=== PATIENT | male | born 1970 | race Caucasian/White ===

== ENCOUNTER 2016-05-07 11:58 | Emergency (ER) | payer SELFPAY ==
[2016-05-07] MEDS ORDERED: DOXEPIN 25 MG CAPSULE PO STA (13:35)
[2016-05-07] MEDS ORDERED: QUEtiapine 25 MG TABLET PO STA (13:35)
[2016-05-07] MEDS ORDERED: QUEtiapine 100 MG TABLET PO STA (13:40)
== END 2016-05-07 13:49 | disposition home or self-care (01) ==
DX: F31.9 Bipolar disorder, unspecified (principal); Z76.0 Encounter for issue of repeat prescription; E11.9 Type 2 diabetes mellitus without complications; G47.00 Insomnia, unspecified
CPT/HCPCS: 99283; A9270

== ENCOUNTER 2016-07-06 01:52 | Outpatient (CLI) | payer SELFPAY | END 2016-07-06 01:53 | disposition critical access hospital (66) | LOC: EMS 01:52 | PROVIDERS: ATTEND Surgery | DX: R07.9 Chest pain, unspecified (principal); R00.0 Tachycardia, unspecified; F41.9 Anxiety disorder, unspecified | CPT/HCPCS: A0425; A0429 ==

== ENCOUNTER 2016-07-06 02:11 | Emergency (ER) | payer SELFPAY ==
--- NOTE | 2016-07-06 02:52 | ED Physician Documentation ---
History of Present Illness - Stated complaint Stated Complaint: RAPID HEART RATE - Chief complaint Chief Complaint: Cardiac PD PAST MEDICAL HISTORY - Past Medical History Past Medical History: Yes Cardiovascular: None Respiratory: None Neuro: None Endocrine/Autoimmune: Type 2 diabetes GI: Other : None HEENT: None Psych: Anxiety, Other Musculoskeletal: Other Derm: None Other Past Medical History: ABDOMINAL HERNIA...INSOMNIA..NON COMPLIANT DM... - Past Surgical History Past Surgical History: No - Present Medications Home Medications: Ambulatory Orders Medication Instructions Recorded Confirmed Clonazepam 1 mg PO QPM 01/18/16 05/07/16 QUEtiapine [SEROquel] 1 tab PO DAILY 01/18/16 05/07/16 Clonazepam [Klonopin] 1 mg PO BID #14 tablet 05/07/16 Doxepin HCl 75 mg PO DAILY #30 capsule 05/07/16 Doxepin [SINEquan] 75 mg ORAL DAILY 05/07/16 05/07/16 QUEtiapine [SEROquel] 100 mg PO QPM #30 tablet 05/07/16 Quetiapine Fumarate [Seroquel] 2 tab PO QPM #60 tablet 05/07/16 - Allergies Allergies/Adverse Reactions: Allergies Allergy/AdvReac Type Severity Reaction Status Date / Time No Known Drug Allergies Allergy Verified 07/06/16 02:28 - Social History Does the pt smoke?: No Smoking Status: Never smoker Does the pt drink ETOH?: Yes Does the pt have substance abuse?: No - Immunizations Immunizations are current?: No - POLST Patient has POLST: No Results - Vitals Vitals: Vital Signs - 24 hr 07/06/16 07/06/16 02:20 02:37 Temperature 36.3 C L Heart Rate 99 Respiratory 19 Rate Blood Pressure 138/82 H Blood Pressure 138/82 H [Left] Blood Pressure 129/71 [Right] O2 Saturation 98 Oxygen O2 Source Room air
--- NOTE | 2016-07-06 02:53 | ED Physician Documentation ---
PD HPI CHEST PAIN - Stated complaint Stated Complaint: RAPID HEART RATE - Chief complaint Chief Complaint: Cardiac - History obtained from History obtained from: Patient - History of Present Illness Timing - onset: Today Timing - onset during: Rest, Light activity Timing - duration: Hours Timing - details: Intermittant, Waxing and waning Pain level now: 3 Quality: Pressure Location: Substernal Radiation: No: Jaw, Neck, Back, Abdominal, Left upper extremity, Right upper extremity Improved by: Nothing Worsened by: No: Exertion, Inspiration, Eating, Movement, Palpation, Position Associated symptoms: General Weakness, Palpitations Similar symptoms before: Has not had sx before Recently seen: Not recently seen Review of Systems Constitutional: reports: Reviewed and negative Cardiac: reports: Chest pain / pressure, Palpitations Respiratory: reports: Reviewed and negative GI: reports: Reviewed and negative PD PAST MEDICAL HISTORY - Past Medical History Past Medical History: Yes Cardiovascular: None Respiratory: None Neuro: None Endocrine/Autoimmune: Type 2 diabetes GI: Other : None HEENT: None Psych: Anxiety, Other Musculoskeletal: Other Derm: None Other Past Medical History: ABDOMINAL HERNIA...INSOMNIA..NON COMPLIANT DM... - Past Surgical History Past Surgical History: No - Present Medications Home Medications: Ambulatory Orders Medication Instructions Recorded Confirmed Clonazepam 1 mg PO QPM 01/18/16 05/07/16 QUEtiapine [SEROquel] 1 tab PO DAILY 01/18/16 05/07/16 Clonazepam [Klonopin] 1 mg PO BID #14 tablet 05/07/16 Doxepin HCl 75 mg PO DAILY #30 capsule 05/07/16 Doxepin [SINEquan] 75 mg ORAL DAILY 05/07/16 05/07/16 QUEtiapine [SEROquel] 100 mg PO QPM #30 tablet 05/07/16 Quetiapine Fumarate [Seroquel] 2 tab PO QPM #60 tablet 05/07/16 Metformin HCl 500 mg PO BID #60 tablet 07/06/16 - Allergies Allergies/Adverse Reactions: Allergies Allergy/AdvReac Type Severity Reaction Status Date / Time No Known Drug Allergies Allergy Verified 07/06/16 02:28 - Social History Does the pt smoke?: No Smoking Status: Never smoker Does the pt drink ETOH?: Yes Does the pt have substance abuse?: No - Immunizations Immunizations are current?: No - POLST Patient has POLST: No PD ED PE NORMAL - Vitals Vital signs reviewed: Yes - General General: Alert and oriented X 3, No acute distress, Well developed/nourished - Cardiac Cardiac: RRR, No murmur, No gallop, No rub - Respiratory Respiratory: No respiratory distress, Clear bilaterally - Abdomen Abdomen: Soft, Non tender - Extremities Extremities: No edema Results - Vitals Vitals: Oxygen O2 Source Room air - EKG (time done) No standard instances Rate: Rate (enter#) (95) Rhythm: NSR [place]: LAD Intervals: Prolonged VA, Other (borderline NSIVCD) QRS: Normal Ischemia: Normal ST segments - Labs Labs: Laboratory Tests 07/06/16 07/06/16 07/06/16 03:15 03:15 03:15 WBC 7.1 RBC 4.42 L Hgb 12.8 L Hct 38.3 L MCV 86.7 MCH 29.0 MCHC 33.4 RDW 13.4 Plt Count 233 MPV 8.6 Neut # 5.6 Lymph # 0.9 L [place] # 0.5 Eos # 0.1 Baso # 0.0 Absolute Nucleated RBC 0.00 Nucleated RBCs 0.0 Sodium 137 Potassium 4.4 Chloride 102 Carbon Dioxide 25 Anion Gap 10.0 BUN 22 H Creatinine 1.1 Estimated GFR (MDRD) 72 L Glucose 244 H Calcium 9.5 Total Bilirubin 0.4 AST 24 ALT 32 Alkaline Phosphatase 62 Troponin I < 0.04 Total Protein 7.3 Albumin 4.2 Globulin 3.1 Albumin/Globulin Ratio 1.4 Lipase 21 L - Rads (name of study) chest xray Radiology: Prelim report reviewed, See rad report PD MEDICAL DECISION MAKING - ED course Complexity details: reviewed results, re-evaluated patient, considered differential, d/w patient Departure - Departure Disposition: Home, Self Care Clinical Impression: Hyperglycemia Chest pain Qualifiers: Chest pain type: unspecified Qualified Code(s): R07.9 - Chest pain, unspecified Condition: Good Instructions: ED Chest Pain Atypical Unkn Cause, ED Hyperglycemia Diabetic Follow-Up: [facility] [Provider Group] [facility] [Provider Group] Prescriptions: Metformin HCl 500 mg PO BID #60 tablet Discharge Date/Time: 07/06/16 04:39
[2016-07-06 03:26] LABS: BASOPHILS % (AUTO) 0.6 %; EOSINOPHILS # (AUTO) 0.1 10^3/uL (0.0-0.7); HCT - HEMATOCRIT 38.3 % (42.0-52.0); HGB - HEMOGLOBIN 12.8 g/dL (14.0-18.0); LYMPHOCYTES # (AUTO) 0.9 10^3/uL (1.5-3.5); LYMPHOCYTES % (AUTO) 13.3 %; MEAN CORPUSCULAR HGB CONC 33.4 g/dL (32.0-36.0); MEAN CORPUSCULAR VOLUME 86.7 fL (80.0-94.0); MEAN PLATELET VOLUME 8.6 fL (7.4-11.4); MONOCYTES # (AUTO) 0.5 10^3/uL (0.0-1.0); MONOCYTES % (AUTO) 6.4 %; NEUTROPHILS # (AUTO) 5.6 10^3/uL (1.5-6.6); NEUTROPHILS % (AUTO) 78.7 %; RED BLOOD COUNT 4.42 10^6/uL (4.70-6.10); RED CELL DISTRIBUTION WIDTH 13.4 % (12.0-15.0); UNCORRECTED WHITE BLOOD COUNT 7.1 x10^3/uL; WHITE BLOOD COUNT 7.1 x10^3/uL (4.8-10.8)
[2016-07-06 03:37] LABS: ALBUMIN/GLOBULIN RATIO 1.4 (1.0-2.2); BILIRUBIN,TOTAL 0.4 mg/dL (0.2-1.0); CALCIUM 9.5 mg/dL (8.5-10.3); CREATININE 1.1 mg/dL (0.6-1.2); POTASSIUM 4.4 mmol/L (3.5-5.0); TOTAL PROTEIN 7.3 g/dL (6.7-8.2)
--- NOTE | 2016-07-06 03:56 | XRAY Preliminary Report ---
Exam: XR Chest 2 View PA/LAT IMPRESSION: 1. No acute abnormality seen in the chest. [facility] SITE ID: [id number]
--- NOTE | 2016-07-06 03:58 | XRAY Report ---
EXAM: CHEST RADIOGRAPHY EXAM DATE: 07/06/2016 03:47 AM. CLINICAL HISTORY: Chest pain. COMPARISON: None. TECHNIQUE: 2 views. FINDINGS: Lungs/Pleura: No focal opacities evident. No pleural effusion. No pneumothorax. Normal volumes. Mediastinum: Heart and mediastinal contours are unremarkable. Other: None. IMPRESSION: 1. No acute abnormality seen in the chest. [facility] Referring Provider Line: [phone] SITE ID: [id number]
[2016-07-06] MEDS ORDERED: metFORMIN 500 MG TABLET PO STA (04:24)
[2016-07-06] MEDS ORDERED: metFORMIN 500 MG TABLET ONE (04:30)
[2016-07-06 04:39] VITALS: BP 144/65
== END 2016-07-06 04:39 | disposition home or self-care (01) ==
LOC: EDUNIT# → ED 02:11
DX: E11.65 Type 2 diabetes mellitus with hyperglycemia (principal); Z79.84 Long term (current) use of oral hypoglycemic drugs; R07.9 Chest pain, unspecified
CPT/HCPCS: 36415; 71020; 80053; 83690; 84484; 85025; 93005; 93010; 99284; A9270

== ENCOUNTER 2016-08-31 21:25 | Emergency (ER) | payer MEDICAID ==
[2016-08-31] MEDS ORDERED: QUEtiapine 25 MG TABLET PO STA (22:06)
--- NOTE | 2016-08-31 22:09 | ED Physician Documentation ---
History of Present Illness - Stated complaint Stated Complaint: MED REFILL - Chief complaint Chief Complaint: General - History obtained from History obtained from: Patient - History of Present Illness Timing: Other (Having trouble finding primary care and insurance and needs a refill of his Seroquel and doxepin and clonazepam for insomnia. No acute issues.) Review of Systems Constitutional: denies: Fever, Chills Psychiatric: denies: Depressed, Suicidal, Homicidal, Hallucinations, Delusions, Anxiety Endocrine: reports: Reviewed and negative PD PAST MEDICAL HISTORY - Past Medical History Cardiovascular: None Respiratory: None Neuro: None Endocrine/Autoimmune: Type 2 diabetes GI: Other : None HEENT: None Psych: Anxiety, Other Musculoskeletal: Other Derm: None - Past Surgical History Past Surgical History: No - Present Medications Home Medications: Ambulatory Orders Medication Instructions Recorded Confirmed Clonazepam 1 mg PO QPM 01/18/16 05/07/16 QUEtiapine [SEROquel] 1 tab PO DAILY 01/18/16 05/07/16 Clonazepam [Klonopin] 1 mg PO BID #14 tablet 05/07/16 Doxepin HCl 75 mg PO DAILY #30 capsule 05/07/16 Doxepin [SINEquan] 75 mg ORAL DAILY 05/07/16 05/07/16 QUEtiapine [SEROquel] 100 mg PO QPM #30 tablet 05/07/16 Quetiapine Fumarate [Seroquel] 2 tab PO QPM #60 tablet 05/07/16 Metformin HCl 500 mg PO BID #60 tablet 07/06/16 Doxepin HCl 75 mg PO DAILY #30 capsule 08/31/16 Quetiapine Fumarate [Seroquel] 2 tab PO DAILY PM #60 tablet 08/31/16 Quetiapine Fumarate [Seroquel] 100 mg PO DAILY PM #30 tablet 08/31/16 - Allergies Allergies/Adverse Reactions: Allergies Allergy/AdvReac Type Severity Reaction Status Date / Time No Known Drug Allergies Allergy Verified 07/06/16 02:28 - Social History Does the pt smoke?: No Smoking Status: Never smoker Does the pt drink ETOH?: Yes Does the pt have substance abuse?: No - Immunizations Immunizations are current?: No - POLST Patient has POLST: No PD ED PE NORMAL - Vitals Vital signs reviewed: Yes - General General: Alert and oriented X 3, No acute distress - Neuro Neuro: Alert and oriented X 3, Normal speech - Psych Psych: Normal mood, Normal affect Results - Vitals Vitals: Vital Signs - 24 hr 08/31/16 08/31/16 21:35 22:52 Temperature 36.4 C L 36.6 C Heart Rate 86 86 Respiratory 16 20 Rate Blood Pressure 133/91 H 124/89 H O2 Saturation 100 99 Oxygen O2 Source Room air PD MEDICAL DECISION MAKING - ED course ED course: I discussed with him that I was happy to refill the Seroquel and doxepin, but clonazepam would not be refilled from the emergency department and further refills must come from a primary care physician. Departure - Departure Disposition: Home, Self Care Clinical Impression: Insomnia Qualifiers: Insomnia type: primary Qualified Code(s): F51.01 - Primary insomnia Condition: Good Record reviewed to determine appropriate education?: Yes Instructions: ED Insomnia Follow-Up: [facility] [Provider Group] Prescriptions: Doxepin HCl 75 mg PO DAILY #30 capsule Quetiapine Fumarate [Seroquel] 100 mg PO DAILY PM #30 tablet Quetiapine Fumarate [Seroquel] 2 tab PO DAILY PM #60 tablet Comments: Further prescriptions to come from her primary care physician or psychiatrist. Follow-up with [facility] at [phone] to schedule psychiatric care and counseling.
[2016-08-31 22:53] VITALS: BP 124/89
== END 2016-08-31 22:58 | disposition home or self-care (01) ==
LOC: ED 21:25
DX: G47.00 Insomnia, unspecified (principal); E11.9 Type 2 diabetes mellitus without complications; Z79.84 Long term (current) use of oral hypoglycemic drugs
CPT/HCPCS: 99282; 99283; A9270

== ENCOUNTER 2016-12-17 17:37 | Outpatient (CLI) | payer MEDICAID ==
--- NOTE | 2016-12-18 19:04 | Ultrasound Report ---
TESTICULAR ULTRASOUND: 12/17/2016 COMPARISON: None. INDICATION: Pelvic pain. TECHNIQUE: Sonographic evaluation of the testes was performed. FINDINGS: The testes appear normal in size, contour, and echogenicity without mass. There is a small right slightly complex hydrocele. There is a very small left hydrocele. There are bilateral epididymal cysts, 1.1 cm on the right and 0.4 cm on the left. Right testis 4.5 x 2.7 x 2.2 cm. Right epididymis 3.4 x 1.6 x 1.2 cm. Left testis 4.5 x 2.6 x 2.3 cm. Left epididymis 2.9 x 1.2 x 0.8 cm. No skin thickening. The testes demonstrate normal color Doppler flow. Bilateral groin imaging was performed. There is no evidence of hernia. IMPRESSION: BILATERAL EPIDIDYMAL CYSTS AND VERY SMALL HYDROCELES. NO ACUTE FINDINGS. JOB #: [id number] EXT JOB #: [id number] [facility]
== END 2016-12-17 17:38 | disposition home or self-care (01) ==
LOC: DI 17:37
PROVIDERS: ATTEND Physician Assistant Medical
DX: N50.3 Cyst of epididymis (principal); N43.3 Hydrocele, unspecified
CPT/HCPCS: 76870

== ENCOUNTER 2017-03-22 20:11 | Emergency (ER) | payer MEDICAID ==
[2017-03-22] MEDS ORDERED: SODIUM CHLORIDE 0.9% 1,000 ML IV ONE (20:28)
--- NOTE | 2017-03-22 20:34 | ED Physician Documentation ---
History of Present Illness - Stated complaint Stated Complaint: FLU LIKE SYMPTOMS - Chief complaint Chief Complaint: General - History obtained from History obtained from: Patient, Family - History of Present Illness Timing: How many days ago (6) Pain level max: 0 Pain level now: 0 Improved by: rest Worsened by: exertion - Additonal information Additional information: Patient is a 46-year-old male who presents to the emergency department with vomiting for the past 5 days, none today. States has not had any diarrhea. No abdominal pain. Intermittent rhinorrhea, congestion and mild cough. He is diabetic does not know what his blood sugars been. Has been feeling run down and like he is dehydrated. States he is feeling weak today. Also complains that he has a right lower tooth was abscess that he "popped with a dental instrument at home". Review of Systems Constitutional: denies: Fever, Chills Ears: denies: Ear pain Nose: reports: Rhinorrhea / runny nose, Congestion GI: reports: Nausea, Vomiting Skin: denies: Rash Musculoskeletal: denies: Neck pain, Back pain Neurologic: denies: Focal weakness, Numbness, Headache PD PAST MEDICAL HISTORY - Past Medical History Cardiovascular: None Respiratory: None Neuro: None Endocrine/Autoimmune: Type 2 diabetes GI: Other : None HEENT: None Psych: Anxiety, Other Musculoskeletal: Other Derm: None - Past Surgical History Past Surgical History: No - Present Medications Home Medications: Ambulatory Orders Medication Instructions Recorded Confirmed QUEtiapine [SEROquel] 1 tab PO DAILY 01/18/16 05/07/16 clonazePAM [Clonazepam] 1 mg PO QPM 01/18/16 05/07/16 Doxepin HCl 75 mg PO DAILY #30 capsule 05/07/16 Doxepin [SINEquan] 75 mg ORAL DAILY 05/07/16 05/07/16 QUEtiapine [SEROquel] 100 mg PO QPM #30 tablet 05/07/16 Quetiapine Fumarate [Seroquel] 2 tab PO QPM #60 tablet 05/07/16 clonazePAM [Klonopin] 1 mg PO BID #14 tablet 05/07/16 Metformin HCl 500 mg PO BID #60 tablet 07/06/16 Doxepin HCl 75 mg PO DAILY #30 capsule 08/31/16 Quetiapine Fumarate [Seroquel] 2 tab PO DAILY PM #60 tablet 08/31/16 Quetiapine Fumarate [Seroquel] 100 mg PO DAILY PM #30 tablet 08/31/16 Hydrocodone/Acetaminophen 1 - 2 each PO Q6H PRN #12 tablet 03/22/17 [Hydrocodon-Acetaminophen 5-325] Ondansetron Odt [Zofran] 4 mg TL Q6H PRN #10 tablet 03/22/17 Penicillin V Potassium 500 mg PO Q6HR #40 tablet 03/22/17 - Allergies Allergies/Adverse Reactions: Allergies Allergy/AdvReac Type Severity Reaction Status Date / Time No Known Drug Allergies Allergy Verified 03/22/17 20:20 - Social History Does the pt smoke?: No Smoking Status: Never smoker Does the pt drink ETOH?: Yes Does the pt have substance abuse?: No - Immunizations Immunizations are current?: No - POLST Patient has POLST: No PD ED PE NORMAL - Vitals Vital signs reviewed: Yes - General General: Alert and oriented X 3, No acute distress - HEENT HEENT: Other (dry lips and tongue) - Neck Neck: Supple, no meningeal sign - Cardiac Cardiac: RRR, Strong equal pulses - Respiratory Respiratory: No respiratory distress, Clear bilaterally - Abdomen Abdomen: Soft, Non tender, Non distended - Derm Derm: Warm and dry - Neuro Neuro: Alert and oriented X 3 PD ED PE EXPANDED - HEENT HEENT Visual: 1 - tenderness (Dental caries without gingival swelling or abscess) Results - Vitals Vitals: Vital Signs - 24 hr 03/22/17 03/22/17 20:16 21:55 Temperature 36.8 C 36.8 C Heart Rate 78 74 Respiratory 20 18 Rate Blood Pressure 143/95 H 149/84 H O2 Saturation 100 100 Oxygen O2 Source Room air - Labs Labs: Laboratory Tests 03/22/17 03/22/17 03/22/17 20:48 20:48 20:48 WBC 7.0 RBC 4.49 L Hgb 12.7 L Hct 36.5 L MCV 81.3 MCH 28.3 MCHC 34.8 RDW 13.8 Plt Count 310 MPV 7.8 Neut # 4.9 Lymph # 1.1 L [place] # 0.7 Eos # 0.3 Baso # 0.1 Absolute Nucleated RBC 0.00 Nucleated RBC % 0.0 VBG pH 7.342 VBG pCO2 51.0 VBG pO2 30.1 VBG HCO3 27.0 VBG Total CO2 28.6 VBG O2 Saturation 59.2 L VBG Base Excess 0.5 Sodium 130 L Potassium 4.8 Chloride 93 L Carbon Dioxide 26 Anion Gap 11.0 BUN 22 H Creatinine 1.0 Estimated GFR (MDRD) 80 L Glucose 348 H Calcium 10.0 Total Bilirubin 0.4 AST 30 ALT 52 Alkaline Phosphatase 97 Total Protein 8.6 H Albumin 4.2 Globulin 4.3 H Albumin/Globulin Ratio 1.0 Lipase 23 Serum Ketones NEGATIVE PD MEDICAL DECISION MAKING - ED course Complexity details: reviewed results, re-evaluated patient, considered differential, d/w patient, d/w family ED course: Patient is a 46-year-old male who is diabetic who has had vomiting this week, no evidence of DKA. Appears to be a likely viral illness. Has not had any vomiting today. Feels better after IV fluids. Will prescribe Zofran for home in case he has recurrent vomiting. His blood sugar is elevated and he will follow-up with his doctor for further evaluation of this. Will not adjust his medications at this time. Patient also appears to have dental caries and will place on antibiotics, has an appointment with his dentist on Friday. We will also prescribe a small amount of pain medication for him. He is well-appearing , nontoxic. Afebrile. Tolerating p.o. without difficulty. Ambulating with a steady gait. Patient and family counseled regarding signs and symptoms for which I believe and urgent re-evaluation would be necessary. Patient with good understanding of and agreement to plan and is comfortable going home at this time This document was made in part using voice recognition software. While efforts are made to proofread this document, sound alike and grammatical errors may occur. Departure - Departure Disposition: Home, Self Care Clinical Impression: Hyperglycemia, Dehydration, Dental caries Condition: Good Instructions: ED Dehydration, ED Cavity Dental Follow-Up: Garry Guido DO [Primary Care Provider] - Within 1 week Prescriptions: Penicillin V Potassium 500 mg PO Q6HR #40 tablet Hydrocodone/Acetaminophen [Hydrocodon-Acetaminophen 5-325] 1 - 2 each PO Q6H PRN #12 tablet PRN Reason: pain Ondansetron Odt [Zofran] 4 mg TL Q6H PRN #10 tablet PRN Reason: Nausea / Vomiting Comments: Take all antibiotics until gone. Return if you worsen. You need to monitor your blood sugars closely at home and follow-up with your doctor to have your medications adjusted. Do not drink alcohol or drive while on narcotic pain medicine. Note that many narcotic pain relievers also contain tylenol/acetaminophen. Please ensure that your total dose of acetaminophen from all sources does not exceed 3 grams (3000mg) per day. You may constipated on this medication, take a stool softener such as "Colace" twice a day while you are on it. Also recommend a [id number] laxative such as senna or MiraLAX any day that you do not have a bowel movement. If you received narcotic pain medication in the emergency department, do not drive or operate machinery for the next 24 hours. Discharge Date/Time: 03/22/17 21:00
[2017-03-22 20:54] LABS: BASOPHILS # (AUTO) 0.1 10^3/uL (0.0-0.1); BASOPHILS % (AUTO) 1.4 %; EOSINOPHILS # (AUTO) 0.3 10^3/uL (0.0-0.7); EOSINOPHILS % (AUTO) 3.6 %; HGB - HEMOGLOBIN 12.7 g/dL (14.0-18.0); LYMPHOCYTES # (AUTO) 1.1 10^3/uL (1.5-3.5); LYMPHOCYTES % (AUTO) 16.4 %; MEAN CORPUSCULAR HEMOGLOBIN 28.3 pg (27.0-31.0); MEAN CORPUSCULAR HGB CONC 34.8 g/dL (32.0-36.0); MEAN CORPUSCULAR VOLUME 81.3 fL (80.0-94.0); MEAN PLATELET VOLUME 7.8 fL (7.4-11.4); MONOCYTES # (AUTO) 0.7 10^3/uL (0.0-1.0); MONOCYTES % (AUTO) 9.5 %; NEUTROPHILS # (AUTO) 4.9 10^3/uL (1.5-6.6); NEUTROPHILS % (AUTO) 69.1 %; PLT - PLATELET COUNT 310 10^3/uL (130-450); RED BLOOD COUNT 4.49 10^6/uL (4.70-6.10); RED CELL DISTRIBUTION WIDTH 13.8 % (12.0-15.0)
[2017-03-22 20:59] LABS: KETONES, SERUM (ACETEST) NEGATIVE (NEGATIVE)
[2017-03-22 21:00] LABS: VBG BASE EXCESS 0.5 mmol/L (-2 - +2); VBG PH 7.342 (7.31-7.41); VBG PO2 30.1 mmHg (25-47); VBG TOTAL CO2 28.6 mmol/L (24-29)
[2017-03-22 21:04] LABS: ALBUMIN 4.2 g/dL (3.2-5.5); ALKALINE PHOSPHATASE 97 IU/L (42-121); ALT ALANINE AMINOTRANSFERASE 52 IU/L (10-60); AST ASPARTATE AMINOTRANSFERASE 30 IU/L (10-42); BILIRUBIN,TOTAL 0.4 mg/dL (0.2-1.0); BUN - BLOOD UREA NITROGEN 22 mg/dL (6-20); CARBON DIOXIDE - CO2 26 mmol/L (21-32); CHLORIDE 93 mmol/L (101-111); GFR - MDRD 80 (>89); GLUCOSE 348 mg/dL (70-100); LIPASE 23 U/L (22-51); SODIUM 130 mmol/L (135-145); TOTAL PROTEIN 8.6 g/dL (6.7-8.2)
[2017-03-22] MEDS ORDERED: HYDROcod/ACETAM 5/325 MG TABLET PO STA (21:51)
[2017-03-22 22:21] VITALS: BP 149/84
== END 2017-03-22 21:00 | disposition home or self-care (01) ==
LOC: ED 20:11
DX: E11.65 Type 2 diabetes mellitus with hyperglycemia (principal); E86.0 Dehydration; K02.9 Dental caries, unspecified; Z79.84 Long term (current) use of oral hypoglycemic drugs
CPT/HCPCS: 36415; 80053; 82009; 82803; 83690; 85025; 96360; 99283; 99284; A9270

== ENCOUNTER 2017-03-27 08:00 | Outpatient (CLI) | payer MEDICAID ==
[2017-03-27 13:28] LABS: ALBUMIN 3.8 g/dL (3.2-5.5); ALKALINE PHOSPHATASE 79 IU/L (42-121); ALT ALANINE AMINOTRANSFERASE 45 IU/L (10-60); AST ASPARTATE AMINOTRANSFERASE 24 IU/L (10-42); BILIRUBIN,TOTAL 0.2 mg/dL (0.2-1.0); BUN - BLOOD UREA NITROGEN 18 mg/dL (6-20); CALCIUM 9.6 mg/dL (8.5-10.3); CARBON DIOXIDE - CO2 27 mmol/L (21-32); CHLORIDE 95 mmol/L (101-111); CHOL/HDL RATIO 5.4 (<5.0); CHOLESTEROL 226 mg/dL; CREATININE 1.2 mg/dL (0.6-1.2); GFR - MDRD 65 (>89); GLUCOSE 271 mg/dL (70-100); HDL CHOLESTEROL 42 mg/dL; SODIUM 131 mmol/L (135-145); TOTAL PROTEIN 7.5 g/dL (6.7-8.2)
[2017-03-27 13:59] LABS: HB2 TOTAL 13.9 g/dL; HEMOGLOBIN A1C 1.42 g/dL; HEMOGLOBIN A1C % 11.5 % (4.6-6.2)
[2017-03-27 14:01] LABS: LDL CHOLESTEROL,DIRECT 145 mg/dL; LDLD/HDL RATIO 3.5 (<3.6)
== END 2017-03-27 08:01 ==
LOC: LAB.WCP 08:00
PROVIDERS: ATTEND Family Medicine
DX: E11.9 Type 2 diabetes mellitus without complications (principal)
CPT/HCPCS: 36415; 80053; 80061; 83036; 83721

== ENCOUNTER 2017-04-07 17:43 | Emergency (ER) | payer MEDICAID ==
[2017-04-07] MEDS ORDERED: LIDOCAINE 2% URO-JET 5 ML SYRINGE UR STA (18:16)
--- NOTE | 2017-04-07 18:29 | ED Physician Documentation ---
History of Present Illness - Stated complaint Stated Complaint: MALE - Chief complaint Chief Complaint: General - History obtained from History obtained from: Patient, Family - History of Present Illness Timing: How many days ago (3) Pain level max: 8 Pain level now: 8 Improved by: nothing Worsened by: nothing - Additonal information Additional information: states no BM for 3 days. unable to urinate today. Attempted to disimpact himself with the handle of a spoon today and then had rectal bleeding. Patient also states that he has a continued dental infection in his mouth, has been unable to see his dentist since he was last seen here. Requesting a refill of antibiotics. Review of Systems Ten Systems: 10 systems reviewed and negative Constitutional: denies: Fever, Chills Ears: denies: Ear pain Nose: denies: Rhinorrhea / runny nose, Congestion Throat: denies: Sore throat Cardiac: denies: Chest pain / pressure Respiratory: denies: Cough, Wheezing : reports: Unable to Void Skin: denies: Rash Musculoskeletal: denies: Neck pain, Back pain Neurologic: denies: Focal weakness, Numbness, Headache PD PAST MEDICAL HISTORY - Past Medical History Cardiovascular: None Respiratory: None Neuro: None Endocrine/Autoimmune: Type 2 diabetes GI: Other : None HEENT: None Psych: Anxiety, Other Musculoskeletal: Other Derm: None - Past Surgical History Past Surgical History: No - Present Medications Home Medications: Ambulatory Orders Medication Instructions Recorded Confirmed QUEtiapine [SEROquel] 1 tab PO DAILY 01/18/16 05/07/16 clonazePAM [Clonazepam] 1 mg PO QPM 01/18/16 05/07/16 Doxepin HCl 75 mg PO DAILY #30 capsule 05/07/16 Doxepin [SINEquan] 75 mg ORAL DAILY 05/07/16 05/07/16 QUEtiapine [SEROquel] 100 mg PO QPM #30 tablet 05/07/16 Quetiapine Fumarate [Seroquel] 2 tab PO QPM #60 tablet 05/07/16 clonazePAM [Klonopin] 1 mg PO BID #14 tablet 05/07/16 Metformin HCl 500 mg PO BID #60 tablet 07/06/16 Doxepin HCl 75 mg PO DAILY #30 capsule 08/31/16 Quetiapine Fumarate [Seroquel] 2 tab PO DAILY PM #60 tablet 08/31/16 Quetiapine Fumarate [Seroquel] 100 mg PO DAILY PM #30 tablet 08/31/16 Hydrocodone/Acetaminophen 1 - 2 each PO Q6H PRN #12 tablet 03/22/17 [Hydrocodon-Acetaminophen 5-325] Ondansetron Odt [Zofran] 4 mg TL Q6H PRN #10 tablet 03/22/17 Penicillin V Potassium 500 mg PO Q6HR #40 tablet 03/22/17 Hydrocodone/Acetaminophen 1 - 2 each PO Q6H PRN #6 tablet 04/07/17 [Hydrocodon-Acetaminophen 5-325] Penicillin V Potassium 500 mg PO Q6HR #40 tablet 04/07/17 - Allergies Allergies/Adverse Reactions: Allergies Allergy/AdvReac Type Severity Reaction Status Date / Time No Known Drug Allergies Allergy Verified 03/22/17 20:20 - Social History Does the pt smoke?: No Smoking Status: Never smoker Does the pt drink ETOH?: Yes Does the pt have substance abuse?: No - Immunizations Immunizations are current?: No - POLST Patient has POLST: No PD ED PE NORMAL - Vitals Vital signs reviewed: Yes - General General: Alert and oriented X 3, No acute distress, Well developed/nourished - HEENT HEENT: PERRL, Ears normal, Moist mucous membranes, Pharynx benign, Other (Poor dentition, no drainable abscess. No facial swelling) - Neck Neck: Supple, no meningeal sign - Cardiac Cardiac: RRR, Strong equal pulses - Respiratory Respiratory: No respiratory distress, Clear bilaterally - Abdomen Abdomen: Soft, Non distended, Other (Tender to palpation left lower quadrant Without peritoneal signs) - Rectal Rectal: Other (Small amount of bright red blood on the finger. Appears secondary to hemorrhoidal bleeding. Unable to palpate stool. He does have excoriation dexter around the anus) - Back Back: No spinal TTP - Derm Derm: Warm and dry, No rash - Extremities Extremities: No calf tenderness / cord - Neuro Neuro: Alert and oriented X 3 - Psych Psych: Normal mood, Normal affect Results - Vitals Vitals: Vital Signs - 24 hr 04/07/17 04/07/17 04/07/17 17:48 19:30 20:49 Temperature 37 C 36.7 C Heart Rate 92 87 92 Respiratory 16 18 14 Rate Blood Pressure 137/93 H 141/86 H 111/78 O2 Saturation 98 100 100 Oxygen O2 Source Room air - Labs Labs: Laboratory Tests 04/07/1718 04/07/17 18:27 18:27 18:27 WBC 13.4 H RBC 4.75 Hgb 13.0 L Hct 40.3 L MCV 84.7 MCH 27.3 MCHC 32.2 RDW 13.8 Plt Count 335 MPV 8.3 Neut # 11.6 H Lymph # 0.9 L [place] # 0.8 Eos # 0.1 Baso # 0.1 Absolute Nucleated RBC 0.01 Nucleated RBC % 0.1 PT 10.6 INR 0.9 APTT 26.6 Sodium Potassium Chloride Carbon Dioxide Anion Gap BUN Creatinine Estimated GFR (MDRD) Glucose Calcium Total Bilirubin AST ALT Alkaline Phosphatase Total Protein Albumin Globulin Albumin/Globulin Ratio Lipase Urine Color Urine Clarity Urine pH Ur Specific [place] Urine Protein Urine Glucose (UA) Urine Ketones Urine Occult Blood Urine Nitrite Urine Bilirubin Urine Urobilinogen Ur Leukocyte Esterase Ur Microscopic Review Urine Culture Comments Blood Type A POSITIVE Antibody Screen NEGATIVE 04/07/17 04/07/17 18:27 18:27 WBC RBC Hgb Hct MCV MCH MCHC RDW Plt Count MPV Neut # Lymph # [place] # Eos # Baso # Absolute Nucleated RBC Nucleated RBC % PT INR APTT Sodium 130 L Potassium 4.6 Chloride 95 L Carbon Dioxide 23 Anion Gap 12.0 BUN 12 Creatinine 1.0 Estimated GFR (MDRD) 80 L Glucose 250 H Calcium 9.0 Total Bilirubin 0.4 AST 22 ALT 43 Alkaline Phosphatase 66 Total Protein 8.0 Albumin 4.4 Globulin 3.6 Albumin/Globulin Ratio 1.2 Lipase 20 L Urine Color YELLOW Urine Clarity CLEAR Urine pH 6.0 Ur Specific [place] <=1.005 Urine Protein NEGATIVE Urine Glucose (UA) 500 H Urine Ketones NEGATIVE Urine Occult Blood NEGATIVE Urine Nitrite NEGATIVE Urine Bilirubin NEGATIVE Urine Urobilinogen 0.2 (NORMAL) Ur Leukocyte Esterase NEGATIVE Ur Microscopic Review NOT INDICATED Urine Culture Comments NOT INDICATED Blood Type Antibody Screen - Rads (name of study) CT abdomen pelvis Radiology: Prelim report reviewed, EMP read contemporaneously, See rad report ( Small rectal stool ball with mild presacral edema. diverticulosis. o/w normal. ) PD MEDICAL DECISION MAKING - ED course Complexity details: reviewed old records, reviewed results, re-evaluated patient , considered differential, d/w patient, d/w family ED course: Patient is a 46-year-old male who presents with several problems, the first is acute urinary retention, a Luis catheter was placed in his bladder was drained. Approximately 1500 cc of urine drained. The second appears to be constipation, this was resolved with a mineral oil enema. Large bowel movement produced. It appears that the stool was blocking the neck of the bladder, causing the urinary obstruction. The catheter was then removed and he is able to urinate in the emergency department. No evidence of perforation. Counseled not to use any foreign objects to try to disimpact himself in the future. Will refill antibiotics for his dental infection. Encouraged follow-up with his dentist. Patient and family counseled regarding signs and symptoms for which I believe and urgent re-evaluation would be necessary. Patient with good understanding of and agreement to plan and is comfortable going home at this time This document was made in part using voice recognition software. While efforts are made to proofread this document, sound alike and grammatical errors may occur. Departure - Departure Disposition: 01 Home, Self Care Clinical Impression: Urinary obstruction, Hematochezia, Dental caries Constipation Qualifiers: Constipation type: unspecified constipation type Qualified Code(s): K59.00 - Constipation, unspecified Condition: Good Instructions: ED Constipation, ED Hematochezia Stable Follow-Up: Garry Guido DO [Primary Care Provider] - Within 1 week Prescriptions: Penicillin V Potassium 500 mg PO Q6HR #40 tablet Hydrocodone/Acetaminophen [Hydrocodon-Acetaminophen 5-325] 1 - 2 each PO Q6H PRN #6 tablet PRN Reason: pain Comments: Follow up with your doctor within 1 week to recheck your blood counts. Drink plenty of water. Return if you worsen. Make sure to follow-up with a dentist for your tooth. Do not drink alcohol or drive while on narcotic pain medicine. Note that many narcotic pain relievers also contain tylenol/acetaminophen. Please ensure that your total dose of acetaminophen from all sources does not exceed 3 grams (3000mg) per day. You may constipated on this medication, take a stool softener such as "Colace" twice a day while you are on it. Also recommend a nobg-moi-nlliloj laxative such as senna or MiraLAX any day that you do not have a bowel movement. If you received narcotic pain medication in the emergency department, do not drive or operate machinery for the next 24 hours. Discharge Date/Time: 04/07/17 21:00
[2017-04-07 18:43] LABS: BASOPHILS # (AUTO) 0.1 10^3/uL (0.0-0.1); BASOPHILS % (AUTO) 0.6 %; EOSINOPHILS # (AUTO) 0.1 10^3/uL (0.0-0.7); EOSINOPHILS % (AUTO) 0.4 %; LYMPHOCYTES # (AUTO) 0.9 10^3/uL (1.5-3.5); LYMPHOCYTES % (AUTO) 6.5 %; MEAN CORPUSCULAR HEMOGLOBIN 27.3 pg (27.0-31.0); MEAN CORPUSCULAR HGB CONC 32.2 g/dL (32.0-36.0); MEAN CORPUSCULAR VOLUME 84.7 fL (80.0-94.0); MEAN PLATELET VOLUME 8.3 fL (7.4-11.4); MONOCYTES # (AUTO) 0.8 10^3/uL (0.0-1.0); MONOCYTES % (AUTO) 5.8 %; NEUTROPHILS # (AUTO) 11.6 10^3/uL (1.5-6.6); NEUTROPHILS % (AUTO) 86.7 %; PLT - PLATELET COUNT 335 10^3/uL (130-450); RED BLOOD COUNT 4.75 10^6/uL (4.70-6.10); RED CELL DISTRIBUTION WIDTH 13.8 % (12.0-15.0); WHITE BLOOD COUNT 13.4 x10^3/uL (4.8-10.8)
[2017-04-07 18:50] LABS: INR 0.9 (0.8-1.2); PT - PROTHROMBIN TIME 10.6 secs (9.9-12.6)
[2017-04-07 18:56] LABS: BILIRUBIN,URINE NEGATIVE (NEGATIVE); GLUCOSE, URINE (UA) 500 mg/dL (NEGATIVE); KETONES,URINE (UA) NEGATIVE (NEGATIVE); LEUKOCYTE ESTERASE, URINE NEGATIVE (NEGATIVE); NITRITE,URINE NEGATIVE (NEGATIVE); OCCULT BLOOD,URINE NEGATIVE (NEGATIVE); PROTEIN,URINE NEGATIVE (NEGATIVE); UROBILINOGEN,URINE 0.2 (NORMAL) E.U./dL (NORMAL)
[2017-04-07 18:58] LABS: ALBUMIN 4.4 g/dL (3.2-5.5); ALBUMIN/GLOBULIN RATIO 1.2 (1.0-2.2); BILIRUBIN,TOTAL 0.4 mg/dL (0.2-1.0)
[2017-04-07 18:59] LABS: CLARITY,URINE CLEAR (CLEAR)
[2017-04-07] MEDS ORDERED: IOPAMIDOL-300 100 ML VIAL ONE (19:09)
[2017-04-07] MEDS ORDERED: MINERAL OIL ENEMA 133 ML BOTTLE RC STA (19:28)
[2017-04-07] MEDS ORDERED: IOPAMIDOL-300 100 ML VIAL IVP ONE (19:39)
--- NOTE | 2017-04-07 20:02 | CT Preliminary Report ---
Exam: CT ABDOMEN/PELVIS W/ IMPRESSION: 1. Small rectal stool ball with mild presacral edema. 2. Colonic diverticulosis. 3. Otherwise, unremarkable exam. [facility] SITE ID: [id number]
--- NOTE | 2017-04-07 20:16 | CT Report ---
EXAM: CT ABDOMEN AND PELVIS EXAM DATE: 04/07/2017 07:39 PM. CLINICAL HISTORY: LLQ pain, constipation, acute urinary retention. On antibiotics for tooth abscess. COMPARISONS: None. TECHNIQUE: Routine helical CT imaging was performed through the abdomen and pelvis. IV contrast: 100 mL Isovue 300. Enteric contrast: Extremely small amount. Reconstructions: Coronal and sagittal. In accordance with CT protocol optimization, one or more of the following dose reduction techniques w ere utilized for this exam: automated exposure control, adjustment of mA and/or KV based on patient s ize, or use of iterative reconstructive technique. FINDINGS: Lung Bases: Unremarkable. Liver: Normal. No masses. Gallbladder/Bile Ducts: Unremarkable. Spleen: Normal. Pancreas: Normal. Adrenal Glands: Normal. Kidneys: Normal. No masses or hydronephrosis. Peritoneal Cavity/Bowel: Diverticula off the colon. Moderate amount of stool in the small caliber sig moid colon. No free fluid, free air or adenopathy. No masses or acute inflammatory process. The appen gia is well visualized and normal. Oral contrast extends to the mid ileum. Pelvic Organs: Moderate amount of stool in the 7.4 cm diameter rectum. Mild presacral edema. No recta l wall thickening. No adenopathy. Luis catheter within the small caliber urinary bladder. Vasculature: No aneurysms or other significant abnormality. Bones: No significant abnormality. Other: None. IMPRESSION: 1. Small rectal stool ball with mild presacral edema. 2. Colonic diverticulosis. 3. Otherwise, unremarkable exam. [facility] Referring Provider Line: [phone] SITE ID: [id number]
[2017-04-07 20:55] VITALS: BP 111/78
== END 2017-04-07 21:00 | disposition home or self-care (01) ==
LOC: ED 17:43
DX: N13.9 Obstructive and reflux uropathy, unspecified (principal); K92.1 Melena; K02.9 Dental caries, unspecified; K59.00 Constipation, unspecified; E11.9 Type 2 diabetes mellitus without complications; Z79.84 Long term (current) use of oral hypoglycemic drugs
CPT/HCPCS: 36415; 51702; 74177; 80053; 81003; 83690; 85025; 85610; 85730; 86850; 86900; 86901; 99284; A9270; Q9967; 81001; 87086

== ENCOUNTER 2017-06-23 17:55 | Outpatient (CLI) | payer MEDICAID | END 2017-06-23 17:56 | disposition critical access hospital (66) | LOC: EMS 17:55 | PROVIDERS: ATTEND Surgery | DX: R09.2 Respiratory arrest (principal) | CPT/HCPCS: A0425; A0427 ==

== ENCOUNTER 2017-06-23 18:13 | Emergency (ER) | payer MEDICAID ==
[2017-06-23] MEDS ORDERED: SODIUM CHLORIDE 0.9% 1,000 ML IV ONE ×2 (18:22)
--- NOTE | 2017-06-23 18:25 | ED Physician Documentation ---
History of Present Illness - Stated complaint Stated Complaint: AMS - Chief complaint Chief Complaint: Neuro - History obtained from History obtained from: Patient, Family, EMS - History of Present Illness Timing: Today Pain level max: 8 Pain level now: 8 Improved by: narcan Worsened by: nothing - Additonal information Additional information: Patient is a 46-year-old gentleman who presents to the emergency department after taking 30-60 mg of oxycodone, klonopin, as well as a Soma earlier today. He became unconscious after this and bystander CPR was performed. Unclear if he actually lost pulses or not. AED did not advise a shock. He was given Narcan by EMS and immediately awoke. Now complaining of chest soreness. States he did not intentionally overdose and is not suicidal. Review of Systems Ten Systems: 10 systems reviewed and negative Constitutional: denies: Fever, Chills Ears: denies: Ear pain Nose: denies: Rhinorrhea / runny nose, Congestion Throat: denies: Sore throat Cardiac: denies: Palpitations Respiratory: denies: Cough GI: denies: Abdominal Pain, Nausea, Vomiting, Diarrhea Skin: denies: Rash Musculoskeletal: denies: Neck pain, Back pain Neurologic: denies: Focal weakness, Numbness, Headache PD PAST MEDICAL HISTORY - Past Medical History Cardiovascular: None Respiratory: None Neuro: None Endocrine/Autoimmune: Type 2 diabetes GI: Other : None HEENT: None Psych: Anxiety, Other Musculoskeletal: Other Derm: None - Past Surgical History Past Surgical History: No - Present Medications Home Medications: Ambulatory Orders Medication Instructions Recorded Confirmed clonazePAM [Clonazepam] 1 mg PO QPM 01/18/16 05/07/16 Doxepin [SINEquan] 75 mg ORAL DAILY 05/07/16 05/07/16 clonazePAM [Klonopin] 1 mg PO BID #14 tablet 05/07/16 Meloxicam [Mobic] 15 mg PO DAILY PRN #20 tablet 06/23/17 Metformin HCl 500 mg PO DAILY 06/23/17 06/23/17 Omeprazole [PriLOSEC] 20 mg PO DAILY #30 capsule 06/23/17 Quetiapine Fumarate [Seroquel] 500 mg PO DAILY PM 06/23/17 06/23/17 glipiZIDE [Glipizide] 5 mg PO BID 06/23/17 06/23/17 oxyCODONE/ACET 5/325 [Percocet 5 1 - 2 tab PO PRN PRN 06/23/17 06/23/17 mg/325 mg] - Allergies Allergies/Adverse Reactions: Allergies Allergy/AdvReac Type Severity Reaction Status Date / Time No Known Drug Allergies Allergy Verified 06/23/17 18:24 - Social History Does the pt smoke?: No Smoking Status: Never smoker Does the pt drink ETOH?: Yes Does the pt have substance abuse?: No - Immunizations Immunizations are current?: No - POLST Patient has POLST: No PD ED PE NORMAL - Vitals Vital signs reviewed: Yes - General General: Alert and oriented X 3, No acute distress, Well developed/nourished - HEENT HEENT: Atraumatic, PERRL, Moist mucous membranes, Pharynx benign - Neck Neck: Supple, no meningeal sign, No bony TTP - Cardiac Cardiac: RRR, Strong equal pulses - Respiratory Respiratory: No respiratory distress, Clear bilaterally - Abdomen Abdomen: Soft, Non tender, Non distended - Back Back: No spinal TTP - Derm Derm: Warm and dry - Extremities Extremities: No tenderness to palpate, Normal ROM s pain - Neuro Neuro: Alert and oriented X 3, senior search marketing analyst 2-12 intact, No motor deficit, No sensory deficit, Normal speech Eye Opening: Spontaneous Motor: Obeys Commands Verbal: Oriented GCS Score: 15 - Psych Psych: Normal mood, Normal affect Results - Vitals Vitals: Vital Signs - 24 hr 06/23/17 06/23/17 06/23/17 22:20 22:24 22:27 Temperature 36.6 C Heart Rate 80 82 Respiratory 16 17 Rate Blood Pressure 123/82 H 123/82 H O2 Saturation 97 97 Oxygen O2 Source Room air Oxygen Flow Rate 2 - EKG (time done) 1826 Rate: Rate (enter#) (81) Rhythm: NSR [place]: LAD Intervals: Prolonged ID QRS: LVH Ischemia: Normal ST segments - Labs Labs: Laboratory Tests 06/23/17 06/23/17 06/23/17 18:35 18:35 18:35 WBC 7.9 RBC 4.62 L Hgb 12.4 L Hct 39.0 L MCV 84.4 MCH 26.8 L MCHC 31.8 L RDW 13.8 Plt Count 278 MPV 8.3 Neut # 6.5 Lymph # 0.8 L [place] # 0.4 Eos # 0.1 Baso # 0.0 Absolute Nucleated RBC 0.00 Nucleated RBC % 0.0 Sodium 135 Potassium 4.9 Chloride 104 Carbon Dioxide 27 Anion Gap 4.0 L BUN 11 Creatinine 1.0 Estimated GFR (MDRD) 80 L Glucose 301 H Calcium 8.4 L Total Bilirubin 0.3 AST 56 H ALT 51 Alkaline Phosphatase 67 Troponin I < 0.04 Total Protein 6.8 Albumin 3.8 Globulin 3.0 Albumin/Globulin Ratio 1.3 Lipase 24 Salicylates < 6.0 Urine Opiates Screen Ur Oxycodone Screen Urine Methadone Screen Ur Propoxyphene Screen Acetaminophen < 10 L Ur Barbiturates Screen Ur Tricyclics Screen Ur Phencyclidine Scrn Ur Amphetamine Screen U Methamphetamines Scrn U Benzodiazepines Scrn Urine Cocaine Screen U Cannabinoids Screen Ethyl Alcohol < 5.0 06/23/17 20:21 WBC RBC Hgb Hct MCV MCH MCHC RDW Plt Count MPV Neut # Lymph # [place] # Eos # Baso # Absolute Nucleated RBC Nucleated RBC % Sodium Potassium Chloride Carbon Dioxide Anion Gap BUN Creatinine Estimated GFR (MDRD) Glucose Calcium Total Bilirubin AST ALT Alkaline Phosphatase Troponin I Total Protein Albumin Globulin Albumin/Globulin Ratio Lipase Salicylates Urine Opiates Screen NEGATIVE Ur Oxycodone Screen NEGATIVE Urine Methadone Screen NEGATIVE Ur Propoxyphene Screen NEGATIVE Acetaminophen Ur Barbiturates Screen NEGATIVE Ur Tricyclics Screen POSITIVE H Ur Phencyclidine Scrn NEGATIVE Ur Amphetamine Screen NEGATIVE U Methamphetamines Scrn NEGATIVE U Benzodiazepines Scrn NEGATIVE Urine Cocaine Screen NEGATIVE U Cannabinoids Screen POSITIVE H Ethyl Alcohol - Rads (name of study) cxr Radiology: Prelim report reviewed, EMP read contemporaneously, See rad report ( normal) PD MEDICAL DECISION MAKING - ED course Complexity details: reviewed results, re-evaluated patient, considered differential, d/w patient, d/w family ED course: Patient is a 46-year-old gentleman who presents to the emergency department with an accidental overdose. Resolved with Narcan. Observed in the emergency department for several hours with no change in mental status. Ambulating with a steady gait. Speaking clearly and without any slurring of his speech. He is not suicidal or homicidal. is comfortable going home with him at this time. Chemical dependency resources as well as mental health resources were given to the patient and his . Patient and family counseled regarding signs and symptoms for which I believe and urgent re-evaluation would be necessary. Patient with good understanding of and agreement to plan and is comfortable going home at this time This document was made in part using voice recognition software. While efforts are made to proofread this document, sound alike and grammatical errors may occur. Departure - Departure Disposition: 01 Home, Self Care Clinical Impression: Accidental overdose Qualifiers: Encounter type: initial encounter Qualified Code(s): T50.901A - Poisoning by unspecified drugs, medicaments and biological substances, accidental ( unintentional), initial encounter Condition: Good Instructions: ED Overdose Accidental Follow-Up: Garry Guido DO [Primary Care Provider] - Within 3 Days Prescriptions: Meloxicam [Mobic] 15 mg PO DAILY PRN #20 tablet PRN Reason: pain Omeprazole [PriLOSEC] 20 mg PO DAILY #30 capsule Comments: Return if you worsen. You need to stay away from narcotics, benzodiazepines and muscle relaxants. Especially medications that are not prescribed to you. Follow-up with the chemical dependency resources you are given tonight. Also follow-up with your doctor as he may benefit from colonoscopy and endoscopy for your stomach issues recently. Discharge Date/Time: 06/23/17 22:43
[2017-06-23 18:46] LABS: BASOPHILS % (AUTO) 0.6 %; EOSINOPHILS # (AUTO) 0.1 10^3/uL (0.0-0.7); HGB - HEMOGLOBIN 12.4 g/dL (14.0-18.0); LYMPHOCYTES # (AUTO) 0.8 10^3/uL (1.5-3.5); LYMPHOCYTES % (AUTO) 10.5 %; MEAN CORPUSCULAR HEMOGLOBIN 26.8 pg (27.0-31.0); MEAN CORPUSCULAR HGB CONC 31.8 g/dL (32.0-36.0); MEAN CORPUSCULAR VOLUME 84.4 fL (80.0-94.0); MEAN PLATELET VOLUME 8.3 fL (7.4-11.4); MONOCYTES # (AUTO) 0.4 10^3/uL (0.0-1.0); MONOCYTES % (AUTO) 5.5 %; NEUTROPHILS # (AUTO) 6.5 10^3/uL (1.5-6.6); NEUTROPHILS % (AUTO) 82.4 %; PLT - PLATELET COUNT 278 10^3/uL (130-450); RED BLOOD COUNT 4.62 10^6/uL (4.70-6.10); RED CELL DISTRIBUTION WIDTH 13.8 % (12.0-15.0); WHITE BLOOD COUNT 7.9 x10^3/uL (4.8-10.8)
[2017-06-23 19:01] LABS: ALBUMIN 3.8 g/dL (3.2-5.5); ALBUMIN/GLOBULIN RATIO 1.3 (1.0-2.2); ALKALINE PHOSPHATASE 67 IU/L (42-121); ALT ALANINE AMINOTRANSFERASE 51 IU/L (10-60); AST ASPARTATE AMINOTRANSFERASE 56 IU/L (10-42); BILIRUBIN,TOTAL 0.3 mg/dL (0.2-1.0); BUN - BLOOD UREA NITROGEN 11 mg/dL (6-20); CALCIUM 8.4 mg/dL (8.5-10.3); CARBON DIOXIDE - CO2 27 mmol/L (21-32); CHLORIDE 104 mmol/L (101-111); GFR - MDRD 80 (>89); GLUCOSE 301 mg/dL (70-100); LIPASE 24 U/L (22-51); SALICYLATE < 6.0 mg/dL; SODIUM 135 mmol/L (135-145); TOTAL PROTEIN 6.8 g/dL (6.7-8.2)
[2017-06-23 19:03] LABS: ACETAMINOPHEN < 10 ug/mL (10-30)
[2017-06-23 20:33] LABS: MUDS CUTOFF CONCENTRATIONS CUTOFF CONC BELOW:
[2017-06-23] MEDS ORDERED: KETOROLAC 60 MG/2 ML VIAL IVP STA (20:44)
[2017-06-23 21:14] LABS: AMPHETAMINE SCREEN,URINE NEGATIVE (NEGATIVE); BENZODIAZEPINES SCREEN, URINE NEGATIVE (NEGATIVE); COCAINE SCREEN URINE NEGATIVE (NEGATIVE); METHADONE SCREEN, URINE NEGATIVE (NEGATIVE); METHAMPHETAMINES SCREEN, URINE NEGATIVE (NEGATIVE); OPIATE SCREEN, URINE NEGATIVE (NEGATIVE); OXYCODONE SCREEN, URINE NEGATIVE (NEGATIVE); PROPOXYPHENE SCREEN, URINE NEGATIVE (NEGATIVE); TRICYCLIC ANTIDEPRESSANT,URINE POSITIVE (NEGATIVE)
--- NOTE | 2017-06-23 21:31 | XRAY Report ---
EXAM: CHEST RADIOGRAPHY EXAM DATE: 06/23/2017 09:14 PM. CLINICAL HISTORY: Chest pain. COMPARISON: 07/06/2016. TECHNIQUE: 1 view. FINDINGS: Lungs/Pleura: Clear. No effusion or pneumothorax. Mediastinum: Within exam limitations, the cardiomediastinal contour is normal. Upper lobe vessels not distended. Other: None. IMPRESSION: Normal single view chest. [facility] Referring Provider Line: [phone] SITE ID: [id number]
[2017-06-23 22:21] VITALS: BP 123/82
== END 2017-06-23 22:43 | disposition home or self-care (01) ==
LOC: EDUNIT# → ED 18:13
DX: T40.2X1A Poisoning by other opioids, accidental (unintentional), initial encounter (principal); T42.4X1A Poisoning by benzodiazepines, accidental (unintentional), initial encounter; T42.8X1A Poisoning by antiparkinsonism drugs and other central muscle-tone depressants, accidental (unintentional), initial encounter; R94.31 Abnormal electrocardiogram [ECG] [EKG]; E11.9 Type 2 diabetes mellitus without complications; Z79.84 Long term (current) use of oral hypoglycemic drugs
CPT/HCPCS: 36415; 71045; 80053; 80306; 80307; 80320; 80329; 83690; 84484; 85025; 93005; 96361; 96374; 99284

== ENCOUNTER 2017-11-17 11:26 | Outpatient (CLI) | payer MEDICAID | END 2017-11-17 11:27 | disposition home or self-care (01) | LOC: SC 11:26 | PROVIDERS: ATTEND Internal Medicine Pulmonary Disease | DX: G47.30 Sleep apnea, unspecified (principal); G47.10 Hypersomnia, unspecified; R06.83 Snoring; G47.8 Other sleep disorders; G47.23 Circadian rhythm sleep disorder, irregular sleep wake type | CPT/HCPCS: 99203; 99212 ==

== ENCOUNTER 2018-05-19 08:14 | Outpatient (CLI) | payer MEDICAID | END 2018-05-19 08:15 | disposition home or self-care (01) | LOC: SC 08:14 | PROVIDERS: ATTEND Nurse Practitioner Family | DX: G47.33 Obstructive sleep apnea (adult) (pediatric) (principal) | CPT/HCPCS: 99212; 99214 ==

== ENCOUNTER 2018-07-27 12:46 | Outpatient (CLI) | payer MEDICAID | END 2018-07-27 12:47 | disposition home or self-care (01) | LOC: SC 12:46 | PROVIDERS: ATTEND Nurse Practitioner Family | DX: Z53.9 Procedure and treatment not carried out, unspecified reason (principal) ==

== ENCOUNTER 2018-07-29 08:26 | Outpatient (CLI) | payer MEDICAID ==
[2018-07-29 13:02] LABS: CALCIUM 9.3 mg/dL (8.5-10.3); CREATININE 1.1 mg/dL (0.6-1.2)
[2018-07-29 13:04] LABS: HB2 TOTAL 12.9 g/dL; HEMOGLOBIN A1C 1.55 g/dL; HEMOGLOBIN A1C % 13.1 % (4.6-6.2)
== END 2018-07-29 23:59 | disposition home or self-care (01) ==
LOC: LAB.N 08:26
PROVIDERS: ATTEND Physician Assistant Medical
DX: E11.8 Type 2 diabetes mellitus with unspecified complications (principal)
CPT/HCPCS: 36415; 80048; 83036

== ENCOUNTER 2018-12-25 07:00 | Outpatient (CLI) | payer MEDICAID ==
[2018-12-25 13:06] LABS: CREATININE,URINE 172.5 mg/dL; MICROALBUM/CREATININE RATIO,UR 2.9 ug/mg (<30.0); MICROALBUMIN,URINE 0.5 mg/dL (0-300.0)
[2018-12-25 13:37] LABS: BASOPHILS % (AUTO) 0.6 %; EOSINOPHILS # (AUTO) 0.2 10^3/uL (0.0-0.7); HGB - HEMOGLOBIN 11.8 g/dL (14.0-18.0); LYMPHOCYTES # (AUTO) 1.2 10^3/uL (1.5-3.5); LYMPHOCYTES % (AUTO) 22.6 %; MEAN CORPUSCULAR HEMOGLOBIN 26.5 pg (27.0-31.0); MEAN CORPUSCULAR HGB CONC 29.3 g/dL (32.0-36.0); MEAN CORPUSCULAR VOLUME 90.4 fL (80.0-94.0); MEAN PLATELET VOLUME 10.5 fL (7.4-11.4); MONOCYTES # (AUTO) 0.4 10^3/uL (0.0-1.0); MONOCYTES % (AUTO) 8.2 %; NEUTROPHILS # (AUTO) 3.5 10^3/uL (1.5-6.6); NEUTROPHILS % (AUTO) 65.4 %; PLT - PLATELET COUNT 322 10^3/uL (130-450); RED BLOOD COUNT 4.46 10^6/uL (4.70-6.10); WHITE BLOOD COUNT 5.4 x10^3/uL (4.8-10.8)
[2018-12-25 13:44] LABS: HB2 TOTAL 12.3 g/dL; HEMOGLOBIN A1C 0.92 g/dL
[2018-12-25 14:04] LABS: ALBUMIN 4.1 g/dL (3.2-5.5); ALBUMIN/GLOBULIN RATIO 1.1 (1.0-2.2); ALKALINE PHOSPHATASE 76 IU/L (42-121); ALT ALANINE AMINOTRANSFERASE 30 IU/L (10-60); AST ASPARTATE AMINOTRANSFERASE 24 IU/L (10-42); BILIRUBIN,TOTAL 0.5 mg/dL (0.2-1.0); BUN - BLOOD UREA NITROGEN 19 mg/dL (6-20); CALCIUM 9.1 mg/dL (8.5-10.3); CARBON DIOXIDE - CO2 26 mmol/L (21-32); CHLORIDE 104 mmol/L (101-111); CHOLESTEROL 154 mg/dL; CREATININE 1.1 mg/dL (0.6-1.2); GFR - MDRD 71 (>89); GLUCOSE 183 mg/dL (70-100); HDL CHOLESTEROL 52 mg/dL; LDL CHOLESTEROL,CALCULATED 81 mg/dL; LDL/HDL RATIO 1.6 (<3.6); SODIUM 137 mmol/L (135-145); TOTAL PROTEIN 7.7 g/dL (6.7-8.2); VLDL CHOLESTEROL 21 mg/dL
== END 2018-12-25 23:59 | disposition home or self-care (01) ==
LOC: LAB.WCP 07:00
PROVIDERS: ATTEND Family Medicine
DX: E11.9 Type 2 diabetes mellitus without complications (principal); E78.5 Hyperlipidemia, unspecified
CPT/HCPCS: 36415; 80053; 80061; 82043; 82570; 83036; 83721; 84443; 85025

== ENCOUNTER 2019-02-24 08:00 | Outpatient (CLI) | payer MEDICAID | END 2019-02-24 23:59 | disposition home or self-care (01) | LOC: LAB.R 08:00 | PROVIDERS: ATTEND Family Medicine | DX: D64.9 Anemia, unspecified (principal) | CPT/HCPCS: 82274 ==

== ENCOUNTER 2019-04-14 14:34 | Outpatient (CLI) | payer MEDICAID ==
[2019-04-14 18:30] LABS: ABSOLUTE RETICS # AUTO 0.046 10^6/uL (0.020-0.110); BASOPHILS # (AUTO) 0.1 10^3/uL (0.0-0.1); BASOPHILS % (AUTO) 0.9 %; EOSINOPHILS # (AUTO) 0.2 10^3/uL (0.0-0.7); EOSINOPHILS % (AUTO) 3.4 %; LYMPHOCYTES # (AUTO) 1.3 10^3/uL (1.5-3.5); LYMPHOCYTES % (AUTO) 22.7 %; MEAN CORPUSCULAR VOLUME 87.2 fL (80.0-94.0); MEAN PLATELET VOLUME 10.5 fL (7.4-11.4); MONOCYTES # (AUTO) 0.4 10^3/uL (0.0-1.0); MONOCYTES % (AUTO) 6.3 %; NEUTROPHILS # (AUTO) 3.7 10^3/uL (1.5-6.6); NEUTROPHILS % (AUTO) 66.3 %; PLT - PLATELET COUNT 299 10^3/uL (130-450); RED BLOOD COUNT 4.44 10^6/uL (4.70-6.10); RED CELL DISTRIBUTION WIDTH 14.1 % (12.0-15.0); WHITE BLOOD COUNT 5.5 x10^3/uL (4.8-10.8)
[2019-04-14 18:41] LABS: HB2 TOTAL 12.5 g/dL; HEMOGLOBIN A1C 1.02 g/dL; HEMOGLOBIN A1C % 9.6 % (4.6-6.2)
[2019-04-14 18:49] LABS: % IRON SATURATION 20 % (20-50); IRON 64 ug/dL (45-182); TOTAL IRON BINDING CAPACITY 326 ug/dL (250-450); TRANSFERRIN 233 mg/dL (180-329)
[2019-04-14 18:58] LABS: FERRITIN 74.8 ng/mL (23.9-336.2)
[2019-04-14 19:02] LABS: FOLATE 13.74 ng/mL (5.90 - >24.8)
== END 2019-04-14 23:59 | disposition home or self-care (01) ==
LOC: LAB.N 14:34
PROVIDERS: ATTEND Family Medicine
DX: D64.9 Anemia, unspecified (principal); E11.9 Type 2 diabetes mellitus without complications
CPT/HCPCS: 36415; 82607; 82728; 82746; 83036; 83540; 84466; 85025; 85045

== ENCOUNTER 2019-05-09 11:26 | Outpatient (CLI) | payer MEDICAID ==
--- NOTE | 2019-05-10 03:45 | Ultrasound Report ---
Reason: GROIN PAIN,RIGHT Procedure Date: 05/09/2019 Accession Number: [id number] / [id number] Procedure: US - Testicle CPT Code: Final Report FULL RESULT: EXAM: SCROTAL ULTRASOUND EXAM DATE: 05/09/2019 12:42 PM CLINICAL HISTORY: Groin pain, right. Right groin pain for 3 years. Intermittent. Worsening after a long day of work. COMPARISON: TESTICLE 12/17/2016 5:51 PM, ABDOMEN/PELVIS W/ 04/07/2017 7:23 PM. TECHNIQUE: Real-time scanning was performed with static images obtained. Color-flow images were utilized. FINDINGS: Right: Testis: 4.8 x 2.2 x 2.6 cm. Normal size and echotexture. No mass, calcification, or abnormal blood flow. Epididymis: 4.4 x 1.0 x 0.6 cm. No suspicious lesion. Tiny epididymal cysts. Hydrocele: Small. Varicocele: None. Left: Testis: 4.6 x 2.2 x 2.6 cm. Normal size and echotexture. No mass, calcification, or abnormal blood flow. Epididymis: 3.0 x 1.1 x 0.3 cm. No suspicious lesion. Tiny epididymal cysts. Hydrocele: Small. Varicocele: None. Other: No inguinal hernia demonstrated at rest or during Valsalva. IMPRESSION: No significant scrotal abnormality. No evidence of an inguinal hernia. [facility]
== END 2019-05-09 11:27 | disposition home or self-care (01) ==
LOC: DI 11:26
PROVIDERS: ATTEND Physician Assistant
DX: R10.31 Right lower quadrant pain (principal)
CPT/HCPCS: 76870

== ENCOUNTER 2019-12-02 08:00 | Outpatient (CLI) | payer MEDICAID ==
[2019-12-02 19:02] LABS: HGB - HEMOGLOBIN 10.5 g/dL (14.0-18.0); MEAN CORPUSCULAR HEMOGLOBIN 26.4 pg (27.0-31.0); MEAN CORPUSCULAR HGB CONC 29.7 g/dL (32.0-36.0); MEAN CORPUSCULAR VOLUME 88.7 fL (80.0-94.0); MEAN PLATELET VOLUME 11.5 fL (7.4-11.4); RED BLOOD COUNT 3.98 10^6/uL (4.70-6.10); RED CELL DISTRIBUTION WIDTH 14.4 % (12.0-15.0); WHITE BLOOD COUNT 5.7 x10^3/uL (4.8-10.8)
[2019-12-02 19:03] LABS: CALCIUM 9.1 mg/dL (8.5-10.3); CREATININE 1.4 mg/dL (0.6-1.2)
[2019-12-02 19:21] LABS: CREATININE,URINE 68.4 mg/dL
[2019-12-02 19:24] LABS: HEMOGLOBIN A1c% 12.1 % (4.27-6.07); MICROALBUMIN,URINE < 0.2 mg/dL (0-300.0)
== END 2019-12-02 23:59 | disposition home or self-care (01) ==
LOC: LAB.WCP 08:00
PROVIDERS: ATTEND Family Medicine
DX: E11.65 Type 2 diabetes mellitus with hyperglycemia (principal); R06.09 Other forms of dyspnea; D64.9 Anemia, unspecified
CPT/HCPCS: 36415; 80048; 82043; 82570; 83036; 83880; 85025; 85027

== ENCOUNTER 2019-12-17 13:23 | Emergency (ER) | payer MEDICAID ==
[2019-12-17 13:49] LABS: BILIRUBIN,URINE NEGATIVE (NEGATIVE); CLARITY,URINE CLEAR (CLEAR); GLUCOSE, URINE (UA) 100 mg/dL (NEGATIVE); KETONES,URINE (UA) NEGATIVE (NEGATIVE); LEUKOCYTE ESTERASE, URINE NEGATIVE (NEGATIVE); NITRITE,URINE NEGATIVE (NEGATIVE); OCCULT BLOOD,URINE NEGATIVE (NEGATIVE); PH,URINE 6.5 PH (5.0-7.5); PROTEIN,URINE NEGATIVE (NEGATIVE); UROBILINOGEN,URINE 1 (NORMAL) E.U./dL (NORMAL)
--- NOTE | 2019-12-17 14:10 | ED Physician Documentation ---
PD HPI MALE - Stated complaint Stated Complaint: MALE - Chief complaint Chief Complaint: General - History obtained from History obtained from: Patient - History of Present Illness Timing - onset: How many days ago (2-3) Timing - details: Gradual onset (over a few days) Associated symptoms: Scrotal swelling, Other (cramping pains in testicles, more on right.). No: Urinary frequency, Unable to urinate PD HPI MALE CONTRIB FACTORS: No: Exposed to STD Similar symptoms before: Has not had sx before (he has had bilateral leg edema for the past several weeks and seen by PCP with Rx of Lasix 10 mg ? daily. He says leg swelling is decreasing some but now with scrotal edema as well. No dyspnea nor orthopnea.) Recently seen: Clinic Review of Systems Constitutional: denies: Fever, Chills Nose: denies: Rhinorrhea / runny nose, Congestion Throat: denies: Sore throat Respiratory: denies: Cough GI: denies: Abdominal Pain, Nausea, Vomiting, Diarrhea : reports: Testicular pain Skin: reports: Rash (mild red rash right inguinal crease. No rash on scrotum.) Musculoskeletal: reports: Extremity swelling (bilateral legs for several weeks.) Neurologic: denies: Focal weakness, Numbness Endocrine: denies: Weight loss, Weight gain PD PAST MEDICAL HISTORY - Past Medical History Cardiovascular: None Respiratory: None Endocrine/Autoimmune: Type 2 diabetes GI: Other : None, Renal insuffiency (had some elevation creatinine few weeks ago and was told his edema is from kidney problem. On diuretic.) HEENT: None Psych: Anxiety, Other Musculoskeletal: Other Derm: None - Past Surgical History Past Surgical History: No - Present Medications Home Medications: Ambulatory Orders Medication Instructions Recorded Confirmed clonazePAM [Clonazepam] 1 mg PO QPM 01/18/16 05/07/16 Doxepin [SINEquan] 75 mg ORAL DAILY 05/07/16 05/07/16 clonazePAM [Klonopin] 1 mg PO BID #14 tablet 05/07/16 Meloxicam [Mobic] 15 mg PO DAILY PRN #20 tablet 06/23/17 Metformin HCl 500 mg PO DAILY 06/23/17 06/23/17 Omeprazole [PriLOSEC] 20 mg PO DAILY #30 capsule 06/23/17 Quetiapine Fumarate [Seroquel] 500 mg PO DAILY PM 06/23/17 06/23/17 glipiZIDE [Glipizide] 5 mg PO BID 06/23/17 06/23/17 oxyCODONE/ACET 5/325 [Percocet 5 1 - 2 tab PO PRN PRN 06/23/17 06/23/17 mg/325 mg] Clotrimazole/Betamethasone Crm 1 applic TOP TID 5 Days #15 g 12/17/19 [Lotrisone Cream] Furosemide [Lasix] 40 mg PO DAILY #20 tablet 12/17/19 - Allergies Allergies/Adverse Reactions: Allergies Allergy/AdvReac Type Severity Reaction Status Date / Time No Known Drug Allergies Allergy Verified 06/23/17 18:24 - Social History Does the pt smoke?: No Smoking Status: Never smoker Does the pt drink ETOH?: Yes Does the pt have substance abuse?: No - Immunizations Immunizations are current?: No - POLST Patient has POLST: No PD ED PE NORMAL - Vitals Vital signs reviewed: Yes - General General: Alert and oriented X 3, No acute distress, Well developed/nourished - HEENT HEENT: Moist mucous membranes, Pharynx benign - Neck Neck: Supple, no meningeal sign - Cardiac Cardiac: RRR, No murmur - Respiratory Respiratory: Clear bilaterally (no crackles) - Abdomen Abdomen: Normal bowel sounds, Soft, Non distended, No organomegaly - Male Male : Other (Generalized scrotal edema with minimal redness and no tenderness per se of the scrotum itself. There is some tenderness in the testicles but they are difficult to palpate given the edema. The base of the scrotum is without any rash. Right inguinal area has superficial red speckled rash c/w tinea) - Rectal Rectal: Deferred - Back Back: No CVA TTP - Derm Derm: Normal color, Warm and dry - Extremities Extremities: No deformity, No tenderness to palpate, No calf tenderness / cord, Other (2+ edema in both lower legs up to knees. No redness nor sores. ) Results - Vitals Vitals: Vital Signs - 24 hr 12/17/19 13:28 Temperature 36.7 C Heart Rate 64 Respiratory 20 Rate Blood Pressure 156/57 H O2 Saturation 96 Oxygen O2 Source Room air - Labs Labs: Laboratory Tests 10/12/17/19 12/17/19 13:35 15:25 15:25 WBC 5.9 RBC 3.84 L Hgb 10.3 L Hct 34.2 L MCV 89.1 MCH 26.8 L MCHC 30.1 L RDW 13.6 Plt Count 241 MPV 9.9 Neut # (Auto) 3.9 Lymph # (Auto) 1.2 L Saline # (Auto) 0.5 Eos # (Auto) 0.3 Baso # (Auto) 0.1 Absolute Nucleated RBC 0.00 Nucleated RBC % 0.0 Sodium 136 Potassium 4.3 Chloride 99 L Carbon Dioxide 29 Anion Gap 8.0 BUN 16 Creatinine 1.0 Estimated GFR (MDRD) 79 L Glucose 245 H Calcium 8.8 Magnesium 1.9 Total Bilirubin 0.3 AST 21 ALT 36 Alkaline Phosphatase 85 Total Protein 7.4 Albumin 3.7 Globulin 3.7 Albumin/Globulin Ratio 1.0 Lipase 26 Urine Color YELLOW Urine Clarity CLEAR Urine pH 6.5 Ur Specific [place] 1.015 Urine Protein NEGATIVE Urine Glucose (UA) 100 H Urine Ketones NEGATIVE Urine Occult Blood NEGATIVE Urine Nitrite NEGATIVE Urine Bilirubin NEGATIVE Urine Urobilinogen 1 (NORMAL) Ur Leukocyte Esterase NEGATIVE Ur Microscopic Review NOT INDICATED Urine Culture Comments NOT INDICATED - Rads (name of study) testicle U/S Radiology: Prelim report reviewed (hydroceles similar to prior. Normal flow in testicles and normal appearance. ), See rad report PD MEDICAL DECISION MAKING - ED course Complexity details: considered differential (presume scrotal edema similar to leg edema. Can check labs. Will get u/s to ensure no testicular problem as well. Tinea cruris right inguinal, but scrotum does not have infectious appearance. ), d/w patient Departure - Departure Disposition: 01 Home, Self Care Clinical Impression: Scrotal edema, Tinea cruris, Leg edema Condition: Stable Record reviewed to determine appropriate education?: Yes Instructions: ED Edema Legs Bilateral Follow-Up: MAGGIE SEQUEIRA MD [Primary Care Provider] - Prescriptions: Furosemide [Lasix] 40 mg PO DAILY #20 tablet Clotrimazole/Betamethasone Crm [Lotrisone Cream] 1 applic TOP TID 5 Days #15 g Comments: Your scrotal edema is essentially the same process as the leg edema. Your kidney function electrolytes are good on your blood test so I would say you can increase to 40 mg of Lasix (take 20 mg in the morning and another 20 mg late morning or lunchtime). Continue with the potassium supplement. Use some scrotal support such as loose fitting briefs. This will help some of the discomfort of the swollen scrotum. Follow-up with your primary care next week as planned. You do have what appears to be a yeast infection and the inguinal crease, you can use the antifungal/steroid cream there 2-3 times a day until that is improved. Return if worsening symptoms overall. He is some mild anti-inflammatories such as Aleve twice daily and add Tylenol every 4-6 hours if needed for pain.
[2019-12-17] MEDS ORDERED: ACETAMINOPHEN 325 MG TABLET PO STA (15:06)
[2019-12-17] MEDS ORDERED: KETOROLAC 30 MG/ML VIAL IM STA (15:06)
[2019-12-17] MEDS ORDERED: FUROSEMIDE 20 MG TABLET PO STA (15:07)
[2019-12-17 15:34] LABS: BASOPHILS # (AUTO) 0.1 10^3/uL (0.0-0.1); BASOPHILS % (AUTO) 0.8 %; EOSINOPHILS # (AUTO) 0.3 10^3/uL (0.0-0.7); EOSINOPHILS % (AUTO) 4.2 %; HGB - HEMOGLOBIN 10.3 g/dL (14.0-18.0); LYMPHOCYTES # (AUTO) 1.2 10^3/uL (1.5-3.5); LYMPHOCYTES % (AUTO) 19.6 %; MEAN CORPUSCULAR HEMOGLOBIN 26.8 pg (27.0-31.0); MEAN CORPUSCULAR HGB CONC 30.1 g/dL (32.0-36.0); MEAN CORPUSCULAR VOLUME 89.1 fL (80.0-94.0); MEAN PLATELET VOLUME 9.9 fL (7.4-11.4); MONOCYTES # (AUTO) 0.5 10^3/uL (0.0-1.0); MONOCYTES % (AUTO) 8.6 %; NEUTROPHILS # (AUTO) 3.9 10^3/uL (1.5-6.6); NEUTROPHILS % (AUTO) 66.5 %; PLT - PLATELET COUNT 241 10^3/uL (130-450); RED BLOOD COUNT 3.84 10^6/uL (4.70-6.10); RED CELL DISTRIBUTION WIDTH 13.6 % (12.0-15.0); WHITE BLOOD COUNT 5.9 x10^3/uL (4.8-10.8)
[2019-12-17 15:44] LABS: ALBUMIN 3.7 g/dL (3.2-5.5); BILIRUBIN,TOTAL 0.3 mg/dL (0.2-1.0); CALCIUM 8.8 mg/dL (8.5-10.3); MAGNESIUM 1.9 mg/dL (1.7-2.8); TOTAL PROTEIN 7.4 g/dL (6.7-8.2)
--- NOTE | 2019-12-17 16:16 | Ultrasound Report ---
PROCEDURE: Testicle w/Doppler INDICATIONS: Scrotal edema; eval testicles TECHNIQUE: Real-time scanning was performed of the scrotum and testicles, with image documentation. Color and p ulse Doppler interrogation was performed of both testicles. COMPARISON: 05/09/2019 scrotal and testicular ultrasound FINDINGS: There is marked subcutaneous edema of the scrotal skin, presumably related to the same process that i s causing the patient's lower extremity edema. The skin measures up to 1.5 cm in thickness. There are moderate bilateral hydroceles. Small bilateral epididymal head cysts are present, measuring up to 6 mm on the right and 5 mm on the left. Both testicles are normal in size and appearance with no evidence of testicular mass. Both testicles demonstrate normal blood flow. IMPRESSION: Moderate to severe scrotal edema with bilateral hydroceles. No testicular mass. Reviewed by: Kulwinder Serna MD on 12/17/2019 4:15 PM PDT Approved by: Kulwinder Serna MD on 12/17/2019 4:15 PM PDT Station ID: [id number]
[2019-12-17 16:42] VITALS: BP 131/59
== END 2019-12-17 16:52 | disposition home or self-care (01) ==
LOC: ED 13:23
DX: N50.89 Other specified disorders of the male genital organs (principal); B35.6 Tinea cruris; R60.0 Localized edema; E11.29 Type 2 diabetes mellitus with other diabetic kidney complication; Z79.84 Long term (current) use of oral hypoglycemic drugs
CPT/HCPCS: 36415; 76870; 80053; 81003; 83690; 83735; 85025; 93975; 96372; 99284; A9270; 81001; 87086

== ENCOUNTER 2019-12-23 08:00 | Outpatient (CLI) | payer MEDICAID ==
[2019-12-23 18:31] LABS: BASOPHILS # (AUTO) 0.1 10^3/uL (0.0-0.1); BASOPHILS % (AUTO) 0.8 %; EOSINOPHILS # (AUTO) 0.5 10^3/uL (0.0-0.7); EOSINOPHILS % (AUTO) 6.3 %; HGB - HEMOGLOBIN 10.6 g/dL (14.0-18.0); LYMPHOCYTES # (AUTO) 1.2 10^3/uL (1.5-3.5); LYMPHOCYTES % (AUTO) 16.5 %; MEAN CORPUSCULAR HEMOGLOBIN 26.2 pg (27.0-31.0); MEAN CORPUSCULAR HGB CONC 29.7 g/dL (32.0-36.0); MEAN CORPUSCULAR VOLUME 88.4 fL (80.0-94.0); MEAN PLATELET VOLUME 10.8 fL (7.4-11.4); MONOCYTES # (AUTO) 0.7 10^3/uL (0.0-1.0); MONOCYTES % (AUTO) 9.4 %; NEUTROPHILS # (AUTO) 4.9 10^3/uL (1.5-6.6); NEUTROPHILS % (AUTO) 66.9 %; PLT - PLATELET COUNT 291 10^3/uL (130-450); RED BLOOD COUNT 4.04 10^6/uL (4.70-6.10); RED CELL DISTRIBUTION WIDTH 13.7 % (12.0-15.0); WHITE BLOOD COUNT 7.3 x10^3/uL (4.8-10.8)
[2019-12-23 18:48] LABS: ALBUMIN 4.1 g/dL (3.2-5.5); BILIRUBIN,TOTAL 0.6 mg/dL (0.2-1.0); CALCIUM 9.4 mg/dL (8.5-10.3); CREATININE 1.3 mg/dL (0.6-1.2); TOTAL PROTEIN 8.1 g/dL (6.7-8.2)
== END 2019-12-23 23:59 | disposition home or self-care (01) ==
LOC: LAB.WCP 08:00
PROVIDERS: ATTEND Family Medicine
DX: N18.30 Chronic kidney disease, stage 3 unspecified (principal)
CPT/HCPCS: 36415; 80053; 85025

== ENCOUNTER 2019-12-27 08:00 | Outpatient (CLI) | payer MEDICAID ==
[2019-12-27 17:58] LABS: CALCIUM 9.3 mg/dL (8.5-10.3); CREATININE 1.9 mg/dL (0.6-1.2)
== END 2019-12-27 23:59 | disposition home or self-care (01) ==
LOC: LAB.WCP 08:00
PROVIDERS: ATTEND Family Medicine
DX: I12.9 Hypertensive chronic kidney disease with stage 1 through stage 4 chronic kidney disease, or unspecified chronic kidney disease (principal); N18.30 Chronic kidney disease, stage 3 unspecified; R60.0 Localized edema
CPT/HCPCS: 36415; 80048

== ENCOUNTER 2020-01-27 08:00 | Outpatient (CLI) | payer MEDICAID ==
[2020-01-27 18:39] LABS: CALCIUM 9.6 mg/dL (8.5-10.3); CREATININE 1.3 mg/dL (0.6-1.2)
[2020-01-27 21:06] LABS: HEMOGLOBIN A1c% 13.5 % (4.27-6.07)
== END 2020-01-27 23:59 | disposition home or self-care (01) ==
LOC: LAB.WCP 08:00
PROVIDERS: ATTEND Internal Medicine
DX: E11.22 Type 2 diabetes mellitus with diabetic chronic kidney disease (principal); N18.30 Chronic kidney disease, stage 3 unspecified
CPT/HCPCS: 36415; 80048; 83036

== ENCOUNTER 2020-02-29 08:00 | Outpatient (CLI) | payer MEDICAID ==
[2020-02-29 19:02] LABS: BASOPHILS % (AUTO) 0.2 %; EOSINOPHILS # (AUTO) 0.5 10^3/uL (0.0-0.7); EOSINOPHILS % (AUTO) 5.8 %; HGB - HEMOGLOBIN 8.3 g/dL (14.0-18.0); LYMPHOCYTES # (AUTO) 1.3 10^3/uL (1.5-3.5); LYMPHOCYTES % (AUTO) 15.6 %; MEAN CORPUSCULAR HEMOGLOBIN 26.1 pg (27.0-31.0); MEAN CORPUSCULAR HGB CONC 29.4 g/dL (32.0-36.0); MEAN CORPUSCULAR VOLUME 88.7 fL (80.0-94.0); MEAN PLATELET VOLUME 9.3 fL (7.4-11.4); MONOCYTES # (AUTO) 0.8 10^3/uL (0.0-1.0); MONOCYTES % (AUTO) 9.8 %; NEUTROPHILS # (AUTO) 5.5 10^3/uL (1.5-6.6); NEUTROPHILS % (AUTO) 68.2 %; PLT - PLATELET COUNT 328 10^3/uL (130-450); RED BLOOD COUNT 3.18 10^6/uL (4.70-6.10); RED CELL DISTRIBUTION WIDTH 14.7 % (12.0-15.0); WHITE BLOOD COUNT 8.1 x10^3/uL (4.8-10.8)
[2020-02-29 19:21] LABS: CALCIUM 8.8 mg/dL (8.5-10.3); CREATININE 1.1 mg/dL (0.6-1.2); MAGNESIUM 2.2 mg/dL (1.7-2.8)
== END 2020-02-29 23:59 | disposition home or self-care (01) ==
LOC: LAB.WCP 08:00
PROVIDERS: ATTEND Family Medicine
DX: N17.0 Acute kidney failure with tubular necrosis (principal)
CPT/HCPCS: 36415; 80048; 83735; 84100; 85025

== ENCOUNTER 2020-04-19 07:51 | Outpatient (CLI) | payer MEDICAID | END 2020-04-19 07:52 | disposition home or self-care (01) | LOC: DI 07:51 | PROVIDERS: ATTEND Internal Medicine | DX: I12.9 Hypertensive chronic kidney disease with stage 1 through stage 4 chronic kidney disease, or unspecified chronic kidney disease (principal); N18.30 Chronic kidney disease, stage 3 unspecified | CPT/HCPCS: 93306 ==

== ENCOUNTER 2020-05-18 14:55 | Emergency (ER) | payer MEDICAID ==
[2020-05-18 15:38] LABS: BASOPHILS # (AUTO) 0.1 10^3/uL (0.0-0.1); BASOPHILS % (AUTO) 0.9 %; EOSINOPHILS # (AUTO) 0.4 10^3/uL (0.0-0.7); EOSINOPHILS % (AUTO) 7.5 %; HCT - HEMATOCRIT 29.4 % (42.0-52.0); HGB - HEMOGLOBIN 8.6 g/dL (14.0-18.0); LYMPHOCYTES # (AUTO) 1.3 10^3/uL (1.5-3.5); LYMPHOCYTES % (AUTO) 21.9 %; MEAN CORPUSCULAR HEMOGLOBIN 25.1 pg (27.0-31.0); MEAN CORPUSCULAR HGB CONC 29.3 g/dL (32.0-36.0); MEAN CORPUSCULAR VOLUME 85.7 fL (80.0-94.0); MEAN PLATELET VOLUME 9.2 fL (7.4-11.4); MONOCYTES # (AUTO) 0.5 10^3/uL (0.0-1.0); MONOCYTES % (AUTO) 9.3 %; NEUTROPHILS # (AUTO) 3.4 10^3/uL (1.5-6.6); PLT - PLATELET COUNT 284 10^3/uL (130-450); RED BLOOD COUNT 3.43 10^6/uL (4.70-6.10); RED CELL DISTRIBUTION WIDTH 14.9 % (12.0-15.0); WHITE BLOOD COUNT 5.7 x10^3/uL (4.8-10.8)
--- NOTE | 2020-05-18 15:38 | ED Physician Documentation ---
History of Present Illness - Stated complaint Stated Complaint: WEAKNESS/FATIGUE - Chief complaint Chief Complaint: Neuro - Additonal information Additional information: 49-year-old male who has a history of diabetes presents to the emergency department because for a few weeks he reports that he has been feeling foggy and drained. He intermittently feels twitching in his lips or sometimes both his arms will jerk suddenly. He does not have any lapses in consciousness. Patient states that his blood sugars have been in the 400s at home though our fingerstick glucose here is 223. For a long time he has been dealing with chronic bilateral lower extremity skin changes. He last had antibiotics 2 months ago. Since stopping antibiotics he has been applying Neosporin antibiotic ointment to the skin and finds that the wounds are healing nicely. He has not had any fevers, chest pain, nausea vomiting diarrhea. He does endorse some mild dysuria. He does not feel lightheaded or dizzy. No syncope or near syncope. Denies seizure activity. No focal weakness in the arms or legs. Patient does state that he was seen by cardiology late March and had an echocardiogram that showed mild left ventricular hypertrophy with an EF of 65%. This echo was done due to persistent lower extremity swelling. Patient denies that he is having any shortness of air or that his legs are more swollen than normal. He denies fevers calf pain tenderness. No hemoptysis. Review of Systems Constitutional: reports: Fatigue. denies: Fever, Chills Eyes: denies: Loss of vision, Decreased vision Nose: reports: Reviewed and negative Throat: reports: Reviewed and negative Cardiac: reports: Pedal edema. denies: Chest pain / pressure, Palpitations, Calf pain Respiratory: denies: Dyspnea, Cough, Hemoptysis, Wheezing GI: denies: Abdominal Pain, Nausea, Vomiting, Diarrhea, Hematemesis, Bloody / black stool : reports: Dysuria. denies: Frequency, Hesitancy Skin: reports: Lesions (Chronic appearing scaling lesions bilateral lower extremities with swelling. Legs are generally erythematous with yellow honey crusting sores. Mild tenderness elicited with palpation. 2+ DP pulse.). denies: Rash Musculoskeletal: denies: Neck pain Neurologic: denies: Generalized weakness, Syncope, Seizure, Confused PD PAST MEDICAL HISTORY - Past Medical History Cardiovascular: None Respiratory: None Endocrine/Autoimmune: Type 2 diabetes GI: Other : None, Renal insuffiency (had some elevation creatinine few weeks ago and was told his edema is from kidney problem. On diuretic.) HEENT: None Psych: Anxiety, Other Musculoskeletal: Other Derm: None - Past Surgical History Past Surgical History: No - Present Medications Home Medications: Ambulatory Orders Medication Instructions Recorded Confirmed Buprenorphine HCl/Naloxone HCl 1 film TOP 05/18/20 [Suboxone 8 mg-2 mg Sl Film] Furosemide [Lasix] 1 tab PO DAILY 05/18/20 05/18/20 Insulin Glargine [Lantus Solostar] 05/18/20 Insulin Lispro [Humalog] 05/18/20 Pravastatin Sodium [Pravachol] 1 tab PO DAILY 05/18/20 05/18/20 Pregabalin [Lyrica] 1 tab PO DAILY 05/18/20 05/18/20 Quetiapine Fumarate [Seroquel Xr] 1 tab PO DAILY 05/18/20 05/18/20 lisinopriL [Lisinopril] 1 tab PO DAILY 05/18/20 05/18/20 - Allergies Allergies/Adverse Reactions: Allergies Allergy/AdvReac Type Severity Reaction Status Date / Time Sulfa (Sulfonamide Allergy Unknown Verified 05/18/20 15:10 Antibiotics) - Social History Does the pt smoke?: No Smoking Status: Never smoker Does the pt drink ETOH?: Yes Does the pt have substance abuse?: No - Immunizations Immunizations are current?: No - POLST Patient has POLST: No PD ED PE EXPANDED - General General: Alert, No acute distress, Well developed/nourished - Eyes Eyes: PERRL, Normal accommodation - Neck Neck: Supple w/out meningeal sx. No: Adenopathy - Cardiac Cardiac: Regular Rate, Regular Rhythm, Radial strong equal, Pedal strong equal, Cap refill < 2 sec. No: Murmur Present - Respiratory Respiratory: Clear to ausultation christoph. No: Distress, Labored - Abdomen Abdomen: Normal Bowel sounds. No: Tender to palpation - Derm Derm: Normal color, Warm and dry - Neuro Neuro: Alert and Oriented X 3, Normal motor, Normal Speech, CNII-XII intact, Cerebellar nl, Normal gait, Normal finger nose, Normal speech. No: Confused, Disoriented, Lethargic - GCS Eye Opening: Spontaneous Motor: Obeys Commands Verbal: Oriented Total: 15 Results - Vitals Vitals: Vital Signs - 24 hr 05/18/20 05/18/20 05/18/20 15:03 15:09 17:09 Temperature 36.5 C Heart Rate 77 74 80 Respiratory 14 18 16 Rate Blood Pressure 134/79 H O2 Saturation 98 97 99 05/18/20 05/18/20 18:00 20:00 Temperature 36.5 C Heart Rate 79 72 Respiratory 16 16 Rate Blood Pressure 115/65 118/62 O2 Saturation 98 99 Oxygen O2 Source Room air - EKG (time done) 1737 Rate: Rate (enter#) (67) Rhythm: NSR [place]: Normal Intervals: Prolonged OH, RBBB (LAFB predominate) Ischemia: Non specific changes Compare to prior EKG: Unchanged from prior EKG Computer interpretation: Agree with computer - Labs Labs: Laboratory Tests 05/18/20 05/18/20 05/18/20 15:21 15:33 15:33 WBC 5.7 RBC 3.43 L Hgb 8.6 L Hct 29.4 L MCV 85.7 MCH 25.1 L MCHC 29.3 L RDW 14.9 Plt Count 284 MPV 9.2 Neut # (Auto) 3.4 Lymph # (Auto) 1.3 L [place] # (Auto) 0.5 Eos # (Auto) 0.4 Baso # (Auto) 0.1 Absolute Nucleated RBC 0.00 Nucleated RBC % 0.0 Sodium 130 L Potassium 4.5 Chloride 94 L Carbon Dioxide 25 Anion Gap 11.0 BUN 65 H Creatinine 1.9 H Estimated GFR (MDRD) 38 L Glucose 242 H POC Whole Bld Glucose 223 H Lactic Acid Calcium 9.1 Total Bilirubin 0.3 AST 18 ALT 18 Alkaline Phosphatase 81 B-Natriuretic Peptide Total Protein 7.7 Albumin 3.5 Globulin 4.2 Albumin/Globulin Ratio 0.8 L Lipase 31 Urine Color Urine Clarity Urine pH Ur Specific [place] Urine Protein Urine Glucose (UA) Urine Ketones Urine Occult Blood Urine Nitrite Urine Bilirubin Urine Urobilinogen Ur Leukocyte Esterase Ur Microscopic Review Urine Culture Comments 05/18/20 05/18/20 05/18/20 15:33 15:33 17:33 WBC RBC Hgb Hct MCV MCH MCHC RDW Plt Count MPV Neut # (Auto) Lymph # (Auto) [place]arton # (Auto) Eos # (Auto) Baso # (Auto) Absolute Nucleated RBC Nucleated RBC % Sodium Potassium Chloride Carbon Dioxide Anion Gap BUN Creatinine Estimated GFR (MDRD) Glucose POC Whole Bld Glucose Lactic Acid 1.0 Calcium Total Bilirubin AST ALT Alkaline Phosphatase B-Natriuretic Peptide 19 Total Protein Albumin Globulin Albumin/Globulin Ratio Lipase Urine Color YELLOW Urine Clarity CLEAR Urine pH 5.5 Ur Specific [place] 1.015 Urine Protein NEGATIVE Urine Glucose (UA) NEGATIVE Urine Ketones NEGATIVE Urine Occult Blood NEGATIVE Urine Nitrite NEGATIVE Urine Bilirubin NEGATIVE Urine Urobilinogen 0.2 (NORMAL) Ur Leukocyte Esterase NEGATIVE Ur Microscopic Review NOT INDICATED Urine Culture Comments NOT INDICATED 05/18/20 18:04 WBC RBC Hgb Hct MCV MCH MCHC RDW Plt Count MPV Neut # (Auto) Lymph # (Auto) [place] # (Auto) Eos # (Auto) Baso # (Auto) Absolute Nucleated RBC Nucleated RBC % Sodium 131 L Potassium 4.9 Chloride 98 L Carbon Dioxide 26 Anion Gap 7.0 BUN 63 H Creatinine 1.9 H Estimated GFR (MDRD) 38 L Glucose 253 H POC Whole Bld Glucose Lactic Acid Calcium 8.8 Total Bilirubin AST ALT Alkaline Phosphatase B-Natriuretic Peptide Total Protein Albumin Globulin Albumin/Globulin Ratio Lipase Urine Color Urine Clarity Urine pH Ur Specific [place] Urine Protein Urine Glucose (UA) Urine Ketones Urine Occult Blood Urine Nitrite Urine Bilirubin Urine Urobilinogen Ur Leukocyte Esterase Ur Microscopic Review Urine Culture Comments PD MEDICAL DECISION MAKING - ED course Complexity details: reviewed old records, reviewed results, re-evaluated patient, considered differential, d/w patient ED course: This is a very well-appearing 49-year-old diabetic male who presents to the emergency department with a chief complaint of fatigue and intermittent twitching of his lips and sometimes upper extremities. He does not report feeling lightheaded or having near fainting episodes. He has no chest pain or shortness of breath. A recent echocardiogram was completed and was essentially normal. On exam he has a normal mental status and a nonfocal neuro exam. Screening labs do show some baseline anemia which is unchanged. His electrolytes reveal a hyponatremia with a sodium of 130 and a glucose of 242. This is likely secondary to the hyperglycemia. His BUN is 65 and creatinine is 1.9. This is elevated from his baseline creatinine which seems to range 1.1- 1.4. Here in the emergency department he was given 2 L of IV fluid and then a BMP was rechecked. There was no change in renal function. I then did give a 3rd L of IV fluid. I suspect this gentleman is chronically dehydrated secondary to hyperglycemia but he does not present in DKA or HHNK. However he has been hemodynamically stable. I discussed this case briefly with And show to them the gentleman would not benefit from admission for observation and repeat labs overnight. He will be discharged home and encouraged to increase his hydration. I have advised him to follow-up with his primary care doctor within the next week to have his kidney function or BMP panel rechecked. Emergent return precautions were verbally discussed for fevers, shortness of breath or fainting episodes. Departure - Departure Disposition: Home, Self Care Clinical Impression: Dehydration, Elevated serum creatinine, Hyperglycemia Condition: Stable Record reviewed to determine appropriate education?: Yes Instructions: ED Dehydration Ch Follow-Up: Enrike Ayala MD [Primary Care Provider] - [facility] [Provider Group] Comments: Danielito cuevas were seen in the emergency department today for fatigue and intermittent twitching and jerking of your arms over the last few weeks. Today in the emergency department your labs do show that you have anemia but this is not different than it has been. You should discuss this with your primary care doctor to determine if you would benefit from additional doses of iron or a colonoscopy. Your labs today do show that your blood sugar was 242 and that you are fairly dehydrated. Here in the emergency department we have given you 3 L of IV fluid. I think it is important to increase your water intake at home. You are chronically dehydrated because your diabetes is not well controlled. Please discuss this with Dr. Ayala. Because you did have an elevated kidney function tests today I would like you to have your labs redrawn on Friday to make sure that they are improving. This can be done through your primary care office or if unable to follow-up there please go to one of our local walk-in clinics to request repeat lab evaluation.
[2020-05-18 15:50] LABS: ALBUMIN 3.5 g/dL (3.2-5.5); ALBUMIN/GLOBULIN RATIO 0.8 (1.0-2.2); BILIRUBIN,TOTAL 0.3 mg/dL (0.2-1.0); CALCIUM 9.1 mg/dL (8.5-10.3); CREATININE 1.9 mg/dL (0.6-1.2); POTASSIUM 4.5 mmol/L (3.5-5.0); TOTAL PROTEIN 7.7 g/dL (6.7-8.2)
[2020-05-18] MEDS ORDERED: SODIUM CHLORIDE 0.9% 1,000 ML IV STA ×3 (15:52→19:12)
[2020-05-18 17:44] LABS: BILIRUBIN,URINE NEGATIVE (NEGATIVE); GLUCOSE, URINE (UA) NEGATIVE (NEGATIVE); KETONES,URINE (UA) NEGATIVE (NEGATIVE); LEUKOCYTE ESTERASE, URINE NEGATIVE (NEGATIVE); NITRITE,URINE NEGATIVE (NEGATIVE); OCCULT BLOOD,URINE NEGATIVE (NEGATIVE); PH,URINE 5.5 PH (5.0-7.5); PROTEIN,URINE NEGATIVE (NEGATIVE); UROBILINOGEN,URINE 0.2 (NORMAL) E.U./dL (NORMAL)
[2020-05-18 17:48] LABS: CLARITY,URINE CLEAR (CLEAR)
[2020-05-18 18:19] LABS: CALCIUM 8.8 mg/dL (8.5-10.3); CREATININE 1.9 mg/dL (0.6-1.2); POTASSIUM 4.9 mmol/L (3.5-5.0)
[2020-05-18 20:50] VITALS: BP 122/80
== END 2020-05-18 20:49 | disposition home or self-care (01) ==
LOC: ED 14:55
DX: E86.0 Dehydration (principal); E87.1 Hypo-osmolality and hyponatremia; E11.65 Type 2 diabetes mellitus with hyperglycemia; Z79.4 Long term (current) use of insulin; R79.89 Other specified abnormal findings of blood chemistry; D64.9 Anemia, unspecified; I44.0 Atrioventricular block, first degree; I45.2 Bifascicular block
CPT/HCPCS: 36415; 80048; 80053; 81001; 81003; 83605; 83690; 83880; 85025; 87086; 93005; 96360; 96361; 99284

== ENCOUNTER 2020-05-24 13:04 | Outpatient (CLI) | payer MEDICAID ==
[2020-05-24 18:15] LABS: BASOPHILS # (AUTO) 0.1 10^3/uL (0.0-0.1); BASOPHILS % (AUTO) 0.9 %; EOSINOPHILS # (AUTO) 0.4 10^3/uL (0.0-0.7); HCT - HEMATOCRIT 30.8 % (42.0-52.0); HGB - HEMOGLOBIN 8.7 g/dL (14.0-18.0); LYMPHOCYTES # (AUTO) 1.3 10^3/uL (1.5-3.5); LYMPHOCYTES % (AUTO) 16.2 %; MEAN CORPUSCULAR HEMOGLOBIN 24.6 pg (27.0-31.0); MEAN CORPUSCULAR HGB CONC 28.2 g/dL (32.0-36.0); MEAN CORPUSCULAR VOLUME 87.3 fL (80.0-94.0); MONOCYTES # (AUTO) 0.8 10^3/uL (0.0-1.0); MONOCYTES % (AUTO) 9.9 %; NEUTROPHILS # (AUTO) 5.5 10^3/uL (1.5-6.6); NEUTROPHILS % (AUTO) 67.6 %; PLT - PLATELET COUNT 363 10^3/uL (130-450); RED BLOOD COUNT 3.53 10^6/uL (4.70-6.10); WHITE BLOOD COUNT 8.1 x10^3/uL (4.8-10.8)
[2020-05-24 18:47] LABS: CALCIUM 8.9 mg/dL (8.5-10.3); CREATININE 1.5 mg/dL (0.6-1.2); POTASSIUM 5.9 mmol/L (3.5-5.0)
[2020-05-24 18:59] LABS: THYROID STIMULATING HORMONE 5.78 uIU/mL (0.34-5.60)
[2020-05-24 19:00] LABS: FREE T4 (FREE THYROXINE) 0.64 ng/dL (0.58-1.64)
[2020-05-24 19:01] LABS: FREE T3 3.02 pg/mL (2.5-3.9)
== END 2020-05-24 23:59 | disposition home or self-care (01) ==
LOC: LAB.WCP 13:04
PROVIDERS: ATTEND Internal Medicine
DX: E11.22 Type 2 diabetes mellitus with diabetic chronic kidney disease (principal); N18.31 Chronic kidney disease, stage 3a; E11.42 Type 2 diabetes mellitus with diabetic polyneuropathy; G47.33 Obstructive sleep apnea (adult) (pediatric); R60.0 Localized edema
CPT/HCPCS: 36415; 80048; 84439; 84443; 84481; 85025

== ENCOUNTER 2020-07-25 08:00 | Outpatient (CLI) | payer MEDICAID ==
[2020-07-25 20:56] LABS: CALCIUM 8.8 mg/dL (8.5-10.3); CREATININE 1.9 mg/dL (0.6-1.2); POTASSIUM 5.2 mmol/L (3.5-5.0)
== END 2020-07-25 23:59 | disposition home or self-care (01) ==
LOC: LAB.N 08:00
PROVIDERS: ATTEND Physician Assistant Medical
DX: F95.9 Tic disorder, unspecified (principal)
CPT/HCPCS: 36415; 80048

== ENCOUNTER 2020-10-16 21:10 | Emergency (ER) | payer MEDICAID ==
[2020-10-16] MEDS ORDERED: KETOROLAC 30 MG/ML VIAL IM STA (21:22)
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
[2020-10-16] MEDS ORDERED: ACETAMINOPHEN 325 MG TABLET PO STA (22:05)
--- NOTE | 2020-10-16 22:10 | XRAY Report ---
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 COMPARISON: None FINDINGS: Bones: The distal fibula has a mildly displaced fracture. There are well-corticated ossifications dis buck to the medial malleolus and lateral malleolus consistent with remote trauma. The mortise is congr uent. Soft tissues: There is a large effusion over the lateral malleolus. Achilles tendon appears normal. IMPRESSION: 1. Mildly displaced fracture of the distal fibula. 2. Sequela of remote trauma in the ankle. Reviewed by: Joby Morris on 10/16/2020 10:09 PM PDT Approved by: Joby Morris on 10/16/2020 10:09 PM PDT Station ID: [id number]
[2020-10-17 00:23] VITALS: BP 130/85
== END 2020-10-16 23:58 | disposition home or self-care (01) ==
LOC: ED 21:10
DX: S82.832A Other fracture of upper and lower end of left fibula, initial encounter for closed fracture (principal); V86.56XA Driver of dirt bike or motor/cross bike injured in nontraffic accident, initial encounter; Y93.89 Activity, other specified; E11.51 Type 2 diabetes mellitus with diabetic peripheral angiopathy without gangrene; Z79.4 Long term (current) use of insulin
CPT/HCPCS: 73610; 96372; 99283; A9270

== ENCOUNTER 2020-10-26 07:28 | Outpatient (CLI) | payer MEDICAID ==
--- NOTE | 2020-10-26 15:52 | XRAY Report ---
PROCEDURE: Ankle 3 View LT INDICATIONS: LEFT ANKLE PAIN TECHNIQUE: 3 views of the ankle were acquired. COMPARISON: Prior ankle plain films 10/16/2020 FINDINGS: Bones: No acute fractures or dislocations but there is moderately severe degenerative ankle joint os teoarthritic change, on the left and this includes what appears to be a fracture, chronicity uncertai n, involving the talonavicular articulation with the talus partially extruded cephalad from its chaparro l position between the tarsal row and the distal talus.. Ankle mortise is near normally aligned. No suspicious bony lesions. Note is also made of a prior fracture involving the distal fibula on the r ight and moderate degenerative osteoarthritic change at the right ankle Soft tissues: No tibiotalar joint effusion. Achilles tendon appears normal. IMPRESSION: Please correlate for recent trauma. A portion of the navicular bone appears extremely de nse cephalad in its positioning in relationship to the distal talus and the proximal margin of the ta rsal bones. This is seen on the lateral view. Prior trauma to the right ankle region has occurred. It is unclear whether the abnormality seen on the left is acute, subacute or chronic. Note: The prior ankle plain films from 10/16/2020 had raises concern for presence of the distal fibula r fracture. There is mild distortion of the lateral border of the distal fibula but this appears to l ikely have represented old trauma. Follow-up by dedicated ankle CT or MR scanning may be warranted on the left, to include the hindfoot and midfoot. Reviewed by: Otis Mars MD on 10/26/2020 3:51 PM PDT Approved by: Otis Mars MD on 10/26/2020 3:51 PM PDT Station ID: [id number]
== END 2020-10-26 23:59 | disposition home or self-care (01) ==
LOC: DI.N 07:28
PROVIDERS: ATTEND Physician Assistant
DX: M25.572 Pain in left ankle and joints of left foot (principal); R93.6 Abnormal findings on diagnostic imaging of limbs

== ENCOUNTER 2020-11-21 14:56 | Outpatient (CLI) | payer MEDICAID ==
--- NOTE | 2020-11-21 18:41 | XRAY Report ---
PROCEDURE: Ankle 3 View LT INDICATIONS: FX OF UPPER PROXIMAL AND DISTAL L FIBULA TECHNIQUE: 3 views of the ankle were acquired. COMPARISON: 10/26/2020 FINDINGS: Bones: Compared to previous study, there is interval medial tilting of the talar dome in relation to distal tibia with at least partial dislocation/subluxation at tibiotalar joint and complete disruptio n of ankle mortise. Age indeterminant dislocation at talonavicular joint is again seen. No obvious ac [place] fracture is seen. Small calcified fragments are noted adjacent to tip of medial malleolus and med ial periphery of talus suggestive of old injury. Well-defined plantar and dorsal calcaneal enthesophy michelle are seen. No suspicious bony lesions. Soft tissues: No tibiotalar joint effusion. Achilles tendon appears normal. IMPRESSION: 1. Interval development of complete disruption of ankle mortise with medial tilting of talar dome as above. Chronic appearing talonavicular joint dislocation. No definite acute fracture is seen. Marked ankle soft tissue swelling. Finding could represent neuropathic joint, suggest clinical correlation. Reviewed by: Palomo Carbone MD on 11/21/2020 6:39 PM PDT Approved by: Palomo Carbone MD on 11/21/2020 6:39 PM PDT Station ID: [id number]
--- NOTE | 2020-11-21 18:43 | XRAY Report ---
PROCEDURE: Foot 3 View LT INDICATIONS: FLAT FOOT, L TECHNIQUE: 3 views of the foot were acquired. COMPARISON: 10/26/2020 FINDINGS: Bones: Chronic appearing comminuted fracture of the navicular bone is seen with suggestion of dorsal and medial displacement of a large fractured navicular bone fragment. Well-defined plantar and dorsal calcaneal enthesophytes are seen. No gross acute fracture or dislocation. Pes planus with weight fercho ring. Calcaneal pitch angle measures 14.7 degrees. no suspicious bony lesions. Soft tissues: No tibiotalar joint effusion. Achilles tendon appears normal. IMPRESSION: Pes planus with weightbearing. Chronic comminuted navicular fracture with displacement as above. No g ross acute fracture. No dislocation. Reviewed by: Palomo Carbone MD on 11/21/2020 6:42 PM PDT Approved by: Palomo Carbone MD on 11/21/2020 6:42 PM PDT Station ID: [id number]
== END 2020-11-21 14:58 ==
LOC: DI.N 14:56
PROVIDERS: ATTEND Physician Assistant
DX: S93.05XA Dislocation of left ankle joint, initial encounter (principal); S92.252A Displaced fracture of navicular [scaphoid] of left foot, initial encounter for closed fracture; M21.42 Flat foot [pes planus] (acquired), left foot

== ENCOUNTER 2021-03-12 13:29 | Emergency (ER) | payer MEDICAID ==
[2021-03-12] MEDS ORDERED: INSULIN 70/30 HUMAN 100 UNIT/1 ML 10 ML MDV SUBQ STA (14:06)
--- NOTE | 2021-03-12 14:07 | ED Physician Documentation ---
PD HPI ALTERED MENTAL STATUS - Stated complaint Stated Complaint: CONFUSTION/DAZED - Chief complaint Chief Complaint: Neuro - History obtained from History obtained from: Patient, Family - Additional information Additional information: This is a 50-year-old gentleman with anxiety and type 2 diabetes who is brought in by his significant other's mother. His significant other about half a week ago after a prolonged illness and then succumbed to COVID. Since then he has been over taking his Seroquel because he wants to sleep more but denies SI. He says he has been taking his other medications including his insulin but there is a question of that. His blood sugar in triage is 425. He does answer questions for me but then will kind of fade off and as such history taking is somewhat difficult. His significant other's mother is in the room and is quite helpful. Of note last hemoglobin A1c's suggest that at baseline he is relatively uncontrolled with regard to his diabetes. Review of Systems Unable to obtain: Uncooperative PD PAST MEDICAL HISTORY - Past Medical History Cardiovascular: None Respiratory: None Endocrine/Autoimmune: Type 2 diabetes GI: Other : None, Renal insuffiency (had some elevation creatinine few weeks ago and was told his edema is from kidney problem. On diuretic.) HEENT: None Psych: Anxiety, Other Musculoskeletal: Other Derm: None - Past Surgical History Past Surgical History: No - Present Medications Home Medications: Ambulatory Orders Medication Instructions Recorded Confirmed Buprenorphine HCl/Naloxone HCl 1 film TOP TID 05/18/20 03/12/21 [Suboxone 8 mg-2 mg Sl Film] Furosemide [Lasix] 1 tab PO DAILY 05/18/20 05/18/20 Insulin Glargine [Lantus Solostar] 05/18/20 Insulin Lispro [Humalog] 05/18/20 Pravastatin Sodium [Pravachol] 1 tab PO DAILY 05/18/20 05/18/20 Quetiapine Fumarate [Seroquel Xr] 1 tab PO DAILY 05/18/20 03/12/21 lisinopriL [Lisinopril] 1 tab PO DAILY 05/18/20 05/18/20 Pregabalin [Lyrica] 100 mg PO TID 03/12/21 03/12/21 - Allergies Allergies/Adverse Reactions: Allergies Allergy/AdvReac Type Severity Reaction Status Date / Time Sulfa (Sulfonamide Allergy Unknown Verified 03/12/21 13:45 Antibiotics) - Social History Does the pt smoke?: No Smoking Status: Never smoker Does the pt drink ETOH?: Yes Does the pt have substance abuse?: No - Immunizations Immunizations are current?: No - POLST Patient has POLST: No PD ED PE NORMAL - Vitals Vital signs reviewed: Yes - General General: Other (He will answer simple questions but then he will kind of stare off into space. Moving all extremities with good tone.) - HEENT HEENT: PERRL, EOMI - Neck Neck: Supple, no meningeal sign, No bony TTP - Cardiac Cardiac: RRR, No murmur - Respiratory Respiratory: No respiratory distress, Clear bilaterally - Abdomen Abdomen: Normal bowel sounds, Soft, Non tender - Back Back: No CVA TTP, No spinal TTP - Derm Derm: Normal color, Warm and dry - Extremities Extremities: Other (Multiple scratch dexter on his right arm and on the neck that appear scrotal self-inflicted with fingernails. Nothing deep.) - Neuro Neuro: No motor deficit, No sensory deficit Results - Vitals Vitals: Vital Signs - 24 hr 03/12/21 03/12/21 03/12/21 13:38 15:45 17:00 Temperature 36.0 C L 36.5 C Heart Rate 84 78 77 Respiratory 16 16 16 Rate Blood Pressure 147/73 H 137/55 H 150/94 H O2 Saturation 99 100 97 03/12/21 03/12/21 20:57 22:00 Temperature 36.5 C Heart Rate 72 78 Respiratory 16 16 Rate Blood Pressure 141/89 H 143/90 H O2 Saturation 96 97 Oxygen O2 Source Room air - EKG (time done) 1429 Rate: Rate (enter#) (68) Rhythm: NSR [place]: Normal Intervals: Prolonged GA, RBBB (incomplete) QRS: LVH Ischemia: Non specific changes. No: ST elevation c/w ischemia, ST depression - Labs Labs: Laboratory Tests 03/12/21 03/12/21 03/12/21 13:44 14:35 14:35 WBC RBC Hgb Hct MCV MCH MCHC RDW Plt Count MPV Neut # (Auto) Lymph # (Auto) [place] # (Auto) Eos # (Auto) Baso # (Auto) Absolute Nucleated RBC Nucleated RBC % Sodium Potassium Chloride Carbon Dioxide Anion Gap BUN Creatinine Estimated GFR (MDRD) Glucose POC Whole Bld Glucose 425 H Calcium Total Bilirubin AST ALT Alkaline Phosphatase Total Protein Albumin Globulin Albumin/Globulin Ratio Lipase TSH Urine Color YELLOW Urine Clarity CLEAR Urine pH 5.5 Ur Specific [place] >=1.030 H Urine Protein 100 H Urine Glucose (UA) >=1000 H Urine Ketones TRACE Urine Occult Blood TRACE-INTA Urine Nitrite NEGATIVE Urine Bilirubin NEGATIVE Urine Urobilinogen 1 (NORMAL) Ur Leukocyte Esterase NEGATIVE Urine RBC 0-5 Urine WBC 0-3 Ur Squamous Epith Cells RARE Squamous Urine Bacteria Rare Urine Casts 6-10 Hyaline Casts Urine Mucus Few Strands Ur Microscopic Review INDICATED Urine Culture Comments NOT INDICATED Nasal Adenovirus (PCR) NOT DETECTED Nasal B. parapertussis DNA (PCR) NOT DETECTED Nasal Coronavir 229E PCR NOT DETECTED Nasal Coronavir HKU1 PCR NOT DETECTED Nasal Coronavir NL63 PCR NOT DETECTED Nasal Coronavir OC43 PCR NOT DETECTED Nasal Enterovir/Rhinovir PCR NOT DETECTED Nasal Influenza B PCR NOT DETECTED Nasal Influenza A PCR NOT DETECTED Nasal Parainfluen 1 PCR NOT DETECTED Nasal Parainfluen 2 PCR NOT DETECTED Nasal Parainfluen 3 PCR NOT DETECTED Nasal Parainfluen 4 PCR NOT DETECTED Nasal RSV (PCR) NOT DETECTED Nasal B.pertussis DNA PCR NOT DETECTED Nasal C.pneumoniae (PCR) NOT DETECTED [place] Human Metapneumo PCR NOT DETECTED Nasal M.pneumoniae (PCR) NOT DETECTED Nasal SARS-CoV-2 (PCR) NOT DETECTED Salicylates Urine Opiates Screen NEGATIVE Ur Oxycodone Screen NEGATIVE Urine Methadone Screen NEGATIVE Ur Propoxyphene Screen NEGATIVE Acetaminophen Ur Barbiturates Screen NEGATIVE Ur Tricyclics Screen POSITIVE H Ur Phencyclidine Scrn NEGATIVE Ur Amphetamine Screen NEGATIVE U Methamphetamines Scrn NEGATIVE U Benzodiazepines Scrn NEGATIVE Urine Cocaine Screen NEGATIVE U Cannabinoids Screen NEGATIVE Ethyl Alcohol 03/12/21 03/12/21 03/12/21 14:44 14:44 14:44 WBC 7.9 RBC 4.80 Hgb 11.6 L Hct 37.8 L MCV 78.8 L MCH 24.2 L MCHC 30.7 L RDW 15.0 Plt Count 551 H MPV 10.5 Neut # (Auto) 6.1 Lymph # (Auto) 1.0 L [place] # (Auto) 0.7 Eos # (Auto) 0.0 Baso # (Auto) 0.1 Absolute Nucleated RBC 0.00 Nucleated RBC % 0.0 Sodium 133 L Potassium 4.8 Chloride 96 L Carbon Dioxide 24 Anion Gap 13.0 BUN 32 H Creatinine 1.4 H Estimated GFR (MDRD) 53 L Glucose 502 H* POC Whole Bld Glucose Calcium 9.5 Total Bilirubin 0.8 AST 29 ALT 38 Alkaline Phosphatase 128 H Total Protein 8.9 H Albumin 3.9 Globulin 5.0 H Albumin/Globulin Ratio 0.8 L Lipase 32 TSH 3.44 Urine Color Urine Clarity Urine pH Ur Specific [place] Urine Protein Urine Glucose (UA) Urine Ketones Urine Occult Blood Urine Nitrite Urine Bilirubin Urine Urobilinogen Ur Leukocyte Esterase Urine RBC Urine WBC Ur Squamous Epith Cells Urine Bacteria Urine Casts Urine Mucus Ur Microscopic Review Urine Culture Comments Nasal Adenovirus (PCR) Nasal B. parapertussis DNA (PCR) Nasal Coronavir 229E PCR Nasal Coronavir HKU1 PCR Nasal Coronavir NL63 PCR Nasal Coronavir OC43 PCR Nasal Enterovir/Rhinovir PCR Nasal Influenza B PCR Nasal Influenza A PCR Nasal Parainfluen 1 PCR Nasal Parainfluen 2 PCR Nasal Parainfluen 3 PCR Nasal Parainfluen 4 PCR Nasal RSV (PCR) Nasal B.pertussis DNA PCR Nasal C.pneumoniae (PCR) [place] Human Metapneumo PCR Nasal M.pneumoniae (PCR) Nasal SARS-CoV-2 (PCR) Salicylates < 6.0 Urine Opiates Screen Ur Oxycodone Screen Urine Methadone Screen Ur Propoxyphene Screen Acetaminophen < 10 L Ur Barbiturates Screen Ur Tricyclics Screen Ur Phencyclidine Scrn Ur Amphetamine Screen U Methamphetamines Scrn U Benzodiazepines Scrn Urine Cocaine Screen U Cannabinoids Screen Ethyl Alcohol < 5.0 03/12/21 03/12/21 03/12/21 15:43 17:07 17:56 WBC RBC Hgb Hct MCV MCH MCHC RDW Plt Count MPV Neut # (Auto) Lymph # (Auto) [place] # (Auto) Eos # (Auto) Baso # (Auto) Absolute Nucleated RBC Nucleated RBC % Sodium Potassium Chloride Carbon Dioxide Anion Gap BUN Creatinine Estimated GFR (MDRD) Glucose POC Whole Bld Glucose 466 H 450 H 451 H Calcium Total Bilirubin AST ALT Alkaline Phosphatase Total Protein Albumin Globulin Albumin/Globulin Ratio Lipase TSH Urine Color Urine Clarity Urine pH Ur Specific [place] Urine Protein Urine Glucose (UA) Urine Ketones Urine Occult Blood Urine Nitrite Urine Bilirubin Urine Urobilinogen Ur Leukocyte Esterase Urine RBC Urine WBC Ur Squamous Epith Cells Urine Bacteria Urine Casts Urine Mucus Ur Microscopic Review Urine Culture Comments Nasal Adenovirus (PCR) Nasal B. parapertussis DNA (PCR) Nasal Coronavir 229E PCR Nasal Coronavir HKU1 PCR Nasal Coronavir NL63 PCR Nasal Coronavir OC43 PCR Nasal Enterovir/Rhinovir PCR Nasal Influenza B PCR Nasal Influenza A PCR Nasal Parainfluen 1 PCR Nasal Parainfluen 2 PCR Nasal Parainfluen 3 PCR Nasal Parainfluen 4 PCR Nasal RSV (PCR) Nasal B.pertussis DNA PCR Nasal C.pneumoniae (PCR) [place] Human Metapneumo PCR Nasal M.pneumoniae (PCR) Nasal SARS-CoV-2 (PCR) Salicylates Urine Opiates Screen Ur Oxycodone Screen Urine Methadone Screen Ur Propoxyphene Screen Acetaminophen Ur Barbiturates Screen Ur Tricyclics Screen Ur Phencyclidine Scrn Ur Amphetamine Screen U Methamphetamines Scrn U Benzodiazepines Scrn Urine Cocaine Screen U Cannabinoids Screen Ethyl Alcohol PD MEDICAL DECISION MAKING - ED course ED course: 50-year-old gentleman who suffered a recent loss and is undergoing a grief reaction. At times he is calm and cooperative but other times he is despondent and will not talk. I spent a long time with him trying to figure out what his goals were and he is in such a level of grief that he really cannot verbalize whether he be like to be hospitalized or follow-up outpatient. It was also some sure to get his blood sugar under control but uses divided doses of subcutaneous insulin we were not able to improve his glycemic control significantly. He is boarding pending social work consultation. Departure - Departure Clinical Impression: Abnormal grief reaction, Uncontrolled type II diabetes mellitus, Nonadherence to medication
[2021-03-12 14:48] LABS: MUDS CUTOFF CONCENTRATIONS CUTOFF CONC BELOW:
[2021-03-12 14:50] LABS: BASOPHILS # (AUTO) 0.1 10^3/uL (0.0-0.1); BASOPHILS % (AUTO) 0.6 %; EOSINOPHILS % (AUTO) 0.5 %; HCT - HEMATOCRIT 37.8 % (42.0-52.0); HGB - HEMOGLOBIN 11.6 g/dL (14.0-18.0); LYMPHOCYTES % (AUTO) 12.2 %; MEAN CORPUSCULAR HEMOGLOBIN 24.2 pg (27.0-31.0); MEAN CORPUSCULAR HGB CONC 30.7 g/dL (32.0-36.0); MEAN CORPUSCULAR VOLUME 78.8 fL (80.0-94.0); MEAN PLATELET VOLUME 10.5 fL (7.4-11.4); MONOCYTES # (AUTO) 0.7 10^3/uL (0.0-1.0); NEUTROPHILS # (AUTO) 6.1 10^3/uL (1.5-6.6); NEUTROPHILS % (AUTO) 77.4 %; PLT - PLATELET COUNT 551 10^3/uL (130-450); WHITE BLOOD COUNT 7.9 x10^3/uL (4.8-10.8)
[2021-03-12 15:06] LABS: BILIRUBIN,URINE NEGATIVE (NEGATIVE); GLUCOSE, URINE (UA) >=1000 mg/dL (NEGATIVE); KETONES,URINE (UA) TRACE mg/dL (NEGATIVE); LEUKOCYTE ESTERASE, URINE NEGATIVE (NEGATIVE); NITRITE,URINE NEGATIVE (NEGATIVE); OCCULT BLOOD,URINE TRACE-INTA (NEGATIVE); PH,URINE 5.5 PH (5.0-7.5); PROTEIN,URINE 100 mg/dL (NEGATIVE); UROBILINOGEN,URINE 1 (NORMAL) E.U./dL (NORMAL)
[2021-03-12 15:08] LABS: ACETAMINOPHEN < 10 ug/mL (10-30); ALBUMIN 3.9 g/dL (3.2-5.5); ALBUMIN/GLOBULIN RATIO 0.8 (1.0-2.2); ALKALINE PHOSPHATASE 128 IU/L (42-121); ALT ALANINE AMINOTRANSFERASE 38 IU/L (10-60); AST ASPARTATE AMINOTRANSFERASE 29 IU/L (10-42); BILIRUBIN,TOTAL 0.8 mg/dL (0.2-1.0); BUN - BLOOD UREA NITROGEN 32 mg/dL (6-20); CALCIUM 9.5 mg/dL (8.5-10.3); CARBON DIOXIDE - CO2 24 mmol/L (21-32); CHLORIDE 96 mmol/L (101-111); CREATININE 1.4 mg/dL (0.6-1.2); ETOH - ETHANOL < 5.0 mg/dL; GFR - MDRD 53 (>89); LIPASE 32 U/L (22-51); POTASSIUM 4.8 mmol/L (3.5-5.0); SALICYLATE < 6.0 mg/dL; SODIUM 133 mmol/L (135-145); TOTAL PROTEIN 8.9 g/dL (6.7-8.2)
[2021-03-12 15:09] LABS: GLUCOSE 502 mg/dL (70-100)
[2021-03-12 15:17] LABS: CLARITY,URINE CLEAR (CLEAR)
[2021-03-12 15:18] LABS: AMPHETAMINE SCREEN,URINE NEGATIVE (NEGATIVE); BARBITURATE SCREEN,UR NEGATIVE (NEGATIVE); BENZODIAZEPINES SCREEN, URINE NEGATIVE (NEGATIVE); COCAINE SCREEN URINE NEGATIVE (NEGATIVE); METHADONE SCREEN, URINE NEGATIVE (NEGATIVE); METHAMPHETAMINES SCREEN, URINE NEGATIVE (NEGATIVE); OPIATE SCREEN, URINE NEGATIVE (NEGATIVE); OXYCODONE SCREEN, URINE NEGATIVE (NEGATIVE); PROPOXYPHENE SCREEN, URINE NEGATIVE (NEGATIVE); THC CANNABINOID SCREEN, URINE NEGATIVE (NEGATIVE); TRICYCLIC ANTIDEPRESSANT,URINE POSITIVE (NEGATIVE)
[2021-03-12 15:23] LABS: BACTERIA,URINE Rare /HPF (None Seen); CASTS, URINE 6-10 Hyaline Casts /LPF; MUCUS,URINE Few Strands; RBC,URINE 0-5 /HPF (0-5); SQUAMOUS EPITHELIAL CELL,UR RARE Squamous (<= Few); WBC,URINE 0-3 /HPF (0-3)
[2021-03-12 15:42] LABS: B. PARAPERTUSSIS- RESP PCR PAN NOT DETECTED; B. PERTUSSIS- RESP PCR PANEL NOT DETECTED; C. PNEUMONIAE- RESP PCR PANEL NOT DETECTED; CORONAVIRUS 229E-RESP PCR NOT DETECTED; CORONAVIRUS HKU1-RESP PCR NOT DETECTED; CORONAVIRUS NL63-RESP PCR NOT DETECTED; CORONAVIRUS OC43-RESP PCR NOT DETECTED; HUMAN METAPNEUMOVIRUS NOT DETECTED; INFLUENZA A- RESP PCR PANEL NOT DETECTED; INFLUENZA B - RESP PCR PANEL NOT DETECTED; M. PNEUMONIAE- RESP PCR PANEL NOT DETECTED; PARAINFLUENZA VIRUS 1 NOT DETECTED; PARAINFLUENZA VIRUS 2 NOT DETECTED; PARAINFLUENZA VIRUS 3 NOT DETECTED; PARAINFLUENZA VIRUS 4 NOT DETECTED; RHINOVIRUS/ENTEROVIRUS NOT DETECTED; RSV- RESP PCR PANEL NOT DETECTED; SARS-CoV-2 -RESP PCR PANEL NOT DETECTED
[2021-03-12] MEDS ORDERED: INSULIN REGULAR HUMAN 100 UNIT/1 ML 10 ML MDV SUBQ STA ×2 (16:01→18:26)
[2021-03-12] MEDS ORDERED: INSULIN GLARGINE 300 UNIT/3 ML PEN SUBQ STA (23:12)
[2021-03-13] MEDS ORDERED: INSULIN REGULAR HUMAN 100 UNIT/1 ML 10 ML MDV SUBQ STA (04:43)
[2021-03-13] MEDS ORDERED: SODIUM CHLORIDE 0.9% 1,000 ML IV STA (07:20)
[2021-03-13] MEDS ORDERED: INSULIN GLARGINE 300 UNIT/3 ML PEN SUBQ SCH ×3 (09:00→21:00)
[2021-03-13] MEDS ORDERED: INSULIN 70/30 HUMAN 100 UNIT/1 ML 10 ML MDV SUBQ STA ×2 (09:01→16:50)
--- NOTE | 2021-03-13 09:10 | ED Physician Documentation ---
ED Addendum - Addendum Addendum: 03/13/21 09:08 50-year-old diabetic male with blood sugar out of control appears to be having a pathologic grieving response and is withdrawn. He has been treated in the emergency department with subcutaneous insulin and today we have added some intravenous fluids. The patient's affect is flat and it is difficult to make a connection with the patient historically. I did attempt to evaluate the patient's volume status and I was unable to image the IVC secondary to bowel gas.
[2021-03-13 11:31] VITALS: BP 145/94
[2021-03-14] MEDS ORDERED: INSULIN GLARGINE 300 UNIT/3 ML PEN SUBQ SCH (09:00)
== END 2021-03-13 17:26 | disposition home or self-care (01) ==
LOC: ED 13:29
DX: F43.20 Adjustment disorder, unspecified (principal); E11.649 Type 2 diabetes mellitus with hypoglycemia without coma; Z79.4 Long term (current) use of insulin; Z91.14 Patient's other noncompliance with medication regimen; Z20.822 Contact with and (suspected) exposure to COVID-19; N28.9 Disorder of kidney and ureter, unspecified
CPT/HCPCS: 0202U; 36415; 80053; 80306; 80307; 80320; 80329; 81001; 83690; 84443; 85025; 93005; 96360; 96361; 99281; 99283; J1815; 81003; 87086

== ENCOUNTER 2021-11-07 08:48 | Outpatient (CLI) | payer MEDICAID ==
--- NOTE | 2021-11-07 14:26 | Ultrasound Report ---
PROCEDURE: Carotid Doppler Complete INDICATIONS: TIA TECHNIQUE: Color and pulse Doppler interrogation was performed of both carotid systems, with image documentation and velocity measurements. COMPARISON: None. FINDINGS: Right side: Brachial blood pressure: 136/74 mm Hg. Common carotid artery peak systolic velocity: 123 cm/sec. Internal carotid artery peak systolic velocity: 100 cm/sec. Internal carotid artery end diastolic velocity: 34.8 cm/sec. External carotid artery peak systolic velocity: 78.8 cm/sec. ICA/CCA peak systolic ratio: 0.9 . Louis scale imaging description: No significant atherosclerotic plaques are noted. Percent internal carotid artery stenosis: Normal . Vertebral artery: Flow direction is antegrade. Left side: Brachial blood pressure: 136/79 mm Hg. Common carotid artery peak systolic velocity: 122.8 cm/sec. Internal carotid artery peak systolic velocity: 85 cm/sec. Internal carotid artery end diastolic velocity: 32.8 cm/sec. External carotid artery peak systolic velocity: 111.4 cm/sec. ICA/CCA peak systolic ratio: 0.8 . Louis scale imaging description: Mild atherosclerotic plaque in distal left common carotid artery is seen. Percent internal carotid artery stenosis: Normal. Vertebral artery: Flow direction is antegrade. IMPRESSION: No hemodynamically significant stenosis is seen in bilateral internal carotid arteries. The estimate of stenosis included in the report of the imaging study was calculated using the NASCET method Reviewed by: Palomo Carbone MD on 11/07/2021 2:24 PM PDT Approved by: Palomo Carbone MD on 11/07/2021 2:24 PM PDT Station ID: [id number]
== END 2021-11-07 08:49 | disposition home or self-care (01) ==
LOC: DI 08:48
PROVIDERS: ATTEND Internal Medicine
DX: I34.0 Nonrheumatic mitral (valve) insufficiency (principal); I51.7 Cardiomegaly; I99.8 Other disorder of circulatory system; I77.810 Thoracic aortic ectasia; Z86.73 Personal history of transient ischemic attack (TIA), and cerebral infarction without residual deficits
CPT/HCPCS: 93306; 93880

== ENCOUNTER 2022-01-22 13:43 | Outpatient (CLI) | payer MEDICAID ==
[2022-01-28 14:35] VITALS: BP 132/87
== END 2022-01-22 13:44 | disposition home or self-care (01) ==
LOC: MAC.MOP 13:43
PROVIDERS: ATTEND Internal Medicine
DX: G45.9 Transient cerebral ischemic attack, unspecified (principal)
CPT/HCPCS: 93246

== ENCOUNTER 2022-02-19 10:30 | Outpatient (CLI) | payer MEDICAID | END 2022-02-19 10:31 | disposition home or self-care (01) | LOC: MAC.MOP 10:30 | PROVIDERS: ATTEND Internal Medicine | DX: G45.9 Transient cerebral ischemic attack, unspecified (principal); I47.1 Supraventricular tachycardia; I49.1 Atrial premature depolarization; I49.3 Ventricular premature depolarization | CPT/HCPCS: 93248 ==

== ENCOUNTER 2022-04-04 16:32 | Outpatient (CLI) | payer MEDICAID ==
--- NOTE | 2022-04-05 12:15 | XRAY Report ---
PROCEDURE: Foot 3 View RT INDICATIONS: FOOT PAIN RIGHT TECHNIQUE: 3 views of the foot were acquired. COMPARISON: None FINDINGS: Bones: No fractures or dislocations. Mild to moderate osteoarthritic changes are noted throughout ri ght foot more notably at first MTP joint and first interphalangeal joint with joint space narrowing, subchondral sclerosis and prominent marginal osteophyte formation. No suspicious bony lesions. Well-d efined plantar and dorsal calcaneal enthesophytes are seen. Soft tissues: No tibiotalar joint effusion. Achilles tendon appears normal. IMPRESSION: Osteoarthritic changes in the right foot as above. No fracture or dislocation. No gross soft tissue a bnormalities. Well-defined calcaneal enthesophytes. Reviewed by: Palomo Carbone MD on 04/05/2022 12:14 PM PST Approved by: Palomo Carbone MD on 04/05/2022 12:14 PM [facility] Station ID: [id number]
== END 2022-04-04 16:33 | disposition home or self-care (01) ==
LOC: DI 16:32
PROVIDERS: ATTEND Internal Medicine
DX: M19.071 Primary osteoarthritis, right ankle and foot (principal); M77.31 Calcaneal spur, right foot

== ENCOUNTER 2022-06-12 14:05 | Outpatient (CLI) | payer MEDICAID ==
[2022-06-12 15:08] VITALS: BP 138/76
--- NOTE | 2022-06-12 15:08 | SLEEP CARE CONSULTATION ---
Information from patient questionnaire entered by Yessi Lombardo. I have reviewed and concur with the information entered by Yessi Lombardo. This document represents the service I personally performed and the decisions made by me, Lucila Lal ARNP. History of Present Illness Service Date and Time: 06/12/2022 1405 Reason for Visit: New patient, Previously diagnosed sleep apnea, Re-establish care Chief Complaint: reports: Insomnia, Unrefreshed sleep, Excessive daytime sleepiness, Observed pauses in breathing, Fatigue, Frequent awakenings at night Date of Onset: LONG I CAN REMEMBER 20YRS Usual bedtime: 1130PM ADDY Time it takes to fall asleep: ALL NIGHT Snores at night: Yes Observed to quit breathing while asleep: Yes Sleeps alone due to snoring: No Number of times waking at night: 3-4 Reasons for waking at night: reports: Snoring, Gasping for air, Pain, Bathroom Toss, Turn, or Twitch while sleeping: No Recalls having dreams: Yes Usually gets out of bed at: 9 Feels refreshed in the morning: No Morning headache: Yes (AFTER MEDICATION) Ever fallen asleep while driving: Yes Takes day naps: Yes Dreams during day naps: No Prior sleep studies: Yes Year and Where: HERE Additional HPI information: CAROLINE SMALLS was previously diagnosed to have extremely severe, AHI 96.4, obstructive sleep apnea-hypopnea syndrome as shown in HST dated 12/04/2017 and 01/07/2018 and comes in today to establish care for CPAP therapy. - Parasomnia Symptoms Ever been unable to move upon waking from sleep: No Walks in sleep: Yes Talks in sleep: No Ever acted out dreams in sleep: No Ever felt weak in the knees when startled or emotional: Yes Bothered by creepy, crawly, restless sensations in legs: No Problems with memory or concentration: Yes CPAP Compliance Data - Data Reviewed with Patient Average duration of nightly device use: 5 minutes 33 secs Compliance rate %: 0 (176 days used) Current pressure setting (cmH2O): 4-6 Average residual AHI: 45.8 Average large leak: 0 Compliance data discussion: Patient has a Dreamstation that was received in 2019. He has not registered it with the recall. He has not been consistently using his CPAP. 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 Patient is Single and lives in . Have you smoked in the past 12 months: No Alcohol use: No Caffeine use: Yes Caffeine amount and frequency: 2 CUPS EVERYDAY Family History Family history of sleep disordered breathing: Yes Family Hx Sleep Apnea: Father: Snoring Allergies and Home Medications Known drug allergies: Yes (sulfa) Drug allergies reviewed: Yes Home medication list reviewed: Yes (as updated in EMR) Allergy and home medication list: Allergies Sulfa (Sulfonamide Antibiotics) Allergy (Verified 06/11/22 14:51) Unknown Review of Systems Weight gain over past 5 years: 84 Weight loss over past 5 years: 50 Cardiovascular: reports: high blood pressure, chest pain, leg or foot swelling, have to sleep sitting up Gastrointestinal: reports: heartburn, nausea, abdominal pain Urinary: reports: frequency Psychiatric: reports: anxiety Ear/Nose/Throat: reports: nasal congestion, sinus problems Endocrine: reports: sluggishness, too hot or cold, excessive thirst Musculoskeletal: reports: joint pain, other (ANKLE PAIN) Physical Exam Vital signs obtained and entered by: YESSI Weathers MA Blood Pressure: 138/76 (LEFT ARM) Cuff size: regular Heart Rate: 75 O2 Saturation: 98 Height: 6 ft Weight: 288 lb Body Mass Index: 39.0 BMI Classification: Obese Neck circumference: 20 Heart: regular rate and rhythm Lungs: clear bilaterally Impression and Plan 1. Obstructive Sleep Apnea-Hypopnea Syndrome, extremely severe, as previously diagnosed andsuggested by a history of loud and irregular snoring, observed cessation of breath while asleep, gasping or choking in sleep, frequent awakening during the night, unrefreshed sleep, cognitive impairment, and excessive daytime sleepiness. Patient has been unable to consistently use his CPAP for many years. He feels the pressure is just too high and is unable to wear the mask for more than a few minutes. He is currently set at 4-6 cm H2O for his pressure with a residual AHI over 45. Patient has lost about 15-20 pounds of weight recently. I recommend proceeding to polysomnography to confirm the diagnosis and to assess severity. If the patient has significant sleep disordered breathing, a manual CPAP titration study will also be performed to find the optimal treatment pressure. After some discussion, I obtained agreement to proceed. The pathophysiology of obstructive sleep apnea-hypopnea syndrome was discussed with the patient and health risks of cardiovascular and cerebrovascular disease if not treated. 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 Patient agreed to plan. * Schedule polysomnography +- manual CPAP titration study and return in 1-2 weeks after the study to discuss result and initiate therapy. * Avoid long distance driving or driving when feeling sleepy. * Avoid alcohol, sedative and muscle relaxant around bedtime. * Attempt to lose weight. * Review instructions provided by trained office staff on how to prepare for the sleep study. * Return for follow-up after sleep study completed. Counseling Topics: Weight loss health impact Visit Type: In Office Time Spent with Patient (minutes): 40 Provider Statement: I spent 100% of the Face to Face Visit with the patient with greater than 50% spent counseling the patient and coordination of care.
== END 2022-06-12 14:06 | disposition home or self-care (01) ==
LOC: SC 14:05
PROVIDERS: ATTEND Nurse Practitioner Family
DX: G47.33 Obstructive sleep apnea (adult) (pediatric) (principal); E66.9 Obesity, unspecified; Z68.39 Body mass index [BMI] 39.0-39.9, adult
CPT/HCPCS: 99203; 99212

== ENCOUNTER 2022-07-01 20:25 | Outpatient (CLI) | payer MEDICAID | END 2022-07-01 20:26 | disposition home or self-care (01) | LOC: SC 20:25 | PROVIDERS: ATTEND Nurse Practitioner Family | DX: G47.31 Primary central sleep apnea (principal) | CPT/HCPCS: 95810 ==

== ENCOUNTER 2022-07-17 11:26 | Outpatient (CLI) | payer MEDICAID ==
--- NOTE | 2022-07-17 11:49 | Sleep Patient Instructions ---
Sleep Center Visit Summary - Patient Visit Information Reason for Visit: Sleep study followup - Patient Instructions Additional Instructions: You will be completing a titration sleep study in our sleep lab where you will be sleeping with the PAP machine on and we will be adjusting your pressures to find your optimal pressure settings. Once we have your results back, we will call you and schedule a follow up to go over the results. You will be called by our office staff to schedule your follow up, but you may contact us with any questions or issue as needed. - Clinic Information Contact: [facility] [address] [place] [address] [email or web address] T: [phone]
--- NOTE | 2022-07-17 11:54 | SLEEP CARE CONSULTATION ---
Information from patient questionnaire entered by Yessi Lombardo. I have reviewed and concur with the information entered by Yessi Lombardo. This document represents the service I personally performed and the decisions made by , Lucila Lal ARNP. History of Present Illness Service Date and Time: 07/17/2022 112 Initial [place] Sleepiness Scale score: 6 (06/12/22) Current [place] Sleepiness Scale score: 6 (07/17/22) Additional HPI information: CAROLINE SMALLS returns for follow up and results of the recently performed polysomnography. He was found to have very severe central sleep apnea with an AHI of 70.9 and sandip oxygen saturation of 84%. I explained the pathophysiology behind obstructive sleep apnea. We then spent quite a bit of time discussing different treatment options. For mild obstructive sleep apnea, surgery and oral appliance are alternatives to nasal CPAP therapy but in moderate or severe cases, nasal CPAP is the most effective and reliable treatment. I reviewed the impact of weight changes on sleep apnea and strongly recommended losing weight. Because patient has very severe central sleep apnea, he should return for a titration study to determine effective pressure settings on his PAP device. Dennis robbins counseled not drink alcohol less than 4 hours before bedtime as it can increase snoring and apnea. Patient was cautioned about risks of drowsy driving until sleepiness symptoms resolve. Patient denies drowsy driving. Sleep Study - Results Type of Sleep Study: Polysomnography (COMPLETED 07/01/22) Prior sleep studies: Yes Year and Where: HERE Polysomnography/Home Sleep Study results: IMPRESSION: The quality of the study is good. The patient had normal sleep efficiency. The sleep architecture was abnormal for sleep fragmentation and reduced amount of time spent in REM and slow wave sleep (N3). Respiratory monitoring showed very severe central sleep apnea-hypopnea (AHI = 70.9) associated with frequent arousals, oxyhemoglobin desaturation and mild hypoxia (sandip oxygen saturation of 84%). The patient only slept supine during this study (supine AHI = 70.9; non-supine = 0.00). Snore was infrequent and light in intensity. There was no significant periodic leg movement of sleep. Cardiac rhythm was normal sinus rhythm without significant arrhythmia. No abnormal behavior (parasomnia) observed during the night. Allergies and Home Medications Known drug allergies: Yes (sulfa) Drug allergies reviewed: Yes Home medication list reviewed: Yes (no changes) Allergy and home medication list: Allergies Sulfa (Sulfonamide Antibiotics) Allergy (Verified 07/16/22 15:39) Unknown Review of Systems Review of systems same as previous: Yes (no changes) Physical Exam Vital signs obtained and entered by: YESSI Weathers MA Blood Pressure: 112/60 (LEFT ARM) Cuff size: regular Heart Rate: 81 O2 Saturation: 97 Height: 6 ft Weight: 290 lb Weight change since last visit: 2 lb gain Body Mass Index: 39.3 BMI Classification: Obese Impression and Plan 1. Central Sleep Apnea-Hypopnea Syndrome, very severe, with lowest oxygen saturation of 84%. Obviously this is the cause of the patients symptoms of unrefreshed sleep, and excessive daytime sleepiness. Positive pressure therapy could benefit hypertension, diabetes, anxiety and cerebrovascular disease (TIAs). Patient has very severe central sleep apnea. He has problems with the pressure feeling too high with pressures set at 4-6 cmH2O on a CPAP. I think we need to have him come back for a titration study to determine most effective settings for PAP therapy. Patient voiced understanding and agreement with plan of care. 2. Hypoxemia, mild, with a sandip oxygen saturation of 84% and 16.8 minutes spent under 90%. His baseline oxygen saturation was normal with an average oxygen saturation of 92%. * Titration study * Attempt to lose weight. * Avoid alcohol consumption near bedtime. * The patient is again cautioned about driving until sleepiness completely resolves. * Return after titration study completed. Counseling Topics: Weight loss health impact Plan: Titration study Visit Type: In Office Time Spent with Patient (minutes): 21 Provider Statement: I spent 100% of the Face to Face Visit with the patient with greater than 50% spent counseling the patient and coordination of care.
[2022-07-17 11:55] VITALS: BP 112/60
== END 2022-07-17 11:27 | disposition home or self-care (01) ==
LOC: SC 11:26
PROVIDERS: ATTEND Nurse Practitioner Family
DX: G47.31 Primary central sleep apnea (principal); R09.02 Hypoxemia; E66.9 Obesity, unspecified; Z68.39 Body mass index [BMI] 39.0-39.9, adult
CPT/HCPCS: 99212; 99213

== ENCOUNTER 2022-07-21 23:52 | Emergency (ER) | payer MEDICAID ==
[2022-07-22 00:24] LABS: BASOPHILS # (AUTO) 0.1 10^3/uL (0.0-0.1); BASOPHILS % (AUTO) 0.7 %; EOSINOPHILS # (AUTO) 0.1 10^3/uL (0.0-0.7); HCT - HEMATOCRIT 39.2 % (42.0-52.0); HGB - HEMOGLOBIN 12.3 g/dL (14.0-18.0); LYMPHOCYTES # (AUTO) 1.2 10^3/uL (1.5-3.5); LYMPHOCYTES % (AUTO) 14.1 %; MEAN CORPUSCULAR HEMOGLOBIN 27.5 pg (27.0-31.0); MEAN CORPUSCULAR HGB CONC 31.4 g/dL (32.0-36.0); MEAN CORPUSCULAR VOLUME 87.5 fL (80.0-94.0); MEAN PLATELET VOLUME 10.2 fL (7.4-11.4); MONOCYTES # (AUTO) 0.5 10^3/uL (0.0-1.0); MONOCYTES % (AUTO) 6.4 %; NEUTROPHILS # (AUTO) 6.4 10^3/uL (1.5-6.6); NEUTROPHILS % (AUTO) 77.4 %; PLT - PLATELET COUNT 299 10^3/uL (130-450); RED BLOOD COUNT 4.48 10^6/uL (4.70-6.10); RED CELL DISTRIBUTION WIDTH 13.5 % (12.0-15.0); WHITE BLOOD COUNT 8.3 x10^3/uL (4.8-10.8)
--- NOTE | 2022-07-22 00:31 | XRAY Report ---
PROCEDURE: Chest 1 View X-Ray INDICATIONS: Chest pain TECHNIQUE: One view of the chest was acquired. COMPARISON: Chest radiographs 06/23/2017. FINDINGS: Surgical changes and devices: None. Lungs and pleura: No pleural effusions or pneumothorax. Lungs are clear. Mediastinum: Mediastinal contours appear normal. Heart size is normal. Bones and chest wall: No suspicious bony lesions. Overlying soft tissues appear unremarkable. IMPRESSION: No acute cardiopulmonary process. Reviewed by: Eb Dutton MD on 07/22/2022 12:29 AM PDT Approved by: Eb Dutton MD on 07/22/2022 12:29 AM PDT Station ID: [id number]
[2022-07-22] MEDS ORDERED: SODIUM CHLORIDE 0.9% 1,000 ML IV STA (00:43)
[2022-07-22 00:50] LABS: ALBUMIN 4.3 g/dL (3.2-5.5); ALBUMIN/GLOBULIN RATIO 1.2 (1.0-2.2); BILIRUBIN,TOTAL 0.4 mg/dL (0.2-1.0); CALCIUM 9.5 mg/dL (8.5-10.3); CREATININE 1.9 mg/dL (0.6-1.2); POTASSIUM 4.2 mmol/L (3.5-5.0); TOTAL PROTEIN 7.9 g/dL (6.7-8.2)
[2022-07-22 02:35] VITALS: BP 100/61
--- NOTE | 2022-07-22 02:39 | ED Physician Documentation ---
PD HPI CHEST PAIN - Stated complaint Stated Complaint: SOA/CHEST PX - Chief complaint Chief Complaint: Cardiac - History obtained from History obtained from: Patient - Additional information Additional information: The patient comes to the emergency department chief complaint of palpitations. He states he had felt some chest tightness and went to take his blood pressure and noticed that his heart was beating around 130. The patient has a history of episodes like this previously and actually wore a Holter monitor last year to try to further determine what was going on. He was found to have a number of episodes of atrial tachycardia with rates reaching up to the 130s, but also a number of episodes of palpitations where he was in normal sinus rhythm. He also had frequent PVCs at times. The patient states that he is feeling little better now, but that the symptoms did persist for a couple of hours. The patient denies actual chest pain or shortness of breath during the episode. 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 The patient states that he is on lisinopril but he has been making some lifestyle changes to try to combat his diabetes, high blood pressure, and obesity, and he states that his blood pressures have been running a lot lower than they were and sometimes his systolic is below 100. No other complaints at this time. PD PAST MEDICAL HISTORY - Past Medical History Past Medical History: Yes Cardiovascular: None, High cholesterol Respiratory: None Endocrine/Autoimmune: Type 2 diabetes GI: Other : Renal insuffiency HEENT: None Psych: Anxiety, Other Musculoskeletal: Other Derm: None - Past Surgical History Past Surgical History: No - Present Medications Home Medications: Ambulatory Orders Medication Instructions Recorded Confirmed Insulin Lispro [Humalog] See Rx Instructions .ROUTE .COMPLEX 05/18/20 07/17/22 Quetiapine Fumarate [Seroquel Xr] 1 tab PO DAILY 05/18/20 07/17/22 lisinopriL [Lisinopril] 1 tab PO DAILY 05/18/20 07/17/22 Atorvastatin Calcium See Rx Instructions .ROUTE .COMPLEX 06/12/22 07/17/22 Insulin Detemir [Levemir] See Rx Instructions .ROUTE .COMPLEX 06/12/22 07/17/22 Mirtazapine See Rx Instructions .ROUTE .COMPLEX 04/19/23 05/24/23 - Allergies Allergies/Adverse Reactions: Allergies Allergy/AdvReac Type Severity Reaction Status Date / Time Sulfa (Sulfonamide Allergy Unknown Verified 07/22/22 00:01 Antibiotics) - Social History Does the pt smoke?: No Smoking Status: Never smoker Does the pt drink ETOH?: Yes Does the pt have substance abuse?: No - Immunizations Immunizations are current?: No - POLST Patient has POLST: No PD ED PE NORMAL - Vitals Vital signs reviewed: Yes - General General: Alert and oriented X 3, No acute distress, Well developed/nourished - HEENT HEENT: Atraumatic, PERRL, EOMI, Moist mucous membranes - Neck Neck: Supple, no meningeal sign - Cardiac Cardiac: No murmur, Strong equal pulses, Other (Tachycardic rate with regular rhythm) - Respiratory Respiratory: No respiratory distress, Clear bilaterally - Abdomen Abdomen: Soft, Non tender, Non distended - Derm Derm: Normal color, Warm and dry, No rash - Extremities Extremities: No deformity, Other (Moderate edema of left ankle, no edema of right ankle) - Neuro Neuro: Alert and oriented X 3, councilperson 2-12 intact, Normal speech - Psych Psych: Normal mood, Normal affect Results - Vitals Vitals: Vital Signs - 24 hr 07/21/22 07/22/22 07/22/22 23:59 00:33 02:10 Temperature 36.5 C Heart Rate 124 H 106 H 79 Respiratory 27 H 14 16 Rate Blood Pressure 101/63 91/61 112/65 O2 Saturation 99 96 100 07/22/22 02:32 Temperature Heart Rate 74 Respiratory 14 Rate Blood Pressure 100/61 O2 Saturation 100 Oxygen O2 Source Room air - EKG (time done) 0026 EKG releavant findings:: EKG personally interpreted by author of this note. Relevant findings are: Rate: Rate (enter#) (106) Rhythm: Sinus tachycardia [place]: Anterior hemiblock Intervals: RBBB QRS: LVH (By voltage) Ischemia: Non specific changes Compare to prior EKG: Old EKG unavailable Computer interpretation: Agree with computer - Labs Labs: Laboratory Tests 07/22/22 07/22/22 07/22/22 00:10 00:10 00:10 WBC 8.3 RBC 4.48 L Hgb 12.3 L Hct 39.2 L MCV 87.5 MCH 27.5 MCHC 31.4 L RDW 13.5 Plt Count 299 MPV 10.2 Neut # (Auto) 6.4 Lymph # (Auto) 1.2 L [place] # (Auto) 0.5 Eos # (Auto) 0.1 Baso # (Auto) 0.1 Absolute Nucleated RBC 0.00 Nucleated RBC % 0.0 D-Dimer Sodium 134 L Potassium 4.2 Chloride 104 Carbon Dioxide 24 Anion Gap 6.0 BUN 21 H Creatinine 1.9 H Estimated GFR (MDRD) 37 L Glucose 283 H Calcium 9.5 Total Bilirubin 0.4 AST 20 ALT 28 Alkaline Phosphatase 96 Troponin I High Sens 25.8 H* Total Protein 7.9 Albumin 4.3 Globulin 3.6 Albumin/Globulin Ratio 1.2 Lipase 64 H 07/22/22 07/22/22 00:10 01:55 WBC RBC Hgb Hct MCV MCH MCHC RDW Plt Count MPV Neut # (Auto) Lymph # (Auto) [place] # (Auto) Eos # (Auto) Baso # (Auto) Absolute Nucleated RBC Nucleated RBC % D-Dimer 219.5 Sodium Potassium Chloride Carbon Dioxide Anion Gap BUN Creatinine Estimated GFR (MDRD) Glucose Calcium Total Bilirubin AST ALT Alkaline Phosphatase Troponin I High Sens 27.3 H* Total Protein Albumin Globulin Albumin/Globulin Ratio Lipase PD Medical Decision Making - ED course Complexity details: reviewed old records, reviewed results, re-evaluated patient, considered differential, d/w patient ED course: I reviewed the patient's old records including his event monitoring summary and his echocardiogram. The patient appeared fairly well but he did still have a heart rate ranging from the low 100s to the 120s, though this did's appear to be a sinus rhythm, and I felt that he should be worked up. The patient was evaluated with EKG, chest x-ray, CBC, ER abdominal panel, and troponin. I also suspected that dehydration may play somewhat of a role in the patient's tachycardia and his borderline hypotension here in the ED, as patient otherwise appeared fairly well. I did start a liter of 0.9 normal saline on the patient. His labs were fairly unremarkable except for his troponin which was 25. I did do a 2-hour repeat and found that had only gone up to 27 and I did not feel this represented an AL. I reevaluated the patient after he received his IV fluids and he was doing much better. His heart rate had come down to the 70s to 80s and normal sinus rhythm and his blood pressure was normal in the 100's to 110's. Systolic. I felt the patient was stable for discharge home. 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 We have discussed the usual indications for return. Departure - Departure Disposition: Home, Self Care Clinical Impression: Tachycardia, Dehydration Condition: Stable Instructions: Tachycardia, ED Dehydration Comments: Your labs overall look fairly good. Your cardiac enzymes were slightly high, but they were stable between the 2 levels, indicating that this likely does not represent a heart attack. Your heart rate did not improve with IV fluids, and most likely, you were somewhat dehydrated. However, given the low pressures that you have been having, it would probably also be helpful, along with drinking more water, to cut your lisinopril dose down. Since you are on 20 mg at this time, perhaps you could consider cutting your dose down to 10 mg. Please call your doctor's office to be sure that they are okay with this plan for the longer term, as well. Please keep the appointment that you have scheduled with your doctor, unless you begin to have more frequent episodes of palpitations and tachycardia again. You should also talk to cardiology to find out if they have any further recommendations.
== END 2022-07-22 02:55 | disposition home or self-care (01) ==
LOC: ED 23:52
DX: R00.0 Tachycardia, unspecified (principal); E86.0 Dehydration; E78.00 Pure hypercholesterolemia, unspecified; E11.9 Type 2 diabetes mellitus without complications; E66.9 Obesity, unspecified; Z79.899 Other long term (current) drug therapy; Z79.4 Long term (current) use of insulin
CPT/HCPCS: 36415; 80053; 83690; 84484; 85025; 85379; 93005; 96360; 99283

== ENCOUNTER 2022-07-27 05:00 | Emergency (ER) | payer MEDICAID ==
[2022-07-27 05:25] VITALS: BP 116/80
--- NOTE | 2022-07-27 05:57 | ED Physician Documentation ---
History of Present Illness - Stated complaint Stated Complaint: SLEEPING ISSUES - Chief complaint Chief Complaint: General - History obtained from History obtained from: Patient - History of Present Illness Timing: Chronic Pain level max: 0 Pain level now: 0 - Additonal information Additional information: 51-year-old male states that he has chronic insomnia. He states he recently tapered off Suboxone. He had been on this for about 3 years. He states he has not been able to sleep in 3 days. He started Remeron yesterday, states that this is not helping. He is also on Seroquel. No fevers. No chills. No trauma. No hallucinations. He also has sleep apnea and uses CPAP. Review of Systems Constitutional: denies: Fever Skin: denies: Rash Neurologic: denies: Headache PD PAST MEDICAL HISTORY - Past Medical History Cardiovascular: None Respiratory: None Endocrine/Autoimmune: Type 2 diabetes GI: Other : None, Renal insuffiency HEENT: None Psych: Anxiety, Other Musculoskeletal: Other Derm: None - Past Surgical History Past Surgical History: No - Present Medications Home Medications: Ambulatory Orders Medication Instructions Recorded Confirmed Insulin Lispro [Humalog] See Rx Instructions .ROUTE .COMPLEX 05/18/20 07/17/22 Quetiapine Fumarate [Seroquel Xr] 1 tab PO DAILY 05/18/20 07/17/22 lisinopriL [Lisinopril] 1 tab PO DAILY 05/18/20 07/17/22 Atorvastatin Calcium See Rx Instructions .ROUTE .COMPLEX 06/12/22 07/17/22 Insulin Detemir [Levemir] See Rx Instructions .ROUTE .COMPLEX 06/12/22 07/17/22 Mirtazapine See Rx Instructions .ROUTE .COMPLEX 06/12/22 07/17/22 ALPRAZolam [Xanax] 0.25 mg PO HS PRN #3 tablet 07/27/22 - Allergies Allergies/Adverse Reactions: Allergies Allergy/AdvReac Type Severity Reaction Status Date / Time Sulfa (Sulfonamide Allergy Unknown Verified 07/22/22 00:01 Antibiotics) - Social History Does the pt smoke?: No Smoking Status: Never smoker Does the pt drink ETOH?: Yes Does the pt have substance abuse?: No - Immunizations Immunizations are current?: No - POLST Patient has POLST: No PD ED PE NORMAL - Vitals Vital signs reviewed: Yes (T 36.7C) - General General: Alert and oriented X 3, No acute distress - HEENT HEENT: Moist mucous membranes - Neck Neck: Supple, no meningeal sign - Cardiac Cardiac: RRR - Respiratory Respiratory: No respiratory distress, Clear bilaterally - Derm Derm: Warm and dry - Neuro Neuro: Alert and oriented X 3 - Psych Psych: Normal mood, Normal affect Results - Vitals Vitals: Vital Signs - 24 hr 07/27/22 05:22 Heart Rate 108 H Respiratory 17 Rate Blood Pressure 116/80 O2 Saturation 99 Oxygen O2 Source Room air PD Medical Decision Making - ED course Complexity details: considered differential, d/w patient ED course: Patient with chronic insomnia, and recently started on Remeron. We will write 3 pills of very low-dose Xanax. He states this is helped in the past. I discussed that we do not routinely use benzodiazepines for sleep. Recommend that he speak with his Suboxone provider regarding whether the cessation of Suboxone could be contributing to his worsening insomnia. Patient may benefit from a longer taper. No emergency medical condition at this time. Patient counseled regarding signs and symptoms for which I believe and urgent re- evaluation would be necessary. Patient with good understanding of and agreement to plan and is comfortable going home at this time This document was made in part using voice recognition software. While efforts are made to proofread this document, sound alike and grammatical errors may occur. Departure - Departure Disposition: 01 Home, Self Care Clinical Impression: Insomnia Qualifiers: Insomnia type: unspecified Qualified Code(s): G47.00 - Insomnia, unspecified Condition: Good Instructions: Insomnia, Insomnia Tx, ED Insomnia Follow-Up: Enrike Ayala MD [Primary Care Provider] - Within 1 week Prescriptions: ALPRAZolam [Xanax] 0.25 mg PO HS PRN #3 tablet PRN Reason: sleep Comments: Your prescription was sent to [facility] in [place]. Please follow-up with your doctor for further care. Please return if you worsen. I would recommend speaking to your prescribing physician about a longer Suboxone taper. Discharge Date/Time: 07/27/22 06:00
== END 2022-07-27 06:00 | disposition home or self-care (01) ==
LOC: ED 05:00
DX: G47.00 Insomnia, unspecified (principal)
CPT/HCPCS: 99281; 99283

== ENCOUNTER 2022-09-15 20:28 | Outpatient (CLI) | payer MEDICAID | END 2022-09-15 20:29 | disposition home or self-care (01) | LOC: SC 20:28 | PROVIDERS: ATTEND Nurse Practitioner Family | DX: G47.31 Primary central sleep apnea (principal) | CPT/HCPCS: 95811 ==

== ENCOUNTER 2022-10-08 15:30 | Outpatient (CLI) | payer MEDICAID ==
--- NOTE | 2022-10-08 15:31 | SLEEP CARE CONSULTATION ---
Information from patient questionnaire entered by Yessi Lombardo. I have reviewed and concur with the information entered by Yessi Lombardo. This document represents the service I personally performed and the decisions made by , Lucila Lal ARNP. History of Present Illness Service Date and Time: 10/08/2022 1540 Initial [place] Sleepiness Scale score: 6 (06/12/22) Current [place] Sleepiness Scale score: 1 (10/08/22) Additional HPI information: CAROLINE SMALLS returns via video telehealth visit for follow up of the sleep study with a manual BIPAP titration study performed on 09/15/2022. The patient was informed of the following polysomnography findings: CPAP was initiated at 6 cmH2O and titrated up to BiPAP S/T at 14/6 cmH2O and backup rate of 6 breaths per minute. None of the tested settings appeared to be optimal (AHI of 62.7 per hour on the final setting). Oxygen saturation was minimally low. The patient appeared to have tolerated positive airway pressure therapy fairly well. Positive airway pressure therapy is r ecommended using BiPAP S/T set at 14/8 cmH2O and backup rate of 8 breaths per minute. Sleep Study - Results Type of Sleep Study: Polysomnography (COMPLETED 07/01/22 F/U TITRATION COMPLETED ON 09/15/22) Prior sleep studies: Yes Year and Where: HERE Polysomnography/Home Sleep Study results: IMPRESSION: The quality of the study is good. CPAP was initiated at 6 cmH2O and titrated up to BiPAP S/T at 14/6 cmH2O and backup rate of 6 breaths per minute. None of the tested settings appeared to be optimal (AHI of 62.7 per hour on the final setting). Oxygen saturation was minimally low. The patient appeared to have tolerated positive airway pressure therapy fairly well. The patients sleep efficiency was normal. The sleep architecture was normal as well. There was no significant periodic leg movement of sleep. Cardiac rhythm was normal sinus rhythm without significant arrhythmia. No abnormal behavior (parasomnia) observed during the night. CONCLUSIONS and RECOMMENDATIONS: 1. Central sleep apnea (ICD-10 G47.31), very severe (AHI was 70.9), not adequately controlled with BiPAP S/T at 14/6 cmH2O with backup rate of 6 breaths per minute. Positive airway pressure therapy is recommended using BiPAP S/T set at 14/8 cmH2O and backup rate of 8 breaths per minute. Allergies and Home Medications Known drug allergies: Yes (Sulfa) Drug allergies reviewed: Yes Home medication list reviewed: Yes (Ramelteon 8 mg nightly for sleep) Allergy and home medication list: Allergies Sulfa (Sulfonamide Antibiotics) Allergy (Verified 10/08/22 08:22) Unknown Review of Systems Review of systems same as previous: Yes (no changes) Physical Exam Vital signs obtained and entered by: YESSI Weathers MA Blood Pressure: 122/78 (PER PT) Height: 6 ft (PER PT) Weight: 280 lb (PER PT) Weight change since last visit: 10 lb loss Body Mass Index: 38.0 BMI Classification: Obese Impression and Plan 1. Central Sleep Apnea-Hypopnea Syndrome, very severe. He returns for results of titration study. While they were unable to obtain optimal pressure setting fo r control of his KYLIE, it is recommended that we start with BIPAP. The patient will be started on nasal BIPAP therapy with pressure set at 14/8 cmH2O with 8 breaths per minute backup. Compliance guidelines also reviewed. A copy of compliance guidelines will be given for reference at check out. 2. Obesity, unspecified. Currently patients BMI is 38. He has lost weight. Obesity increases the risk of apnea, CPAP pressure requirements and overall health risks especially cardiovascular and diabetes. Thus patient is advised to continue to try to lose weight. * Nasal auto BIPAP therapy, pressure at 14/8 cmH2O with 8 breaths per minute backup. * Attempt to lose weight. * Avoid alcohol consumption near bedtime. * Avoid supine sleep until using BIPAP. * The patient is again cautioned about driving until sleepiness completely resolves. * Return one month after BIPAP obtained. I will assess response to therapy and compliance at that time. Counseling Topics: Weight loss health impact Visit Type: Telehealth Video Video Type: Doximity Patient Location: Home Location of Provider: Office Patient agrees and consents to this telehealth visit type: Yes Patient agrees to have their insurance billed: Yes Time Spent with Patient (minutes): 23 Provider Statement: I spent 100% of the Telehealth Video Call with the patient with greater than 50% spent counseling the patient and coordination of care.
[2022-10-08 15:46] VITALS: BP 122/78
== END 2022-10-08 15:31 | disposition home or self-care (01) ==
LOC: SC 15:30
PROVIDERS: ATTEND Nurse Practitioner Family
DX: G47.31 Primary central sleep apnea (principal); E66.9 Obesity, unspecified; Z68.38 Body mass index [BMI] 38.0-38.9, adult

== ENCOUNTER 2023-09-10 16:01 | Emergency (ER) | payer SELFPAY ==
[2023-09-10 16:15] VITALS: O2SAT 98
--- NOTE | 2023-09-10 17:21 | ED Physician Documentation ---
PD HPI WOUND RECHECK - Stated complaint Stated Complaint: R FOOT INFECTION - Chief complaint Chief Complaint: Wound - Histroy obtained from History obtained from: Patient (52-year-old gentleman with type 2 diabetes and neuropathy presents for evaluation of an infection on the bottom of the right foot. He is not exactly sure how long it has been going on but is definitely getting worse and now he starting to feel mildly systemically ill from it.) PD PAST MEDICAL HISTORY - Past Medical History Past Medical History: Yes Cardiovascular: None Respiratory: None Endocrine/Autoimmune: Type 2 diabetes GI: Other : None, Renal insuffiency HEENT: None Psych: Anxiety, Other Musculoskeletal: Other Derm: None - Past Surgical History Past Surgical History: No - Present Medications Home Medications: Ambulatory Orders Medication Instructions Recorded Confirmed Insulin Lispro [Humalog] See Rx Instructions .ROUTE .COMPLEX 05/18/20 10/08/22 Quetiapine Fumarate [Seroquel Xr] 1 tab PO DAILY 05/18/20 10/08/22 lisinopriL [Lisinopril] 1 tab PO DAILY 05/18/20 10/08/22 Atorvastatin Calcium See Rx Instructions .ROUTE .COMPLEX 06/12/22 10/08/22 Insulin Detemir [Levemir] See Rx Instructions .ROUTE .COMPLEX 06/12/22 10/08/22 Mirtazapine See Rx Instructions .ROUTE .COMPLEX 06/12/22 10/08/22 ALPRAZolam [Xanax] 0.25 mg PO HS PRN #3 tablet 07/27/22 10/08/22 Amoxicillin 500 mg PO TID #30 cap 09/10/23 Doxycycline [Vibramycin] 100 mg PO BID #20 tablet 09/10/23 - Allergies Allergies/Adverse Reactions: Allergies Allergy/AdvReac Type Severity Reaction Status Date / Time No Known Drug Allergies Allergy Verified 09/10/23 16:08 - Social History Does the pt smoke?: No Smoking Status: Never smoker Does the pt drink ETOH?: Yes Does the pt have substance abuse?: No - Immunizations Immunizations are current?: No - POLST Patient has POLST: No PD ED PE NORMAL - Vitals Vital signs reviewed: Yes - General General: Alert and oriented X 3, No acute distress - HEENT HEENT: PERRL, EOMI - Neck Neck: Supple, no meningeal sign, No bony TTP - Cardiac Cardiac: RRR, No murmur - Respiratory Respiratory: No respiratory distress, Clear bilaterally - Abdomen Abdomen: Non tender - Extremities Extremities: Other (There is a deep large necrotic ulcer on the bottom of the right foot kind of over the distal fourth metatarsal area that probes deep with wound culture on initial evaluation.) - Neuro Neuro: Alert and oriented X 3, Normal speech - Psych Psych: Normal mood, Normal affect Results - Vitals Vitals: Vital Signs - 24 hr 09/10/23 09/10/23 16:08 18:04 Temperature 36.5 C 36.2 C L Heart Rate 73 76 Respiratory 16 18 Rate Blood Pressure 159/83 H 155/9 H O2 Saturation 98 98 Oxygen O2 Source Room air - Labs Labs: Microbiology 09/10/23 17:10 Wound Culture - Preliminary Foot - Right Laboratory Tests 09/10/23 09/10/23 09/10/23 17:30 17:30 17:30 WBC 9.1 RBC 4.36 L Hgb 12.2 L Hct 39.3 L MCV 90.1 MCH 28.0 MCHC 31.0 L RDW 15.1 H Plt Count 350 MPV 10.1 Neut # (Auto) 6.8 H Lymph # (Auto) 1.3 L [place] # (Auto) 0.8 Eos # (Auto) 0.2 Baso # (Auto) 0.1 Absolute Nucleated RBC 0.00 Nucleated RBC % 0.0 ESR 45 H Sodium 135 Potassium 5.0 H Chloride 102 Carbon Dioxide 28 Anion Gap 5.0 L BUN 23 H Creatinine 1.5 H Estimated GFR (MDRD) 49 L Glucose 124 H Calcium 9.5 Total Bilirubin 0.3 AST 18 ALT 19 Alkaline Phosphatase 67 C-Reactive Protein 4.9 H Total Protein 7.8 Albumin 4.2 Globulin 3.6 Albumin/Globulin Ratio 1.2 - Rads (name of study) R foot 3v Relevant Findings:: Final report received, EMP independent interpretation of test PD Medical Decision Making - ED course ED course: He has a diabetic foot infection with a deep ulcer on the bottom of the right foot at the level of the fourth distal metatarsal. A culture was taken. An x- ray was done and I do not see any sign of osteomyelitis. He has a white count of 9.1 with otherwise unremarkable CBC save for mild chronic anemia. He is placed on amoxicillin and doxycycline per review of up-to-date guidelines. CRP only modestly elevated. He does have some kidney disease. X-ray not demonstrating osteomyelitis. Departure - Departure Disposition: 01 Home, Self Care Clinical Impression: Diabetic foot infection Condition: Good Record reviewed to determine appropriate education?: Yes Instructions: Diabetic Foot Ulcer Dc, ED Foot Care Diabetic Prescriptions: Amoxicillin 500 mg PO TID #30 cap Doxycycline [Vibramycin] 100 mg PO BID #20 tablet Comments: I sent your prescriptions electronically to [facility] in [place]. Follow-up with Dr. Ayala for consideration for referral to wound care. Return for new or worsening symptoms. Elevate the foot, keep it clean and dry. Forms: PCP List Discharge Date/Time: 09/10/23 18:04
[2023-09-10 17:38] LABS: BASOPHILS # (AUTO) 0.1 10^3/uL (0.0-0.1); BASOPHILS % (AUTO) 0.7 %; EOSINOPHILS # (AUTO) 0.2 10^3/uL (0.0-0.7); EOSINOPHILS % (AUTO) 1.9 %; HCT - HEMATOCRIT 39.3 % (42.0-52.0); HGB - HEMOGLOBIN 12.2 g/dL (14.0-18.0); LYMPHOCYTES # (AUTO) 1.3 10^3/uL (1.5-3.5); LYMPHOCYTES % (AUTO) 13.8 %; MEAN CORPUSCULAR VOLUME 90.1 fL (80.0-94.0); MEAN PLATELET VOLUME 10.1 fL (7.4-11.4); MONOCYTES # (AUTO) 0.8 10^3/uL (0.0-1.0); MONOCYTES % (AUTO) 9.1 %; NEUTROPHILS # (AUTO) 6.8 10^3/uL (1.5-6.6); NEUTROPHILS % (AUTO) 74.3 %; PLT - PLATELET COUNT 350 10^3/uL (130-450); RED BLOOD COUNT 4.36 10^6/uL (4.70-6.10); RED CELL DISTRIBUTION WIDTH 15.1 % (12.0-15.0); WHITE BLOOD COUNT 9.1 x10^3/uL (4.8-10.8)
[2023-09-10 17:56] LABS: ALBUMIN 4.2 g/dL (3.2-5.5); ALBUMIN/GLOBULIN RATIO 1.2 (1.0-2.2); BILIRUBIN,TOTAL 0.3 mg/dL (0.2-1.0); CALCIUM 9.5 mg/dL (8.5-10.3); CREATININE 1.5 mg/dL (0.6-1.3); CRP - C-REACTIVE PROTEIN 4.9 mg/dL (<0.5); TOTAL PROTEIN 7.8 g/dL (6.4-8.9)
[2023-09-10 18:05] VITALS: BP 155/9
--- NOTE | 2023-09-10 18:48 | XRAY Report ---
PROCEDURE: Foot 3+V RT INDICATIONS: foot infection under 2nd MTP TECHNIQUE: 3 views of the foot were acquired. COMPARISON: None. FINDINGS: Bones: No fractures or dislocations. No suspicious bony lesions. Plantar calcaneal enthesophyte. Soft tissues: No tibiotalar joint effusion. Achilles tendon appears normal. Soft tissue ulceration along the plantar surface of the forefoot. IMPRESSION: Plantar ulceration of the forefoot without bony erosion. Reviewed by: Escobar Irby MD on 09/10/2023 5:47 PM MARANDA Approved by: Escobar Irby MD on 09/10/2023 5:47 PM MARANDA Station ID: [id number]
--- NOTE | 2023-09-12 13:42 | ED Physician Documentation ---
ED Addendum - Addendum Addendum: 09/12/23 13:42 Culture reviewed, the doxycycline and amoxicillin should be adequate/appropriate for the combination of isolates obtained from the culture.
--- NOTE | 2023-09-14 12:36 | ED Physician Documentation ---
ED Addendum - Addendum Addendum: 09/14/23 12:35 Now second isolate positive for pseudomonas stutzeri. I called pt and will stop amox/doxy and rx cipro 500mg po bid #20 to gerald and he voices understanding. says foot is improving.
== END 2023-09-10 18:04 | disposition home or self-care (01) ==
LOC: ED 16:01
DX: E11.621 Type 2 diabetes mellitus with foot ulcer (principal); L97.418 Non-pressure chronic ulcer of right heel and midfoot with other specified severity; B96.5 Pseudomonas (aeruginosa) (mallei) (pseudomallei) as the cause of diseases classified elsewhere; E11.29 Type 2 diabetes mellitus with other diabetic kidney complication; N28.9 Disorder of kidney and ureter, unspecified
CPT/HCPCS: 36415; 80053; 85025; 85651; 86140; 87040; 87070; 87077; 87181; 87205; 99284

== ENCOUNTER 2023-10-12 20:08 | Emergency (ER) | payer SELFPAY ==
[2023-10-12 20:20] VITALS: BP 147/68; O2SAT 99
--- NOTE | 2023-10-12 20:23 | ED Physician Documentation ---
History of Present Illness - Stated complaint Stated Complaint: R FOOT INFECTION - Chief complaint Chief Complaint: Ext Problem - Additonal information Additional information: Patient is a 53-year-old male presenting to the emergency department with right foot wound. Patient notes about 3 to 4 days ago he developed pain and wound to his right foot opened up. Patient was seen for this multiple times back in August and had his antibiotics changed with culture results. Patient symptoms improved after ciprofloxacin. He notes wound healed well and he has follow-up with wound care but has not been able to see them. He denies any fevers no worsening swelling no streaking or redness going up the leg. He does note redness to his second and third digits of his right foot with mild erythema that does extend to midfoot. He notes this has progressively worsened over the last 2 days as well. Patient is a diabetic But is not currently taking medications as he has not well under control with diet and exercise. PD PAST MEDICAL HISTORY - Past Medical History Past Medical History: Yes Cardiovascular: None Respiratory: None Endocrine/Autoimmune: Type 2 diabetes GI: Other : None, Renal insuffiency HEENT: None Psych: Anxiety, Other Musculoskeletal: Other Derm: None - Past Surgical History Past Surgical History: No - Present Medications Home Medications: Ambulatory Orders Medication Instructions Recorded Confirmed Insulin Lispro [Humalog] See Rx Instructions .ROUTE .COMPLEX 05/18/20 10/08/22 Quetiapine Fumarate [Seroquel Xr] 1 tab PO DAILY 05/18/20 10/08/22 lisinopriL [Lisinopril] 1 tab PO DAILY 05/18/20 10/08/22 Atorvastatin Calcium See Rx Instructions .ROUTE .COMPLEX 06/12/22 10/08/22 Insulin Detemir [Levemir] See Rx Instructions .ROUTE .COMPLEX 06/12/22 10/08/22 Mirtazapine See Rx Instructions .ROUTE .COMPLEX 06/12/22 10/08/22 ALPRAZolam [Xanax] 0.25 mg PO HS PRN #3 tablet 07/27/22 10/08/22 Amoxicillin 500 mg PO TID #30 cap 09/10/23 Doxycycline [Vibramycin] 100 mg PO BID #20 tablet 09/10/23 Ciprofloxacin HCl [Cipro] 500 mg PO BID #20 tablet 09/14/23 Ciprofloxacin HCl [Cipro] 500 mg PO BID #28 tablet 10/12/23 traMADol [Ultram] 50 mg PO Q4-6H #6 tablet 10/12/23 - Allergies Allergies/Adverse Reactions: Allergies Allergy/AdvReac Type Severity Reaction Status Date / Time No Known Drug Allergies Allergy Verified 10/12/23 20:10 - Social History Does the pt smoke?: No Smoking Status: Never smoker Does the pt drink ETOH?: Yes Does the pt have substance abuse?: No - Immunizations Immunizations are current?: No - POLST Patient has POLST: No PD ED PE NORMAL - Vitals Vital signs reviewed: Yes - General General: Alert and oriented X 3 - HEENT HEENT: Atraumatic - Neck Neck: Supple, no meningeal sign - Cardiac Cardiac: RRR, No murmur, No gallop, No rub - Respiratory Respiratory: No respiratory distress - Abdomen Abdomen: Normal bowel sounds - Male Male : Deferred - Rectal Rectal: Deferred - Back Back: No CVA TTP - Derm Derm: Normal color - Extremities Extremities: No deformity, Other (Patient has erythema to digits 2 and 3 with ulcer to plantar region no significant discharge no surrounding crepitus no signs of fluctuance and no streaking up the leg.) - Neuro Neuro: Alert and oriented X 3 Eye Opening: Spontaneous Motor: Obeys Commands Verbal: Oriented GCS Score: 15 Results - Vitals Vitals: Vital Signs - 24 hr 10/12/23 20:11 Temperature 36.8 C Heart Rate 96 Respiratory 16 Rate Blood Pressure 147/68 H O2 Saturation 99 Oxygen O2 Source Room air - Labs Labs: Laboratory Tests 10/12/23 10/12/23 10/12/23 20:50 20:50 20:50 WBC 12.7 H RBC 4.06 L Hgb 11.4 L Hct 36.1 L MCV 88.9 MCH 28.1 MCHC 31.6 L RDW 14.8 Plt Count 293 MPV 10.2 Neut # (Auto) 11.0 H Lymph # (Auto) 0.6 L [place] # (Auto) 0.8 Eos # (Auto) 0.2 Baso # (Auto) 0.1 Absolute Nucleated RBC 0.00 Nucleated RBC % 0.0 ESR 36 H Sodium 137 Potassium 4.7 H Chloride 108 Carbon Dioxide 23 Anion Gap 6.0 BUN 27 H Creatinine 1.8 H Estimated GFR (MDRD) 40 L Glucose 195 H Calcium 8.8 Total Bilirubin 0.4 AST 13 ALT 17 Alkaline Phosphatase 78 C-React Prot High Sens Cancelled Total Protein 6.9 Albumin 3.6 Globulin 3.3 Albumin/Globulin Ratio 1.1 PD Medical Decision Making - ED course Complexity details: reviewed old records, reviewed results ED course: Patient is a 53-year-old male presenting to the emergency department with right foot wound. Patient notes symptoms started about 3 to 4 days ago and progressively worsened with redness extending to digits 2 and 3 on right foot. Patient notes no fevers but redness has increased in size up his leg. Patient denies any recent antibiotic use. He was seen for similar foot infection back last month and was treated with ciprofloxacin after cultures grew Pseudomonas. Patient notes this seemed to help his symptoms and ulcer at the plantar region of his right foot resolved. Vital stable on arrival. Patient is afebrile nontachycardic. Physical exam shows erythema to 2 digits 2 and 3 with ulcer noted to plantar ration of distal portion of right foot under digits 2 and 3 of right foot. No palpable fluctuance no discharge from the wound. Good sensation intact to digits on right foot. Good capillary refill and pulses 2+. Full range of motion of digits and ankle and right knee intact. Basic labs obtained here in the emergency department show mild leukocytosis and slight elevation in ESR and culture obtained here in emergency department. Patient x-ray obtained shows no signs of osteomyelitis. Discussed with patient given reassuring findings on x-ray he is safe for discharge home at this time however if he develops any fevers worsening pain streaking up his leg fevers or discharge from the wound he should return to the emergency department immediately. Patient given postop shoe elevation crutches and instructed to stay off foot to prevent worsening ulcer. Patient understands and is agreeable with this plan. A line was drawn around the erythema and pictures obtaine. Patient will follow-up with podiatry in the outpatient setting. Departure - Departure Disposition: 01 Home, Self Care Condition: Good Follow-Up: Viviana Doran DPM [Provider Admit Priv/Credential] - Comments: You are seen here in the emergency department for your right foot wound. Your workup here showed most likely right foot infection. No signs of infection to the bone at this point. I have started you on antibiotics that seem to work well for your infection about a month ago. I have given you a postop shoe and wrapped it here in the emergency department you can use topical antibiotic at home as well. Watch for any worsening pain swelling fevers or extension of redness up right foot or streaking. If you develop any of these or worsening symptoms return immediately to the emergency department.I have given you a referral to podiatry these are foot doctors that you should follow-up with. Do not cancel your appointment with wound care as you should follow-up with them as well. Forms: PCP List
[2023-10-12 20:59] LABS: BASOPHILS # (AUTO) 0.1 10^3/uL (0.0-0.1); BASOPHILS % (AUTO) 0.4 %; EOSINOPHILS # (AUTO) 0.2 10^3/uL (0.0-0.7); EOSINOPHILS % (AUTO) 1.3 %; HCT - HEMATOCRIT 36.1 % (42.0-52.0); HGB - HEMOGLOBIN 11.4 g/dL (14.0-18.0); LYMPHOCYTES # (AUTO) 0.6 10^3/uL (1.5-3.5); LYMPHOCYTES % (AUTO) 4.8 %; MEAN CORPUSCULAR HEMOGLOBIN 28.1 pg (27.0-31.0); MEAN CORPUSCULAR HGB CONC 31.6 g/dL (32.0-36.0); MEAN CORPUSCULAR VOLUME 88.9 fL (80.0-94.0); MEAN PLATELET VOLUME 10.2 fL (7.4-11.4); MONOCYTES # (AUTO) 0.8 10^3/uL (0.0-1.0); MONOCYTES % (AUTO) 6.4 %; NEUTROPHILS % (AUTO) 86.8 %; PLT - PLATELET COUNT 293 10^3/uL (130-450); RED BLOOD COUNT 4.06 10^6/uL (4.70-6.10); RED CELL DISTRIBUTION WIDTH 14.8 % (12.0-15.0); WHITE BLOOD COUNT 12.7 x10^3/uL (4.8-10.8)
[2023-10-12 21:17] LABS: ALBUMIN 3.6 g/dL (3.2-5.5); ALBUMIN/GLOBULIN RATIO 1.1 (1.0-2.2); BILIRUBIN,TOTAL 0.4 mg/dL (0.2-1.0); CALCIUM 8.8 mg/dL (8.5-10.3); CREATININE 1.8 mg/dL (0.6-1.3); POTASSIUM 4.7 mmol/L (3.5-4.5); TOTAL PROTEIN 6.9 g/dL (6.4-8.9)
--- NOTE | 2023-10-12 21:19 | XRAY Report ---
PROCEDURE: Foot 3+V RT INDICATIONS: concern for foot infection TECHNIQUE: 3 views of the foot were acquired. COMPARISON: 09/10/2023. FINDINGS: Bones: No fractures or dislocations. Old fracture deformity of the proximal fifth phalanx. No suspi cious bony lesions. Mild posterior and plantar enthesophytes. Soft tissues: No tibiotalar joint effusion. Achilles tendon appears normal. IMPRESSION: No evidence of bony erosion. Reviewed by: Iain Gama MD on 10/12/2023 9:18 PM PDT Approved by: Iain Gama MD on 10/12/2023 9:18 PM PDT Station ID: [id number]
[2023-10-12] MEDS: CIPROFLOXACIN 250 MG TABLET PO STA (21:46)
--- NOTE | 2023-10-15 12:22 | ED Physician Documentation ---
ED Addendum - Addendum Addendum: 10/15/23 12:22 Culture reviewed, staff aureus, not MRSA. He was put on ciprofloxacin to which it is sensitive. No further action necessary.
== END 2023-10-12 21:59 | disposition home or self-care (01) ==
LOC: ED 20:08
DX: E11.621 Type 2 diabetes mellitus with foot ulcer (principal); L97.519 Non-pressure chronic ulcer of other part of right foot with unspecified severity; A49.01 Methicillin susceptible Staphylococcus aureus infection, unspecified site; D72.829 Elevated white blood cell count, unspecified; L53.9 Erythematous condition, unspecified; Z79.4 Long term (current) use of insulin; Z79.899 Other long term (current) drug therapy
CPT/HCPCS: 36415; 73630; 80053; 85025; 85651; 86140; 87070; 87181; 87205; 99283; 99284; A9270; 86141

== ENCOUNTER 2023-10-23 23:36 | Emergency (ER) | payer SELFPAY ==
--- NOTE | 2023-10-24 00:08 | XRAY Report ---
PROCEDURE: Foot 3+V RT INDICATIONS: assess for bony infection TECHNIQUE: 3 views of the foot were acquired. COMPARISON: 10/12/2023, 09/10/2023 FINDINGS: Bones: New bony erosion at the base of the second proximal phalanx. Age-indeterminate fracture of the fifth proximal phalanx shaft. Soft tissues: No tibiotalar joint effusion. Achilles tendon appears normal. IMPRESSION: New bony erosion at the base of the second proximal phalanx, concerning for osteomyelitis. Reviewed by: Escobar Irby MD on 10/24/2023 12:07 AM PDT Approved by: Escobar Irby MD on 10/24/2023 12:07 AM PDT Station ID: [id number]
[2023-10-24 00:12] LABS: BASOPHILS # (AUTO) 0.1 10^3/uL (0.0-0.1); BASOPHILS % (AUTO) 0.5 %; EOSINOPHILS # (AUTO) 0.2 10^3/uL (0.0-0.7); EOSINOPHILS % (AUTO) 1.9 %; HCT - HEMATOCRIT 35.5 % (42.0-52.0); HGB - HEMOGLOBIN 10.9 g/dL (14.0-18.0); MEAN CORPUSCULAR HEMOGLOBIN 27.4 pg (27.0-31.0); MEAN CORPUSCULAR HGB CONC 30.7 g/dL (32.0-36.0); MEAN CORPUSCULAR VOLUME 89.2 fL (80.0-94.0); MEAN PLATELET VOLUME 9.5 fL (7.4-11.4); MONOCYTES # (AUTO) 0.6 10^3/uL (0.0-1.0); MONOCYTES % (AUTO) 5.7 %; NEUTROPHILS # (AUTO) 8.9 10^3/uL (1.5-6.6); NEUTROPHILS % (AUTO) 82.3 %; PLT - PLATELET COUNT 475 10^3/uL (130-450); RED BLOOD COUNT 3.98 10^6/uL (4.70-6.10); RED CELL DISTRIBUTION WIDTH 14.6 % (12.0-15.0); WHITE BLOOD COUNT 10.8 x10^3/uL (4.8-10.8)
--- NOTE | 2023-10-24 00:29 | ED Physician Documentation ---
History of Present Illness - Stated complaint Stated Complaint: R FOOT INFECTION - Chief complaint Chief Complaint: Ext Problem - Additonal information Additional information: 53-year-old male with history of bipolar, diabetes presents with worsening right foot infection. He states that despite prior course of amoxicillin, doxycycline, and most recently nearly 14 days of ciprofloxacin, he is having worsening pain and redness at his right foot. He has an ulcer at the base of his distal right foot. He has redness creeping up his right foot. He denies fevers. He has pain in his right foot. Per chart review, he had staph aureus on culture recently. He has also grown Pseudomonas per recent ER notes. Patient denies any other new concerns beyond above. No nausea or vomiting, changes in bowels or bladder, new focal numbness or weakness, or rapidly spreading rash. No shortness of breath. No lightheadedness or syncope. ROS Constitutional: no fever, no chills Eyes: no visual disturbance, no discharge Ears, Nose, Mouth, Throat: no rhinorrhea, no sore throat Cardiovascular: no chest pain, no palpitations Respiratory: no cough, no shortness of breath Gastrointestinal: no abdominal pain, no vomiting, no diarrhea Genitourinary: no dysuria, no hematuria Musculoskeletal: no back pain, no neck stiffness Skin: +rash, wound Neurological: no focal weakness, no focal numbness PD PAST MEDICAL HISTORY - Past Medical History Past Medical History: Yes Cardiovascular: None Respiratory: None Endocrine/Autoimmune: Type 2 diabetes GI: Other : None, Renal insuffiency HEENT: None Psych: Anxiety, Other Musculoskeletal: Other Derm: None - Past Surgical History Past Surgical History: Yes - Present Medications Home Medications: Ambulatory Orders Medication Instructions Recorded Confirmed Insulin Lispro [Humalog] See Rx Instructions .ROUTE .COMPLEX 05/18/20 10/08/22 Quetiapine Fumarate [Seroquel Xr] 1 tab PO DAILY 05/18/20 10/08/22 lisinopriL [Lisinopril] 1 tab PO DAILY 05/18/20 10/08/22 Atorvastatin Calcium See Rx Instructions .ROUTE .COMPLEX 06/12/22 10/08/22 Insulin Detemir [Levemir] See Rx Instructions .ROUTE .COMPLEX 06/12/22 10/08/22 Mirtazapine See Rx Instructions .ROUTE .COMPLEX 06/12/22 10/08/22 ALPRAZolam [Xanax] 0.25 mg PO HS PRN #3 tablet 07/27/22 10/08/22 Amoxicillin 500 mg PO TID #30 cap 09/10/23 Doxycycline [Vibramycin] 100 mg PO BID #20 tablet 09/10/23 Ciprofloxacin HCl [Cipro] 500 mg PO BID #20 tablet 09/14/23 Ciprofloxacin HCl [Cipro] 500 mg PO BID #28 tablet 10/12/23 traMADol [Ultram] 50 mg PO Q4-6H #6 tablet 10/12/23 - Allergies Allergies/Adverse Reactions: Allergies Allergy/AdvReac Type Severity Reaction Status Date / Time No Known Drug Allergies Allergy Verified 10/23/23 23:38 - Social History Does the pt smoke?: No Smoking Status: Never smoker Does the pt drink ETOH?: Yes Does the pt have substance abuse?: No - Immunizations Immunizations are current?: No - POLST Patient has POLST: No PD ED PE NORMAL - Free text exam Free text exam: Const: no acute distress, non toxic appearing; calm, conversant, pleasant Eyes: PERRLA, EOMI ENT: mucous membranes moist Neck: supple, non-tender Resp: no respiratory distress, clear to auscultation bilaterally Card: regular rate and rhythm, no murmurs Abd: non tender diffusely, no rigidity or rebound or guarding Back: no T or L spine tenderness, no CVA tenderness bilaterally Extrem: no deformities, 1+ pitting edema to BLE, with few mm wound to distal volar R foot that does not probe to bone, with wound culture taken during my exam from this site; there is also distal foot blanching erythema, tender, without crepitus; chronically reduced distal sensation, strength is intact Neuro: ANOx4, dynamics ax consultant grossly intact, grossly baseline sensation and strength all extremities Skin: no rash, warm and dry Results - Vitals Vitals: Vital Signs - 24 hr 10/23/23 10/24/23 10/24/23 23:38 00:47 01:01 Temperature 36.5 C Heart Rate 73 77 67 Respiratory 16 16 18 Rate Blood Pressure 160/80 H 154/74 H 161/86 H O2 Saturation 99 99 97 Oxygen O2 Source Room air - Labs Labs: Laboratory Tests 10/23/23 10/23/23 10/23/23 23:59 23:59 23:59 WBC 10.8 RBC 3.98 L Hgb 10.9 L Hct 35.5 L MCV 89.2 MCH 27.4 MCHC 30.7 L RDW 14.6 Plt Count 475 H MPV 9.5 Neut # (Auto) 8.9 H Lymph # (Auto) 1.0 L [place] # (Auto) 0.6 Eos # (Auto) 0.2 Baso # (Auto) 0.1 Absolute Nucleated RBC 0.00 Nucleated RBC % 0.0 ESR 78 H Sodium 137 Potassium 4.3 Chloride 104 Carbon Dioxide 28 Anion Gap 5.0 L BUN 20 Creatinine 2.0 H Estimated GFR (MDRD) 35 L Glucose 154 H Calcium 8.9 Total Bilirubin 0.3 AST 20 ALT 18 Alkaline Phosphatase 75 C-Reactive Protein 3.7 H Total Protein 7.5 Albumin 3.7 Globulin 3.8 Albumin/Globulin Ratio 1.0 - Rads (name of study) Foot XR Relevant Findings:: EMP independent interpretation of test, See rad report (I agree with radiology reads of imaging on my independent review of imaging. ) PD Medical Decision Making - ED course ED course: This patients presentation is most suggestive of worsening of chronic diabetic foot ulcer with associated cellulitis and high likelihood of osteomyelitis. Patient currently afebrile, well-perfused, not septic appearing. This is not currently consistent with excising fasciitis or DVT. No acute trauma. I am obtaining CBC, CMP, blood cultures x 2, inflammatory markers, right foot x-ray. I anticipate giving vancomycin, Zosyn, fluids, Dilaudid. I am closely reassessing. I am all sending wound culture. Labs show CBC with no leukocytosis, though ESR and CRP elevated. Anemia to roughly 11, slightly decreased from prior. CMP with Cr 2, similar to prior, no LFT elevation. R foot XR with concern for osteomyelitis, as below, which I agree with on my review of imaging: "FINDINGS: Bones: New bony erosion at the base of the second proximal phalanx. Age- indeterminate fracture of the fifth proximal phalanx shaft. Soft tissues: No tibiotalar joint effusion. Achilles tendon appears normal. IMPRESSION: New bony erosion at the base of the second proximal phalanx, concerning for osteomyelitis. Reviewed by: Escobar Irby MD on 10/24/2023 12:07 AM PDT Approved by: Escobar Irby MD on 10/24/2023 12:07 AM PDT Station ID: [id number] Report Electronically Signed by Escobar Irby MD 10/24/23 0005 10/24/23 0007 " I spoke with Dr. Sheehan of hospitalist at 12:47AM, then warehouse unloader; this facility does not currently have appropriate Orthopedic/Podiatry for this patient, and we will need to transfer somewhere that does. I spoke with Dr. Sigala from [facility], who agrees with my treatment thus far and that patient should transfer. [facility] [place] working on finding hospitalist. [facility] working on finding transfer location. Patient stable. Ordering more dilaudid. Patient remains stable, updated him again at 0415. We are awaiting transfer location. Patient remains stable. Signing out at 0700 to oncoming AM physician with plan to serially reassess, continue antibiotics, and complete transfer when receiving facility able to accept. I have scheduled Zosyn 3.375g IV q6hrs with next dose at 0715. Departure - Departure Disposition: 02 Transfer Acute Care Hosp Clinical Impression: Osteomyelitis Qualifiers: Osteomyelitis type: unspecified type Osteomyelitis location: foot Laterality: right Qualified Code(s): M86.9 - Osteomyelitis, unspecified Condition: Stable Forms: PCP List
[2023-10-24 00:30] LABS: ALBUMIN 3.7 g/dL (3.2-5.5); BILIRUBIN,TOTAL 0.3 mg/dL (0.2-1.0); CALCIUM 8.9 mg/dL (8.5-10.3); CRP - C-REACTIVE PROTEIN 3.7 mg/dL (<0.5); POTASSIUM 4.3 mmol/L (3.5-4.5); TOTAL PROTEIN 7.5 g/dL (6.4-8.9)
[2023-10-24] MEDS: HYDROmorphone 1 MG/ML CARPUJECT IVP STA (01:05)
[2023-10-24] MEDS: SODIUM CHLORIDE 0.9% 1,000 ML IV STA ×2 (01:06→09:11)
[2023-10-24] MEDS: PIPERACILLIN/TAZOBACTAM 4.5 GM in SODIUM CHLORIDE 0.9% MINIBAG 100 ML IV STA (01:25)
[2023-10-24] MEDS ORDERED: VANCOMYCIN 1 GM VIAL ONE (02:18)
[2023-10-24] MEDS: VANCOMYCIN INJ 2 GM in SODIUM CHLORIDE 0.9% 500 ML IV SCH (02:20)
[2023-10-24] MEDS: HYDROmorphone 0.5 MG/0.5 ML SYRINGE IVP STA ×2 (04:56→09:11)
--- NOTE | 2023-10-24 09:09 | ED Physician Documentation ---
ED Addendum - Addendum Addendum: 10/24/23 09:08 Patient is signed out to me by Dr. Ambriz, awaiting transfer for osteomyelitis of the foot. We do not have orthopedics here available until next week. I evaluated the patient, he has been having pain on the right foot for about 5 weeks. Has been on oral antibiotics but failed to improve. Has been receiving IV antibiotics here. Given Dilaudid for pain. IV fluids continued. Will continue to board awaiting transfer. I discussed the case with Dr. Gomez, podiatry [facility] in [place]. He recommends transfer to the hospitalist service. He states he will consult. Discussed the case with Dr. Brown, transfer hospitalist who accepts in transfer. COBRA forms completed. Patient will be transferred to [facility] in [place] for further care.
[2023-10-24] MEDS: PIPERACILLIN/TAZOBACTAM 3.375 GM in SODIUM CHLORIDE 0.9% MINIBAG 100 ML IV SCH (09:12)
[2023-10-24 12:29] LABS: ESTIMATED AVERAGE GLUCOSE 160 mg/dL (70-100); HEMOGLOBIN A1c% 7.2 % (4.27-6.07)
[2023-10-24] MEDS: HYDROmorphone 0.5 MG/0.5 ML SYRINGE IVP PRN (14:21)
[2023-10-24 17:00] VITALS: BP 148/86; O2SAT 97
[2023-10-24] MEDS ORDERED: VANCOMYCIN INJ 1.5 GM in SODIUM CHLORIDE 0.9% 500 ML IV SCH (20:00)
== END 2023-10-24 16:52 | disposition short-term general hospital (02) ==
LOC: ED 23:36
DX: M86.9 Osteomyelitis, unspecified (principal); E11.621 Type 2 diabetes mellitus with foot ulcer; L03.115 Cellulitis of right lower limb
CPT/HCPCS: 36415; 73630; 80053; 83036; 85025; 85651; 86140; 87040; 96365; 96366; 96367; 96375; 96376; 99285; J1170; J3370

== ENCOUNTER 2023-10-24 16:52 | Outpatient (CLI) | payer MEDICAID | END 2023-10-24 16:53 | disposition short-term general hospital (02) | LOC: EMS 16:52 | PROVIDERS: ATTEND Emergency Medicine | DX: L03.115 Cellulitis of right lower limb (principal) | CPT/HCPCS: A0425; A0426 ==